=== PATIENT | male | born 1945 | race Caucasian/White ===

== ENCOUNTER 2024-01-05 18:43 | Inpatient (IN) ==
--- NOTE | 2024-01-05 19:13 | Emergency Department Note ---
Impression & Plan Anemia ADMIT ED Provider Note HPI: History obtained from patient. The patient is a 78-year-old gentleman with history of coronary artery disease, on aspirin and Plavix, presents the emergency department stating that he received a call from his PCP today telling him his hemoglobin was low and his creatinine was elevated and he needed to go to the ER. Patient states otherwise he has been in his normal state of health, he states at times he does feel that his stool has been darker than usual. Patient denies any nausea or vomiting, denies any abdominal pain. On arrival here to the ED the patient is hemodynamically stable. He otherwise appears to be in no acute distress. ROS: - Per HPI Differential Diagnosis: Hemorrhoids, colonic AVM, colonic tumor/colon cancer, peptic ulcer disease/upper GI bleed, prerenal azotemia, amongst other potential pathologies. *Outpatient medications and allergy history reviewed. PE: General: Alert HEENT: Normocephalic, trachea midline Eyes: Extraocular eye movement is intact, no scleral erythema Pulmonary: Clear to auscultation bilaterally, no wheezing Cardio: Regular rate and rhythm GI: Abdomen is soft to palpation, rectal examination shows evidence of external hemorrhoids without active bleeding, occult stool testing is positive : No suprapubic tenderness MSK: No evidence of trauma or malformation of the extremities, no edema Skin: No evidence of rash Neuro: Alert, no focal deficits Psychiatric: Cooperative INDEPENDENT INTERPRETATIONS: cardiac monitor: (As interpreted by myself): - An order was placed for continuous cardiac monitoring - Patient was noted to be in sinus rhythm with a rate of 90 Interventions provided in ED: -IV fluid bolus Medical Decision Making: IV was established and lab work obtained, patient was placed on court recording monitor. Lab work shows no leukocytosis, hemoglobin is 8.5 (noted to be 8.4 on outpatient lab work yesterday). Platelet count is within normal limits, CMP shows BUN of 49 and creatinine elevated at 3.63, this appears to be new in comparison to creatinine of 1.7 from April 2023. Lipase is also noted to be slightly elevated at 212, patient denies any abdominal pain. Urinalysis shows 1+ blood without any obvious infection. Patient does have an occult positive stool test. Given his newly found anemia in addition to acute kidney injury in comparison to lab work from April, I do feel he should be admitted to the hospital for GI consultation and further workup. [facility] hospitalist service was consulted for admission, case was discussed with Dr. Stern, and the patient was placed for admission in stable condition. Patient was in agreement to this plan. Consultants/Discussions held with other healthcare providers: -Hospitalist, Dr. Stern Disposition discussion held by myself with: -Patient Diagnosis: 1. Anemia, acute, nonspecific 2. Occult positive stool test, acute 3. Acute kidney injury 4. Elevated BUN Disposition: Admission Satnam Mojica DO Emergency Medicine Past Med/Surg History Problem List (Updated 01/05/24 @ 20:33 by Satnam Mojica DO) Anemia (Acute) Social History Smoking Status: Never smoker Preferred Language: Nepali Feels Safe at Home: Yes Allergies Allergies Allergy/AdvReac Type Severity Reaction Status Date / Time No Known Allergies Allergy Verified 01/05/24 20:29 Home Meds Home Medications Medication Instructions Recorded Confirmed Saccharomyces boulardii 250 mg 250 mg PO BID 01/05/24 01/05/24 capsule (Florastor) acetaminophen 500 mg tablet 500 mg PO DIRECTED PRN 01/05/24 01/05/24 (Tylenol Extra Strength) ARTHRITIC PAIN aspirin 325 mg tablet,delayed 325 mg PO DAILY 01/05/24 01/05/24 release carvedilol 12.5 mg tablet 12.5 mg PO BID 01/05/24 01/05/24 clopidogrel 75 mg tablet 75 mg PO QAM 01/05/24 01/05/24 cyanocobalamin (vitamin B-12) 1,000 mcg PO DAILY 01/05/24 01/05/24 1,000 mcg tablet (Vitamin B-12) glucosamine 750 [id number] 1 tab PO BID 01/05/24 01/05/24 no1 644 mg-C 30 mg-yadira 1 mg tablet (Osteo Bi-Flex Triple Strength) losartan 50 mg tablet 50 mg PO DAILY 01/05/24 01/05/24 naproxen sodium 220 mg tablet 220 mg PO Q8H PRN ARTHRITIC PAIN 01/05/24 01/05/24 (Aleve) omega-3 fatty acids 1,000 mg 1,000 mg PO DAILY 01/05/24 01/05/24 capsule rosuvastatin 40 mg tablet 40 mg PO DAILY 01/05/24 01/05/24 Results & Data (ED) Vital Signs Vital Signs - 24 hr 01/05/24 18:59 01/05/24 19:12 01/05/24 19:24 Temperature 36.8 C Temperature Source Temporal Artery Scan Pulse Rate 82 89 Respiratory Rate 18 Respiratory Effort / Characteristics Non-Labored Spontaneous Respiratory Depth Normal Respiratory Pattern Regular Blood Pressure 122/60 Blood Pressure Mean 80 Pulse Oximetry 100 100 Oxygen Delivery Method Room Air Sepsis Recent Fever Within 48 Hours No Sepsis New/Unexplained Change in Mental Status N/A Sepsis Action Taken by Nursing No Action Required Laboratory Data 01/05/24 19:18 01/05/24 19:18 Lab Results 01/05/24 01/05/24 Range/Units 19:18 19:30 WBC 8.54 (4.8-10.8) K/ul RBC 2.81 L (4.70-6.10) M/uL Hgb 8.5 L (14.0-18.0) g/dl Hct 25.3 L (42.0-52.0) % MCV 90.0 (80.0-100.0) fL MCH 30.2 (25.0-34.0) pg MCHC 33.6 (32.0-36.0) g/dL RDW Std Deviation 45.2 (36.4-46.3) fL RDW Coeff of Emmett 13.6 (11.5-14.5) % Plt Count 354 (130-400) K/uL MPV 9.3 L (9.4-12.4) fL Immature Gran % (Auto) 0.7 % Neut % (Auto) 75.2 % Lymph % (Auto) 14.8 % [place] % (Auto) 6.7 % Eos % (Auto) 1.9 % Baso % (Auto) 0.7 % Neut # (Auto) 6.43 (1.40-6.50) K/uL Lymph # (Auto) 1.26 (1.20-3.40) K/uL [place] # (Auto) 0.57 (0.11-0.59) K/uL Eos # (Auto) 0.16 (0.00-0.50) K/uL Baso # (Auto) 0.06 (0.00-0.20) K/uL Immature Gran # (Auto) 0.06 (0.01-0.20) K/uL PT 10.8 (9.0-12.0) Seconds INR 1.0 (0.9-1.1) Sodium 136 (136-145) mmol/L Potassium 3.6 (3.5-5.1) mmol/L Chloride 104 (98-107) mmol/L Carbon Dioxide 22 (21-32) mmol/L Anion Gap 10 (3-11) BUN 49 H (6-23) mg/dl Creatinine 3.63 H (0.6-1.4) mg/dl Est Cr Clr Drug Dosing 16.2 ml/min Est GFR ( Amer) 17.8 ml/min Est GFR (Non-Af Amer) 15.3 ml/min BUN/Creatinine Ratio 13.5 (10-20) Glucose 146 H (70-99(Fasting)) mg/dl Calcium 10.6 H (8.6-10.3) mg/dl Total Bilirubin 0.3 (0.2-1.0) mg/dl AST 14 (13-39) U/L ALT 9 (7-52) U/L Alkaline Phosphatase 54 (34-104) U/L Total Protein 7.7 (6.0-8.3) gm/dl Albumin 4.6 (3.4-5.0) gm/dl Globulin 3.1 (2.5-4.0) gm/dl Albumin/Globulin Ratio 1.5 (0.9-2) Lipase 212 H (11-82) U/L Urine Color Yellow Urine Appearance Clear (Clear) Urine pH 5.5 (4.5-7.5) Ur Specific [place] 1.005 (1.000-1.030) Urine Protein Trace H (Negative) Urine Glucose (UA) Negative (Negative) Urine Ketones Negative (Negative) Urine Blood 1+ H (Negative) Urine Nitrite Negative (Negative) Urine Bilirubin Negative (Negative) Urine Urobilinogen Negative (Negative) Ur Leukocyte Esterase Negative (Negative) Urine WBC (Auto) 0-5 (0-5) /hpf Urine RBC (Auto) 0-2 (0-2) /hpf U Hyaline Cast (Auto) 3-5 H (0-2) /lpf U Epithel Cells (Auto) 0-2 (0-2) /hpf Urine Bacteria (Auto) None Seen (None Seen) Urine Yeast Present A (None Prsent) Administered Medications Discontinued Medications Sodium Chloride (Nss) 500 mls @ 999 mls/hr IV .Q31M STA Stop: 01/05/24 19:42 Last Infusion: 01/05/24 20:35 Dose: Infused Documented By: Admin: 01/05/24 19:31 Dose: 999 mls/hr Documented By: JEFFERSON Discharge Plan Visit Data Chief Complaint: Referred by Doctor Stated Complaint: ABN TEST, HEMOGLOBIN ED Provider: Satnam Mojica Discharge Problem: Anemia Forms Stand Alone Forms: [facility] [employer] Prescriptions Prescriptions: No Action losartan 50 mg tablet 50 mg PO DAILY carvedilol 12.5 mg tablet 12.5 mg PO BID Rx Instructions: TAKE WITH FOOD omega-3 fatty acids 1,000 mg Capsule 1,000 mg PO DAILY cyanocobalamin (vitamin B-12) [Vitamin B-12] 1,000 mcg Tablet 1,000 mcg PO DAILY clopidogrel 75 mg tablet 75 mg PO QAM acetaminophen [Tylenol Extra Strength] 500 mg Tablet 500 mg PO DIRECTED PRN (Reason: ARTHRITIC PAIN) aspirin 325 mg Tablet,Delayed Release (Dr/Ec) 325 mg PO DAILY naproxen sodium [Aleve] 220 mg Tablet 220 mg PO Q8H PRN (Reason: ARTHRITIC PAIN) rosuvastatin 40 mg tablet 40 mg PO DAILY Saccharomyces boulardii [Florastor] 250 mg Capsule 250 mg PO BID Osteo Bi-Flex Triple Strength 750 mg-644 mg- 30 mg-1 mg Tablet 1 tab PO BID Referrals Referrals: Zachary Chambers MD [Outside Practitioners] - Discharge Problem: Anemia Qualifiers: Anemia type: unspecified type Qualified Code(s): D64.9 - Anemia, unspecified
[2024-01-05] MEDS: SODIUM CHLORIDE 0.9% 500 ML IV STA (19:31)
[2024-01-05 19:55] LABS: Appearance Urine Clear (Clear); Bacteria Urine Automated None Seen (None Seen); Bilirubin Urine Negative (Negative); Blood Urine 1+ (Negative); Color Urine Yellow; Epithelial Cell Urine Auto 0-2 /hpf (0-2); Glucose Urine UA Negative (Negative); Ketones Urine Negative (Negative); Leukocyte Esterase Urine Negative (Negative); Nitrite Urine Negative (Negative); Protein Urine Trace (Negative); RBC Urine Automated 0-2 /hpf (0-2); Specific Gravity Urine 1.005 (1.000-1.030); Urobilinogen Urine Negative (Negative); WBC Urine Automated 0-5 /hpf (0-5); pH Urine 5.5 (4.5-7.5)
[2024-01-05 19:56] LABS: Basophils # (auto) 0.06 K/uL (0.00-0.20); Basophils % (auto) 0.7 %; Eosinophils # (auto) 0.16 K/uL (0.00-0.50); Eosinophils % (auto) 1.9 %; Hematocrit (blood only) 25.3 % (42.0-52.0); Hemoglobin 8.5 g/dl (14.0-18.0); Immature Granulocytes # (auto) 0.06 K/uL (0.01-0.20); Immature Granulocytes % (auto) 0.7 %; Lymphocytes # (auto) 1.26 K/uL (1.20-3.40); Lymphocytes % (auto) 14.8 %; Mean Corpuscular Hemoglobin 30.2 pg (25.0-34.0); Mean Corpuscular Hgb Conc 33.6 g/dL (32.0-36.0); Mean Platelet Volume 9.3 fL (9.4-12.4); Monocytes # (auto) 0.57 K/uL (0.11-0.59); Monocytes % (auto) 6.7 %; Neutrophils # (auto) 6.43 K/uL (1.40-6.50); Neutrophils % (auto) 75.2 %; Platelet Count 354 K/uL (130-400); RDW Coefficient of Variation 13.6 % (11.5-14.5); RDW Standard Deviation 45.2 fL (36.4-46.3); Red Blood Count 2.81 M/uL (4.70-6.10); White Blood Count 8.54 K/ul (4.8-10.8)
[2024-01-05 20:04] LABS: Albumin Globulin Ratio 1.5 (0.9-2); Albumin Level 4.6 gm/dl (3.4-5.0); BUN Creatinine Ratio 13.5 (10-20); Bilirubin,Total 0.3 mg/dl (0.2-1.0); Calcium 10.6 mg/dl (8.6-10.3); Creatinine Clr Calc Pharmacy 16.2 ml/min; Est GFR (African American) 17.8 ml/min; Est GFR (Non-African American) 15.3 ml/min; Globulin 3.1 gm/dl (2.5-4.0); Potassium 3.6 mmol/L (3.5-5.1); Total Protein 7.7 gm/dl (6.0-8.3)
[2024-01-05 20:20] LABS: Prothrombin Time 10.8 Seconds (9.0-12.0)
[2024-01-05 21:39] LABS: Phosphorus 3.4 mg/dl (2.5-4.9)
--- NOTE | 2024-01-05 22:07 | History & Physical Report ---
Date of Service January 05, 2024 Assessment & Plan (1) Anemia: Plan: ? Secondary to transient UGIB from 2 weeks ago FOBT done at the ER was positive. ARF on CRI chronic diastolic heart failure (EF 58%, TTE 2022), patient euvolemic to dry hx PVD status post surgery hypertension, stable hyperlipidemia, on statin Rx DM2 diet-controlled, well-controlled as of recent outpatient hemoglobin A1c of 5.6 few days ago past tobacco abuse Admit to medical telemetry IV PPI Hold antiplatelet Rx for now Anemia workup, transfuse PRBC if hemoglobin less than 8 and or from symptomatic anemia GI consult re: GI bleed N.p.o. after midnight in anticipation of endoscopy Monitor creatinine response to IVF, renal ultrasound without improvement; hold ARB until creatinine back to baseline ISS BG goal 1 10-1 40 DVT prophylaxis. SCDs Re: GI bleed Full code Text document was generated using [employer] voice recognition software. It may contain grammatical or spelling errors. Kindly contact undersigned for clarification of any documentation item in question. History of Present Illness Chief Complaint: Abnormal blood work Primary Care Provider: Kelvin Joseph MD History obtained from patient and records. Medical history significant for chronic diastolic heart failure (EF 58%, TTE 2022), PVD status post surgery, hypertension, hyperlipidemia, DM2 diet- controlled, CRI (baseline creatinine 1.5), urolithiasis, past tobacco abuse. Patient saw PCP yesterday on follow-up visit. 20 pound weight loss in 2 months as per patient. Possible depression from 's demise years ago as per patient but denies suicidality. Transient dark stool passage 2 weeks ago without abdominal pain. Denies hematuria or flank pain. Patient denies headache, chest pain, SOB. No inordinate OTC NSAID intake. Abnormal outpatient blood work drawn from 2 days ago resulted yesterday. Hemoglobin 8.4, creatinine 3.7. Patient directed to ER for evaluation. 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 Allergies Allergy/AdvReac Type Severity Reaction Status Date / Time No Known Allergies Allergy Verified 01/05/24 20:29 Home Medications Medication Instructions Recorded Confirmed Type Saccharomyces boulardii 250 mg 250 mg PO BID 01/05/24 01/05/24 History capsule (Florastor) acetaminophen 500 mg tablet 500 mg PO DIRECTED PRN 01/05/24 01/05/24 History (Tylenol Extra Strength) ARTHRITIC PAIN aspirin 325 mg tablet,delayed 325 mg PO DAILY 01/05/24 01/05/24 History release carvedilol 12.5 mg tablet 12.5 mg PO BID 01/05/24 01/05/24 History clopidogrel 75 mg tablet 75 mg PO QAM 01/05/24 01/05/24 History cyanocobalamin (vitamin B-12) 1,000 mcg PO DAILY 01/05/24 01/05/24 History 1,000 mcg tablet (Vitamin B-12) glucosamine 750 [id number]-[id number] 1 tab PO BID 01/05/24 01/05/24 History no1 644 mg-C 30 mg-yadira 1 mg tablet (Osteo Bi-Flex Triple Strength) losartan 50 mg tablet 50 mg PO DAILY 01/05/24 01/05/24 History naproxen sodium 220 mg tablet 220 mg PO Q8H PRN ARTHRITIC PAIN 01/05/24 01/05/24 History (Aleve) omega-3 fatty acids 1,000 mg 1,000 mg PO DAILY 01/05/24 01/05/24 History capsule rosuvastatin 40 mg tablet 40 mg PO DAILY 01/05/24 01/05/24 History Past Med/Surg History Problem List (Updated 01/05/24 @ 20:33 by Satnam Mojica DO) Anemia (Acute) Social History Smoking Status: Never smoker Preferred Language: Japanese Feels Safe at Home: Yes Review of Systems Review of Systems: As per HPI, all other systems reviewed and negative Physical Exam Physical Exam: GENERAL: Comfortable, pleasant, no respiratory distress SKIN: Pallor, warm HEENT: Alopecia, pale palpebral conjunctivae, no ptosis, dry buccal mucosa NECK : Supple, no tenderness CHEST : CTA, no tenderness HEART : RRR, no obvious murmurs ABDOMEN: Some distention, nontender EXTREMITIES : No LE swelling/tenderness, no other conspicuous deformities noted NEUROLOGIC : Coherent, no facial asymmetry, no other gross focality Results & Data Results & Data Vital Signs (Past 12 Hours) Vital Signs Temp Pulse Pulse Resp BP BP Pulse Ox 01/05/24 21:00 90 18 137/56 L 99 07/24/24 19:24 89 01/05/24 19:12 100 01/05/24 18:59 36.8 C 82 18 122/60 100 O2 Del Method 01/05/24 21:00 Room Air 01/05/24 19:24 01/05/24 19:12 01/05/24 18:59 Room Air Laboratory Results Laboratory Results WBC 8.54 K/ul (4.8-10.8) 01/05/24 19:18 RBC 2.81 M/uL (4.70-6.10) L 01/05/24 19:18 Hgb 8.5 g/dl (14.0-18.0) L 01/05/24 19:18 Hct 25.3 % (42.0-52.0) L 01/05/24 19:18 MCV 90.0 fL (80.0-100.0) 01/05/24 19:18 MCH 30.2 pg (25.0-34.0) 01/05/24 19:18 MCHC 33.6 g/dL (32.0-36.0) 01/05/24 19:18 RDW Std Deviation 45.2 fL (36.4-46.3) 01/05/24 19:18 RDW Coeff of Emmett 13.6 % (11.5-14.5) 01/05/24 19:18 Plt Count 354 K/uL (130-400) 01/05/24 19:18 MPV 9.3 fL (9.4-12.4) L 01/05/24 19:18 Immature Gran % (Auto) 0.7 % 01/05/24 19:18 Neut % (Auto) 75.2 % 01/05/24 19:18 Lymph % (Auto) 14.8 % 01/05/24 19:18 [place] % (Auto) 6.7 % 01/05/24 19:18 Eos % (Auto) 1.9 % 01/05/24 19:18 Baso % (Auto) 0.7 % 01/05/24 19:18 Neut # (Auto) 6.43 K/uL (1.40-6.50) 01/05/24 19:18 Lymph # (Auto) 1.26 K/uL (1.20-3.40) 01/05/24 19:18 [place] # (Auto) 0.57 K/uL (0.11-0.59) 01/05/24 19:18 Eos # (Auto) 0.16 K/uL (0.00-0.50) 01/05/24 19:18 Baso # (Auto) 0.06 K/uL (0.00-0.20) 01/05/24 19:18 Immature Gran # (Auto) 0.06 K/uL (0.01-0.20) 01/05/24 19:18 PT 10.8 Seconds (9.0-12.0) 01/05/24 19:18 INR 1.0 (0.9-1.1) 01/05/24 19:18 Sodium 136 mmol/L (136-145) 01/05/24 19:18 Potassium 3.6 mmol/L (3.5-5.1) 01/05/24 19:18 Chloride 104 mmol/L (98-107) 01/05/24 19:18 Carbon Dioxide 22 mmol/L (21-32) 01/05/24 19:18 Anion Gap 10 (3-11) 01/05/24 19:18 BUN 49 mg/dl (6-23) H 01/05/24 19:18 Creatinine 3.63 mg/dl (0.6-1.4) H 01/05/24 19:18 Est Cr Clr Drug Dosing 16.2 ml/min 01/05/24 19:18 Est GFR ( Amer) 17.8 ml/min 01/05/24 19:18 Est GFR (Non-Af Amer) 15.3 ml/min 01/05/24 19:18 BUN/Creatinine Ratio 13.5 (10-20) 01/05/24 19:18 Glucose 146 mg/dl (70-99(Fasting)) H 01/05/24 19:18 Calcium 10.6 mg/dl (8.6-10.3) H 01/05/24 19:18 Phosphorus 3.4 mg/dl (2.5-4.9) 01/05/24 19:18 Magnesium 2.0 mg/dl (1.7-2.4) 01/05/24 19:18 Total Bilirubin 0.3 mg/dl (0.2-1.0) 01/05/24 19:18 AST 14 U/L (13-39) 01/05/24 19:18 ALT 9 U/L (7-52) 01/05/24 19:18 Alkaline Phosphatase 54 U/L (34-104) 01/05/24 19:18 Total Protein 7.7 gm/dl (6.0-8.3) 01/05/24 19:18 Albumin 4.6 gm/dl (3.4-5.0) 01/05/24 19:18 Globulin 3.1 gm/dl (2.5-4.0) 01/05/24 19:18 Albumin/Globulin Ratio 1.5 (0.9-2) 01/05/24 19:18 Lipase 212 U/L (11-82) H 01/05/24 19:18 Urine Color Yellow 01/05/24 19:30 Urine Appearance Clear (Clear) 01/05/24 19:30 Urine pH 5.5 (4.5-7.5) 01/05/24 19:30 Ur Specific [place] 1.005 (1.000-1.030) 01/05/24 19:30 Urine Protein Trace (Negative) H 01/05/24 19:30 Urine Glucose (UA) Negative (Negative) 01/05/24 19:30 Urine Ketones Negative (Negative) 01/05/24 19:30 Urine Blood 1+ (Negative) H 01/05/24 19:30 Urine Nitrite Negative (Negative) 01/05/24 19:30 Urine Bilirubin Negative (Negative) 01/05/24 19:30 Urine Urobilinogen Negative (Negative) 01/05/24 19:30 Ur Leukocyte Esterase Negative (Negative) 01/05/24 19:30 Urine WBC (Auto) 0-5 /hpf (0-5) 01/05/24 19:30 Urine RBC (Auto) 0-2 /hpf (0-2) 01/05/24 19:30 U Hyaline Cast (Auto) 3-5 /lpf (0-2) H 01/05/24 19:30 U Epithel Cells (Auto) 0-2 /hpf (0-2) 01/05/24 19:30 Urine Bacteria (Auto) None Seen (None Seen) 01/05/24 19:30 Urine Yeast Present (None Prsent) A 07/24/24 19:30 Blood Type O Positive 01/05/24 19:42 Antibody Screen NEGATIVE 01/05/24 19:42 Diagnostic Findings Chest x-ray as per my interpretation, atelectasis, elevated right hemidiaphragm (1) Anemia Anemia type: unspecified type Qualified Code(s): D64.9 - Anemia, unspecified
[2024-01-05] MEDS ORDERED: ACETAMINOPHEN 325 MG TAB PO PRN (22:11)
[2024-01-05] MEDS ORDERED: PROMETHAZINE HCL 6.25 MG in SODIUM CHLORIDE 0.9% 50 ML IV PRN (22:13)
[2024-01-05] MEDS: SODIUM CHLORIDE 0.9% 1,000 ML IV STA (22:24)
[2024-01-05] MEDS: PANTOprazole 80 MG in DEXTROSE 5% 100 ML IV STA (22:24)
[2024-01-05 23:08] LABS: Hematocrit (blood only) 20.2 % (42.0-52.0); Reticulocyte % 1.56 % (0.50-2.00); Reticulocytes # 0.04 10^6/uL (0.020-0.100)
[2024-01-05] MEDS ORDERED: SODIUM CHLORIDE 0.9% 250 ML IV PRN (23:13)
[2024-01-05 23:22] LABS: BUN Creatinine Ratio 12.9 (10-20); Calcium 9.5 mg/dl (8.6-10.3); Creatinine Clr Calc Pharmacy 16.1 ml/min; Est GFR (African American) 17.6 ml/min; Est GFR (Non-African American) 15.2 ml/min; Potassium 3.9 mmol/L (3.5-5.1)
[2024-01-05] MEDS ORDERED: DEXTROSE 50% 50 ML SYRINGE IV PRN (23:34)
[2024-01-05] MEDS ORDERED: CARBOHYDRATES FOR HYPOGLYCEMIA PO PRN (23:34)
[2024-01-05] MEDS ORDERED: GLUCOSE 40% GEL 15 GM TUBE PO PRN (23:34)
[2024-01-05] MEDS ORDERED: GLUCAGON FOR INJ 1 MG VIAL SQ PRN (23:34)
[2024-01-05] MEDS ORDERED: GLUCOSE 10 TAB/TUBE PO PRN (23:34)
[2024-01-05 23:45] LABS: Ferritin 34.9 ng/ml (8-388); Transferrin 232 mg/dl (200-360)
[2024-01-05 23:46] LABS: Folate (Folic Acid),Ser orPlas 9.63 ng/ml (>5.38)
[2024-01-06] MEDS: carvediloL 12.5 MG TAB PO SCH (00:43)
[2024-01-06] MEDS: INSULIN ASPART PER UNIT CHARGE SC SCH (00:45)
[2024-01-06 01:22] LABS: Creatine Kinase 207 U/L (30-223); Iron 72 mcg/dl (35-175)
[2024-01-06] MEDS: SODIUM CHLORIDE 0.9% 1,000 ML IV ONE (03:50)
--- NOTE | 2024-01-06 05:02 | Ultrasound Report ---
Exam(s): US RENAL EXAM: US Retroperitoneal Limited, Renal CLINICAL HISTORY: Reason for exam: renal failure. TECHNIQUE: Real-time limited ultrasound of the retroperitoneum with image documentation. COMPARISON: No relevant prior studies available. FINDINGS: Right kidney: Right kidney measures 11.5 cm in length. No stones. No hydronephrosis. Left kidney: Left kidney measures 11 cm in length. No stones. No hydronephrosis. Bladder: Bilateral ureteric jets are seen. Free fluid: Trace perihepatic fluid is seen. Other findings: Moderate prostatomegaly. IMPRESSION: 1. No hydronephrosis or nephrolithiasis 2. Moderate prostatomegaly Electronically signed by: Arjun Cosme MD 01/06/24 05:01 AM
[2024-01-06 06:03] LABS: Basophils # (auto) 0.04 K/uL (0.00-0.20); Basophils % (auto) 0.5 %; Eosinophils # (auto) 0.16 K/uL (0.00-0.50); Eosinophils % (auto) 2.1 %; Hematocrit (blood only) 24.5 % (42.0-52.0); Hemoglobin 8.3 g/dl (14.0-18.0); Immature Granulocytes # (auto) 0.05 K/uL (0.01-0.20); Immature Granulocytes % (auto) 0.6 %; Lymphocytes # (auto) 1.05 K/uL (1.20-3.40); Lymphocytes % (auto) 13.6 %; Mean Corpuscular Hemoglobin 29.4 pg (25.0-34.0); Mean Corpuscular Hgb Conc 33.9 g/dL (32.0-36.0); Mean Corpuscular Volume 86.9 fL (80.0-100.0); Mean Platelet Volume 9.1 fL (9.4-12.4); Monocytes # (auto) 0.59 K/uL (0.11-0.59); Monocytes % (auto) 7.7 %; Neutrophils # (auto) 5.82 K/uL (1.40-6.50); Neutrophils % (auto) 75.5 %; Platelet Count 257 K/uL (130-400); RDW Coefficient of Variation 13.8 % (11.5-14.5); RDW Standard Deviation 43.3 fL (36.4-46.3); Red Blood Count 2.82 M/uL (4.70-6.10); White Blood Count 7.71 K/ul (4.8-10.8)
[2024-01-06 06:16] LABS: BUN Creatinine Ratio 12.7 (10-20); Creatinine Clr Calc Pharmacy 16.3 ml/min; Est GFR (African American) 17.9 ml/min; Est GFR (Non-African American) 15.4 ml/min; Potassium 3.7 mmol/L (3.5-5.1)
--- OUTSIDE RECORDS SUMMARY | 2024-01-06 07:22 | External Medical Summary | Summary of Care ---
Author Name Unknown Organization [facility] Address [address] [facility] [place] [address] Phone [phone] Care Team Providers Care Intensive Care Specialist Name Role Phone Unavailable Primary Care Provider Unavailabl e Reason for Visit * Reason Comments Outpatient Testing Encounter Details Date Type Department Care Team (Late st Contact Info) Description 12/21/2023 10:20 AM EDT Laboratory Laboratory [address] [place] [phone] [place], Lab [address] [place] [address] Type 2 diabetes mellitus with hemoglobin A1c goal of less than 7.0% ([facility]); Encounter for long-term (current) use of medications Allergies No known active allergiesdocumented as of this encounter (statuses as of 12/21/2023) Medications Medication Sig Dispensed Refills Start Date End Date Status OSTEO BI-FLEX ADV TRIPLE ST PO TABS Take by mouth 1 Tablet 2 times a day . Active OMEGA-3 FATTY ACIDS 1200 MG PO CAPS Fish oil Active Saccharomyces boulardii (PROBIOTIC) 250 MG CAPS Take by mouth 2 times a day . 01/31/2019 Active Clopidogrel Bisulfate 75 MG Oral Tablet (pLAVix) Take 1 Tablet by mouth in the morning. 06/02/2021 Active Vitamin B-12 1000 MCG Oral TabletIndications:Enc ounter for long-term (current) use of medications Take by mouth 1 Tablet in the morning. 100 Tablet 1 11/07/2021 Active Aspirin Buf(BmNaki-TsFbzr-PsP ) 325 MG Oral Tablet Take by mouth 1 Tablet daily . 02/24/2022 Active metFORMIN HCl 1000 MG Oral Tablet (Glucophage)Indicatio ns:Type 2 diabetes mellitus with hemoglobin A1c goal of less than 7.0% (HCC),Abnormal glucose,Hyperglycemia TAKE 1 TABLET BY MOUTH TWICE DAILY WITH MORNING AND EVENING MEALS 180 Tablet 1 08/02/2023 Active Losartan Potassium 50 MG Oral Tablet (Cozaar)Indications:E ssential hypertension with goal blood pressure less than 140/90,Cardiac disease TAKE 1 TABLET BY MOUTH DAILY 90 Tablet 1 08/23/2023 Active Tamsulosin HCl 0.4 MG Oral Capsule (Flomax) Take 1 Capsule by mouth in the morning. 90 Capsule 1 10/22/2023 Active Carvedilol 12.5 MG Oral Tablet (Coreg)Indications:At herosclerosis of [place] coronary artery of [place] heart without angina pectoris,Essential hypertension with goal blood pressure less than 140/90,Cardiac disease TAKE 1 TABLET BY MOUTH TWICE DAILY WITH FOOD 180 Tablet 3 12/13/2023 Active Rosuvastatin Calcium 40 MG Oral Tablet (Crestor)Indications: Dyslipidemia, goal LDL below 70 TAKE 1 TABLET BY MOUTH IN THE MORNING 90 Tablet 3 12/13/2023 Active documented as of this encounter (statuses as of 12/21/2023) Active Problems Problem Noted Date Diagnosed Date Chronic kidney disease, stage 3a 05/24/2023 Overview: Per CKD protocol Prediabetes 07/25/2018 Overview: Per Prediabetes protocol #1 Primary hypertension 12/09/2015 Seborrheic keratosis 11/05/2011 DYSLIPIDEMIA, GOAL LDL BELOW 100 05/23/2009 Overview: Per Lipid Taxonomy. Osteoarthrosis Atherosclerosis of [place] co ronary artery of [place] heart without angina pectoris STAGE 1 DIASTOLIC DYSFUNCTION BMI 29.0-29.9,adult documented as of this encounter (statuses as of 12/21/2023) Resolved Problems Problem Noted Date Diagnosed Date Resolved Date Encounter for surveillance of abnormal nevi 05/04/2016 12/23/2017 Overview: dysplastic nevus (L lower flank) AK (actinic keratosis) 02/28/201407/06 Hyperglycemia 05/09/2012 12/29/2018 Overview: glucose 180 Conjunctivitis 01/09/2010 11/14/2012 Benign neoplasm of colon 07/14/200701/2018 Mixed dyslipidemia 9 Overview: Per Lipid Taxonomy. History of colon polyps 05/14 HTN, goal below 140/90 12/16 documented as of this encounter (statuses as of 12/21/2023) Immunizations Name Administration Dates Next Due COVID-19 mRNA, LNP-s, No Pre serve, 2-Dose Series (Ule) 03/25/2021,08/20/2020,07/30/2020 COVID-19, LNP-s, No Preserve , Sae-sucrose, Ages 12+ (Pfizer) 09/23/2021 COVID-19, MRNA-LNP, 23-24, P F, 30 MCG/0.3 mL, 12 YRS AND ABOVE, IM ([employer]) 03/18/2023 Covid-19, Mrna, Lnp-s, Pf, B ivalent, 30 Mcg, IM, 12 yrs and above (Ule) 04/14/2022 Pneumococcal Conjugate Vacc, 13 Valent (Prevnar) 11/19/2014 Pneumococcal Polysaccharide PPV23 (Pneumovax) 05/19/2013,01/12/2008 Seasonal Influenza, PF, 6 M & above, IM , (FluLaval or Fluzone) 04/20/2018,03/26/2017 Seasonal Influenza, Quadriva lent Hd (Fluzone Hd) 02/19/2023,02/24/2022,03/21/2021 Seasonal Influenza, Quadriva lent, No Preserve, IM 03/07/2020,03/19/2016,04/09/2015 Seasonal Influenza, Split, I IV3, With Preserve, Inj 02/28/2014,03/23/2013,04/05/2012,04/21,04/01/2010,02/25/2009,03/19/2008 Seasonal Influenza, Trivalen t, Adjuvanted, 65+ yrs 04/18/2019 TD - Tetanus/Diptheria (ADULT) 06/15/2003 TDAP (age 10 and older)(Boostrix) 10/04/2015 TDAP, Age 7 and older, IM (Adacel) 11/05/2011 Varicella Zoster Vaccine (Adult) 12/14/2011 Zoster Vaccine Recombinant (Shingrix) 07/11/2020 ,03/07/2020 documented as of this encounter Social History Tobacco Use Types Packs/Day Years Used Date Smoking Tobacco: Former Cigarettes 3 30 0 06/14/1967 - 06/14/1997 Smokeless Tobacco: Current Snuff Comments:smoked 3 packs per day x 30 Alcohol Use Standard Drinks/Week Comments Yes 0 (1 standard drink = 0.6 oz pur e alcohol) a couple gin and tonics a week PHQ-2 Answer Date Recorded PHQ Adult Total Score 1 07/18/2020 Hunger Vital Sign Answer Date Recorded Worried About Running Out of Food in the Last Ye ar Never true 12/29/2018 Ran Out of Food in the Last Year Never true 12/29/2018 Utilities Answer Date Recorded Do you have trouble paying y our heating, water, or electric bill? (Adult - for ages 18 years and over) Not on file 11/30/2023 Is your family able to pay t he heat, water, or electric bill? (Household - for ages 0-17 years) Not on file 11/30/2023 Does your family have access to good internet? (Household - for ages 0-17 years) Not on file 11/30/2023 Social Connections Answer Date Recorded How often do you feel lonely or isolated from those around you? (Adult - for ages 18 years and over) Not on file 11/30/2023 Sex and Gender Information Value Date Recorded Sex Assigned at Not on file Gender Identity Not on file Sexual Orientation Straight 07/18/2020 11 :10 AM EST Job Start Date Occupation Industry Not on file Not on file Not on file documented as of this encounter Plan of Treatment Upcoming Encounters Date Type Department Care Team (Late st Contact Info) Description 01/04/2024 11:00 AM EDT Office Visit Family Medicine [address] [place] [phone] Kelvin Joseph MD [address] [place] [address] [place] [address] 05/03/2024 2:00 PM EST Office Visit Cardiology, [facility] [address] [place] [address] Wen Woodson PA-C [address] [place] [phone] 09/11/2024 11:00 AM EDT Office Visit Dermatology [address] [place] [address] Kylah Basurto PA-C [address] [place] [address] [place] [phone] Pending Results Name Type Priority Associated Diagnoses Date /Time HEMOGLOBIN A1C Lab Routine Type 2 diabetes mellitus with hemoglobin A1c goal of less than 7.0% (HCC) Encounter for long-term (current) use of medications 12/21/2023 10:00 AM EDT ALBUMIN / CREATININE RATIO, URINE Lab Routine Type 2 diabetes mellitus with hemoglobin A1c goal of less than 7.0% (HCC) Encounter for long-term (current) use of medications 12/21/2023 10:00 AM EDT LIPID PANEL WITH DIRECT LDL IF TG IS HIGH Lab Routine Type 2 diabetes mellitus with hemoglobin A1c goal of less than 7.0% (HCC) Encounter for long-term (current) use of medications 12/21/2023 10:00 AM EDT Scheduled Procedures Name Priority Associated Diagnoses Date/Ti me COLONOSCOPY FLEXIBLE PROXIMAL DIAGNOSTIC Recall History of colon polyps Health Maintenance Due Date Last Done Comments CKD PHOS USE SMARTSET 85519 1963 Depression Screening 07/18/2021 07/18/2020 CKD HGB USE SMARTSET 19599 06/02/202206/02, 06/02/2021, 11/22/2020, Additional history exists B-12 01/20/2023 01/20/2022, 02/0 06/2021, 07/11/2020, Additional history exists COVID-19 Vaccine ( season) 2023 03/18/2023, 04/14/2022, 09/23/2021, Additional history exists Albumin/Creatinine Ratio 07/24/2023 023, 07/15/2021, 07/11/2020, Additional history exists HbA1c 07/24/2023 07/24/2022, 08/0 02/2022, 07/15/2021, Additional history exists Colonoscopy 11/01/2023 10/31/2021, 10/31/2021 GFR 12/03/2023 06/03/2023, 04/14, 07/24/2022, Additional history exists Influenza Vaccine (FLU shot) (#1) 2024 02/19/2023, 02/24/2022, 03/21/2021, Additional history exists DTaP,Tdap,and Td Vaccines (3 - Td or Tdap) 10/03/2025 10/04/2015, 11/05/2011, 06/15/2003 Pneumococcal Vaccine: 65+ Years Completed 11/19/2014, 05/19/2013, 01/12/2008 Zoster Vaccines Completed 07/11/2020, 02/13, 12/14/2011 Cologuard Discontinued 08/13/2021, 07/16, 08/06/2021, Additional history exists RETIRED - COLONOSCOPY-EVERY 2 YRS AGES 18-100 Discontinued 10/31/2021, 10/31/2021 HPV (Gardasil) Vaccine Aged Out No lo nger eligible based on patient's age to complete this topic Hepatitis B Vaccine Aged Out No longe r eligible based on patient's age to complete this topic MENINGOCOCCAL (MENACTRA/MENVEO) Aged Out No longer eligible based on patient's age to complete this topic documented as of this encounter Medical Devices Not on filedocumented as of this encounter Visit Diagnoses Diagnosis Type 2 diabetes mellitus with hemoglobin A1c goal of less than 7.0% (HCC) Encounter for long-term (current) use of medications Encounter for long-term (current) use of other medications documented in this encounter
--- OUTSIDE RECORDS SUMMARY | 2024-01-06 07:22 | External Medical Summary | Summary of Care ---
Author Name Unknown Organization [facility] Address [address] [facility] [place] [address] Phone [phone] Care Team Providers Care [employer] Fighter Name Role Phone Kelvin Joseph MD Primary Care Provide r Reason for Visit * Reason Comments Outpatient Testing Encounter Details Date Type Department Care Team (Late st Contact Info) Description 01/04/2024 11:40 AM EDT Laboratory Laboratory [address] [place] [phone] [place] [address] Arrived Allergies No known active allergiesdocumented as of this encounter (statuses as of 01/04/2024) Medications Medication Sig Dispensed Refills Start Date [...] morning. 100 Tablet 1 11/07/2021 Active Aspirin Buf(NrNqsr-LtRnmx-BtC ) 325 MG Oral Tablet Take by mouth 1 Tablet daily . 02/24/2022 Active Losartan Potassium 50 MG Oral Tablet (Cozaar)Indications:E ssential hypertension with goal blood pressure less than 140/90,Cardiac disease TAKE 1 TABLET BY MOUTH DAILY 90 Tablet 1 08/23/2023 Active Tamsulosin HCl 0.4 MG Oral Capsule (Flomax) Take 1 Capsule by mouth in the morning. 90 Capsule 1 10/22/2023 Active Carvedilol 12.5 MG Oral Tablet (Coreg)Indications:At herosclerosis of [place] coronary artery of [place] heart without angina pectoris,Essential hypertension with goal blood pressure less than 140/90,Cardiac disease TAKE 1 TABLET BY MOUTH TWICE DAILY WITH FOOD 180 Tablet 3 12/13/2023 Active Rosuvastatin Calcium 40 MG Oral Tablet (Crestor)Indications: Dyslipidemia, goal LDL below 70 TAKE 1 TABLET BY MOUTH IN THE MORNING 90 Tablet 3 12/13/2023 Active documented as of this encounter (statuses as of 01/04/2024) Active Problems Problem Noted Date Diagnosed Date BPH without obstruction/lower urinary tract symp toms 01/04/2024 Chronic kidney disease, stage 3a 05/24/2023 Overview: Per CKD protocol Primary hypertension 12/09/2015 Seborrheic keratosis 11/05/2011 DYSLIPIDEMIA, GOAL LDL BELOW 100 05/23/2009 Overview: Per Lipid Taxonomy. Osteoarthrosis Atherosclerosis of [place] co ronary artery of [place] heart without angina pectoris STAGE 1 DIASTOLIC DYSFUNCTION BMI 29.0-29.9,adult documented as of this encounter (statuses as of 01/04/2024) Resolved Problems Problem Noted Date Diagnosed Date Resolved Date Prediabetes 07/25/2018 01/04/2024 Overview: Per Prediabetes protocol #1 Encounter for surveillance of abnormal nevi 05/04/2016 12/23/2017 Overview: dysplastic nevus (L lower flank) AK (actinic keratosis) 02/28/201407/06 Hyperglycemia 05/09/2012 12/29/2018 Overview: glucose 180 Conjunctivitis 01/09/2010 11/14/2012 Benign neoplasm of colon 07/14/200701/2018 Mixed dyslipidemia 9 Overview: Per Lipid Taxonomy. History of colon polyps 05/14 HTN, goal below 140/90 12/16 documented as of this encounter (statuses as of 01/04/2024) Immunizations Name Administration Dates Next Due COVID-19 mRNA, LNP-s, No Pre serve, 2-Dose Series ([employer]) 03/25/2021,08/20/2020,07/30/2020 COVID-19, LNP-s, No Preserve , Sae-sucrose, Ages 12+ (Pfizer) 09/23/2021 COVID-19, MRNA-LNP, 23-24, P F, 30 MCG/0.3 mL, 12 YRS AND ABOVE, IM ([facility]) 03/18/2023 Covid-19, Mrna, Lnp-s, Pf, B ivalent, 30 Mcg, IM, 12 yrs and above ([employer]Registry) 04/14/2022 Pneumococcal Conjugate Vacc, 13 Valent (Prevnar) [...] Care Team (Late st Contact Info) Description 05/03/2024 2:00 PM EST Office Visit Cardiology, [facility] [address] [facility] [place] [address] Wen Woodson PA-C [address] [place] [address] [place] [phone] 09/11/2024 11:00 AM EDT Office Visit Dermatology [address] [place] [address] Kylah Basurto PA-C [address] [place] [address] [place] [phone] Scheduled Procedures Name Priority Associated Diagnoses Date/Ti me COLONOSCOPY FLEXIBLE PROXIMAL DIAGNOSTIC Recall History of colon polyps Health Maintenance Due Date Last Done Comments CKD PHOS USE SMARTSET 43130 1963 Depression Screening 07/18/2021 07/18/2020 CKD HGB USE SMARTSET 35085 06/02/202206/02, 06/02/2021, 11/22/2020, Additional history exists COVID-19 Vaccine (2022-24 season) 2023 03/18/2023, 04/14/2022, 09/23/2021, Additional history exists Colonoscopy 11/01/2023 10/31/2021, 10/31/2021 GFR 12/03/2023 06/03/2023, 04/14, 07/24/2022, Additional history exists Influenza Vaccine (FLU shot) (#1) 2024 02/19/2023, 02/24/2022, 03/21/2021, Additional history exists Albumin/Creatinine Ratio 12/20/2024 024, 07/24/2022, 07/15/2021, Additional history exists HbA1c 12/20/2024 12/21/2023, 07/15, 01/20/2022, Additional history exists DTaP,Tdap,and Td Vaccines (3 [...] Not on filedocumented as of this encounter Care Teams [employer] Fighter Relationship Specialty Start Date End Date Kelvin Joseph MD [address] [place] [address] [place] [phone] PCP - General Family Medicine 12/22/23 documented as of this encounter
--- OUTSIDE RECORDS SUMMARY | 2024-01-06 07:22 | External Medical Summary ---
Author Name Unknown Address Unknown Organization [id number]:[facility] [place] [facility] [place] [address] [place] [address] Laboratory Report Ordering Provider Test Date Status PAMELLA REYCharlie 01/04/2024 11:33:00 Елена l Observation Date Value Abnormality Reference (Units ) Status TSH 01/04/2024 11:33:00 0.77 0.27-4.20 (uIU/mL) Final Performing Location [facility] [place] [facility] [place] [address] [place] [address]
--- OUTSIDE RECORDS SUMMARY | 2024-01-06 07:22 | External Medical Summary ---
Author Name Unknown Address Unknown Organization [id number]:[facility] [place] [facility] [address] [facility] [place] [address] Laboratory Report Ordering Provider Test Date Status TRUDY MORENO 12/21/2023 10:00:37 Final Observation Date Value Abnormality Reference (Units ) Status Triglyceride 12/21/2023 10:00:37 149 <=174 ( mg/dL) Final Triglyceride Reference Range s (mg/dL):
<150 Acceptable
150-174 Borderline high
175-499 High
>=500 Very high Cholesterol 12/21/2023 10:00:37 60 <200 (mg /dL) Final Total Cholesterol Reference Ranges (mg/dL):
<200 Desirable
200-239 Borderline high
>=240 High HDL 12/21/2023 10:00:37 25 Below low normal >39 (mg/dL) Final HDL Cholesterol Reference Ra nges (mg/dL):
>=60 High (Desirable)
<50 Low (Undesirable) For Females
<40 Low (Undesirable) For Males NON-HDL CHOLESTEROL 12/21/2023 10:00:37 35 <=159 (mg/dL) Final Non-HDL Cholesterol Referenc e Range (mg/dL):
<100 Target level for high risk ASCVD patient
<130 Optimal for general population
130-159 Near optimal for general population
160-189 Borderline High
190-219 High
>=220 Very High LDL, (calculated) 12/21/2023 10:00:37 5 <= 129 (mg/dL) Final LDL Cholesterol Reference Ra nges (mg/dL):
<70 Target level for high risk ASCVD patient
<100 Optimal for general population
100-129 Near optimal for general population
130-159 Borderline high
160-189 High
>=190 Very high Performing Location LAB[facility]ATORY [facility] [place] - [address] [facility] [address]
--- OUTSIDE RECORDS SUMMARY | 2024-01-06 07:22 | External Medical Summary ---
Author Name Unknown Address Unknown Organization [id number]:[facility] [place] [facility] [address] [facility] [address] [place] [address] Laboratory Report Ordering Provider Test Date Status PRANAV REY 01/04/2024 11:33:00 Елена l Observation Date Value Abnormality Reference (Units ) Status BUN 01/04/2024 11:33:00 54 Above high normal 6-20 (mg/dL) Final Creatinine 01/04/2024 11:33:00 3.7 Above high normal 0.6-1.2 (mg/dL) Final Glomerular filtration rate/1.73 sq M.predicted [Volume Rate/Area] in Serum, Plasma or Blood by Creatinine-based formula (CKD-EPI) 01/04/2024 11:33:00 16 Below low normal >=60 (mL/min) Final eGFR is calculated based on the CKD-EPI 2020 equation. Sodium 01/04/2024 11:33:00 139 135-146 (m mol/L) Final Potassium 01/04/2024 11:33:00 4.1 3.5-5.1 (m mol/L) Final Cl 01/04/2024 11:33:00 104 98-107 (mm ol/L) Final CO2 01/04/2024 11:33:00 19 Below low normal 22- 32 (mmol/L) Final Anion gap 01/04/2024 11:33:00 16 Above high normal 7- 15 (mmol/L) Final Glucose 01/04/2024 11:33:00 117 70-120 (mg /dL) Final Calcium 01/04/2024 11:33:00 10.7 Above high normal 8. 4-10.2 (mg/dL) Final Performing Location [facility] [place] [facility] [address] [place] [address]
--- OUTSIDE RECORDS SUMMARY | 2024-01-06 07:22 | External Medical Summary ---
Author Name Unknown Address Unknown Organization [id number]:[place] [facility] [place] [facility] [address] [facility] [address] [place] [address] Laboratory Report Ordering Provider Test Date Status PRANAV REY 01/04/2024 11:33:00 Елена l Observation Date Value Abnormality Reference (Units ) Status WBC, Total 01/04/2024 11:33:00 8.78 4.00-10.80 (K/uL) Final RBC 01/04/2024 11:33:00 2.73 4.50-5.25 (M/uL) Final Hemoglobin 01/04/2024 11:33:00 8.4 Below low normal 14.0-16.8 (g/dL) Final HCT 01/04/2024 11:33:00 25.7 Below low normal 40.0-48.4 (%) Final MCV 01/04/2024 11:33:00 94.1 82.0-99.5 (fL) Final MCH 01/04/2024 11:33:00 30.8 27.0-34.0 (pg) Final MCHC 01/04/2024 11:33:00 32.7 32.0-36.0 (g/dL) Final RDW 01/04/2024 11:33:00 13.6 11.5-15.5 (%) Final Platelets 01/04/2024 11:33:00 322 140-400 (K/uL) Final MPV 01/04/2024 11:33:00 9.4 6.6-11.1 (fL) Final Nucleated erythrocytes/100 leukocytes [Ratio] in Blood by Automated count 01/04/2024 11:33:00 0 <=0 (/100 WBCs) Final Performing Location [facility] [place] - [address] [place] [address]
--- OUTSIDE RECORDS SUMMARY | 2024-01-06 07:22 | External Medical Summary | Summary of Care ---
Author Name Unknown Organization [facility] Address [address] [facility] [place] [address] Phone [phone] Care Team Providers Care Die Tripper Name Role Phone Unavailable Primary Care Provider Unavailabl e Reason for Visit * Reason Comments eRx-Medication Refill Encounter Details Date Type Department Care Team (Late st Contact Info) Description 12/10/2023 Refill Cardiology [address] [place] [phone] Xavi Rangel MD [address] [place] [address] Dyslipidemia, goal LDL below 70* Allergies No known active allergiesdocumented as of this encounter (statuses as of 12/13/2023) Medications Medication Sig Dispensed Refills Start Date [...] 06/02/2021 Active Vitamin B-12 1000 MCG Oral TabletIndications: Encounter for long-term (current) use of medications Take by mouth 1 Tablet in the morning. 100 Tablet 1 11/07/2021 Active Aspirin Buf(CaCarb-MgCarb- MgO) 325 MG Oral Tablet Take by mouth 1 Tablet daily . 02/24/2022 Active metFORMIN HCl 1000 MG Oral Tablet (Glucophage)Indica tions:Type 2 diabetes mellitus with hemoglobin A1c goal of less than 7.0% (HCC),Abnormal glucose,Hyperglyce endy TAKE 1 TABLET BY MOUTH TWICE DAILY WITH MORNING AND EVENING MEALS 180 Tablet 1 08/02/2023 Active Losartan Potassium 50 MG Oral Tablet (Cozaar)Indication s:Essential hypertension with goal blood pressure less than 140/90,Cardiac disease TAKE 1 TABLET BY MOUTH DAILY 90 Tablet 1 08/23/2023 Active Tamsulosin HCl 0.4 MG Oral Capsule (Flomax) Take 1 Capsule by mouth in the morning. 90 Capsule 1 10/22/2023 Active Carvedilol 12.5 MG Oral Tablet (Coreg)Indications :Atherosclerosis of [place] coronary artery of [place] heart without angina pectoris,Essential hypertension with goal blood pressure less than 140/90,Cardiac disease TAKE 1 TABLET BY MOUTH TWICE DAILY WITH FOOD 180 Tablet 3 12/13/2023 Active Rosuvastatin Calcium 40 MG Oral Tablet (Crestor)Indicatio ns:Dyslipidemia, goal LDL below 70 TAKE 1 TABLET BY MOUTH IN THE MORNING 90 Tablet 3 12/13/2023 Active Rosuvastatin Calcium 40 MG Oral Tablet (Crestor) TAKE 1 TABLET BY MOUTH IN THE MORNING 90 Tablet 3 01/11/2023 4 Discontinued documented as of this encounter (statuses as of 12/13/2023) Active Problems Problem Noted Date Diagnosed Date Chronic kidney disease, stage 3a 05/24/2023 Overview: Per CKD protocol Prediabetes 07/25/2018 Overview: Per Prediabetes protocol #1 Primary hypertension 12/09/2015 Seborrheic keratosis 11/05/2011 DYSLIPIDEMIA, GOAL LDL BELOW 100 05/23/2009 Overview: Per Lipid Taxonomy. Osteoarthrosis Atherosclerosis of [place] co ronary artery of [place] heart without angina pectoris STAGE 1 DIASTOLIC DYSFUNCTION BMI 29.0-29.9,adult documented as of this encounter (statuses as of 12/13/2023) Resolved Problems Problem Noted Date Diagnosed Date [...] as of this encounter (statuses as of 12/13/2023) Immunizations Name Administration Dates Next Due COVID-19 mRNA, LNP-s, No Pre serve, 2-Dose Series ([facility]) 03/25/2021,08/20/2020,07/30/2020 COVID-19, LNP-s, No Preserve , Sae-sucrose, Ages 12+ ([facility]) 09/23/2021 COVID-19, MRNA-LNP, 23-24, P F, 30 MCG/0.3 mL, 12 YRS AND ABOVE, IM ([facility] 03/18/2023 Covid-19, Mrna, Lnp-s, Pf, B ivalent, 30 Mcg, IM, 12 yrs and above ([facility]) 04/14/2022 Pneumococcal Conjugate Vacc, 13 Valent (Prevnar) [...] on file documented as of this encounter Miscellaneous Notes * Telephone Encounter - Claire Zuluaga LPN - 12/13/2023 11:38 AM EDT Pt informed via voicemail message of need to have labs. * Telephone Encounter - Stefanie Bray CRNP - 12/13/2023 11:34 AM EDTSigned Prescriptions: Disp Refills Rosuvastatin Calcium 40 MG Oral Tablet (Cr*90 Tab*3 Sig: TAKE 1 TABLET BY MOUTH IN THE MORNING Authorizing Provider: STEFANIE BRAY * Telephone Encounter - Stefanie Bray CRNP - 12/13/2023 11:34 AM EDT Needs lipid panel and LFTs. * Telephone Encounter - Callie Soler CMA - 12/13/2023 10:00 AM EDTPending Prescriptions: Disp Refills Rosuvastatin Calcium 40 MG Oral Tablet (Cr*90 Tab*3 Sig: TAKE 1 TABLET BY MOUTH IN THE MORNING * Telephone Encounter - Callie Soler CMA - 12/13/2023 10:00 AM EDT Did you pend patient's preferred pharmacy and medication before forwarding?yes Pharmacy: [facility] Pending Prescriptions: Disp Refills Rosuvastatin Calcium 40 MG Oral Tablet (C*90 Tab*3 Sig: TAKE 1 TABLET BY MOUTH IN THE MORNING Last Visit: 02/24/2022 (in office), Visit date not found (telemedicine) Next Visit: Visit date not found If no future appointments scheduled, and last appointment is greater than a year ago, please schedule patient for a follow-up appointment Last date the medication was ordered: 01-11-2023 Is this request for a controlled substance?No Urine Drug Screen:No results found for this or any previous visit. Patient Phone Numbers Labs: Lab Results Component Value Date/Time CREAT 1.5 (H) 06/03/2023 11:12 AM CREAT 1.17 09/06/2020 12:00 AM CREAT 0.9 07/11/2020 11:06 AM POTASSIUM 3.8 06/03/2023 11:12 AM POTASSIUM 4.0 09/06/2020 12:00 AM POTASSIUM 4.5 07/11/2020 11:06 AM LDLCALC 47 07/06/2019 10:43 AM LDLDIRECT 30 07/24/2022 12:06 PM LDLDIRECT 58 07/11/2020 11:06 AM LDLDIRECT 81 02/25/2009 10:46 AM ALT 16 07/24/2022 12:06 PM ALT 21 12/07/2017 04:15 PM HGBA1C 6.6 (H) 07/24/2022 12:06 PM HGBA1C 6.1 (H) 07/11/2020 11:06 AM documented in this encounter Plan of Treatment Upcoming Encounters Date Type Department Care Team (Late st Contact Info) Description 01/04/2024 11:00 AM EDT Office Visit Family Medicine [address] [place] [phone] Kelvin Joseph MD [address] [place] [address] [place] [phone] 05/03/2024 2:00 PM EST Office Visit Cardiology, [facility] [address] [facility] [place] [address] Wen Woodson PA-C [address] [place] [address] [place] [address] 09/11/2024 11:00 AM EDT Office Visit Dermatology [address] [place] [address] Kylah Basurto PA-C [address] [place] [address] [place] [address] Scheduled Procedures Name Priority Associated Diagnoses Date/Ti me COLONOSCOPY FLEXIBLE PROXIMAL DIAGNOSTIC Recall History of colon polyps Health Maintenance Due Date Last Done Comments CKD PHOS USE SMARTSET 88742 1965 Depression Screening 07/18/2021 07/18/2020 CKD HGB USE SMARTSET 37679 06/02/202206/02, 06/02/2021, 11/22/2020, Additional history exists B-12 01/20/2023 01/20/2022, 06/2021, 07/11/2020, Additional history exists COVID-19 Vaccine (2022- season) 2023 03/18/2023, 04/14/2022, 09/23/2021, Additional history exists Albumin/Creatinine Ratio 07/24/2023 023, 07/15/2021, 07/11/2020, Additional history exists HbA1c 07/24/2023 07/24/2022, 02/2022, 07/15/2021, Additional history exists Colonoscopy 11/01/2023 [...] 2 YRS AGES 18-100 Discontinued 10/31/2021, 10/31/2021 GARDASIL-HPV IMMUNIZATION SERIES Aged Out No longer eligible based on patient's age to complete this topic Hepatitis B Aged Out No longer eligi ble based on patient's age to complete this topic MENINGOCOCCAL (MENACTRA/MENVEO) Aged Out No longer eligible based on patient's age to complete this topic documented as of this encounter Medical Devices Not on filedocumented as of this encounter Visit Diagnoses Diagnosis Dyslipidemia, goal LDL below 70- Primary Other and unspecified hyperlipidemia documented in this encounter
--- OUTSIDE RECORDS SUMMARY | 2024-01-06 07:22 | External Medical Summary | Summary of Care ---
Author Name Unknown Organization [facility] Address [address] [facility] [place] [address] Phone [phone] Care Team Providers Care Events Traffic Controller Name Role Phone Unavailable Primary Care Provider Unavailabl e Reason for Visit * Reason Comments eRx-Medication Refill Encounter Details Date Type Department Care Team (Late st Contact Info) Description 12/10/2023 Refill Cardiology [address] [place] [address] Xavi Rangel MD [address] [place] [address] Dyslipidemia, goal LDL below 70* Allergies No [...] 12.5 MG Oral Tablet (Coreg)Indications :Atherosclerosis of [place] coronary artery of [place] heart without angina pectoris,Essential hypertension with goal [...] Overview: Per Lipid Taxonomy. Osteoarthrosis Atherosclerosis of [place] co ronary artery of [place] heart without angina pectoris STAGE 1 DIASTOLIC [...] mRNA, LNP-s, No Pre serve, 2-Dose Series ([employer]) 03/25/2021,08/20/2020,07/30/2020 COVID-19, LNP-s, No Preserve , Sae-sucrose, Ages 12+ ([employer]) 09/23/2021 COVID-19, MRNA-LNP, 23-24, P F, 30 MCG/0.3 mL, 12 YRS AND ABOVE, IM [facility] 03/18/2023 Covid-19, Mrna, Lnp-s, Pf, B ivalent, 30 Mcg, IM, 12 yrs and above ([employer]) 04/14/2022 Pneumococcal Conjugate Vacc, 13 Valent (Prevnar) [...] pharmacy and medication before forwarding?yes Pharmacy: [facility] Pending Prescriptions: Disp Refills Rosuvastatin Calcium [...] 11:00 AM EDT Office Visit Family Medicine [address] [place] [address] Kelvin Joseph MD [address] [place] [address] [place] [address] 05/03/2024 2:00 PM EST Office Visit Cardiology, [facility] [address] [facility] [place] [address] Wen Woodson PA-C [address] [place] [address] [place] [address] 09/11/2024 11:00 AM EDT Office Visit Dermatology [address] [place] [address] Kylah Basurto PA-C [address] [place] [address] [place] [address] Scheduled Procedures Name Priority Associated Diagnoses Date/Ti me COLONOSCOPY FLEXIBLE PROXIMAL DIAGNOSTIC Recall History of colon polyps Health Maintenance Due Date Last Done Comments CKD PHOS USE SMARTSET 14051 1963 Depression Screening 07/18/2021 07/18/2020 CKD HGB USE SMARTSET 30190 06/02/202206/02, 06/02/2021, 11/22/2020, Additional history exists B-12 [...]
--- OUTSIDE RECORDS SUMMARY | 2024-01-06 07:22 | External Medical Summary ---
Author Name Unknown Address Unknown Organization K01:[facility] [place] [address] [facility] [address] Laboratory Report Ordering Provider Test Date Status TRUDY MORENO 12/21/2023 10:00:37 Final Observation Date Value Abnormality Reference (Units ) Status HbA1C 12/21/2023 10:00:37 5.6 4.0-5.6 (% ) Final The use of HbA1c to monitor glycemic status is based on normal hemoglobin and HbA composition. This test should not be used in patients with abnormal hemoglobin that affects the half life of the red blood cell or the in vivo glycation rates. Glucose, estimated average 12/21/2023 10:00:37 114 <126 (mg/dL) Final Performing Location [facility] [place] [facility] [address] [facility] [address]
--- OUTSIDE RECORDS SUMMARY | 2024-01-06 07:22 | External Medical Summary | Summary of Care ---
Author Name Unknown Organization [facility] Address [address] [facility] [place] [address] Phone [phone] Care Team Providers Care Inside Sales Advisor Name Role Phone Unavailable Primary Care Provider Unavailabl e Reason for Visit * Reason Onset Date Comments Advice 09/21/2023 Encounter Details Date Type Department Care Team (Late st Contact Info) Description 09/21/2023 Telephone Cardiology, [facility] [address] [place] [phone] Xavi Rangel MD [address] [place] [phone] Advice Allergies No known active allergiesdocumented as of this encounter (statuses as of 09/23/2023) Medications Medication Sig Dispensed Refills Start Date End Date Status OSTEO BI-FLEX ADV TRIPLE ST PO TABS Take by mouth 1 Tablet 2 times a day . 0 Active OMEGA-3 FATTY ACIDS 1200 MG PO CAPS Fish oil 0 Active Saccharomyces boulardii (PROBIOTIC) 250 MG CAPS Take by mouth 2 times a day . 0 01/31/2019 Active Clopidogrel Bisulfate 75 MG Oral Tablet (pLAVix) Take 1 Tablet by mouth in the morning. 0 06/02/2021 Active Vitamin B-12 1000 MCG Oral TabletIndications:Enc ounter for long-term (current) use of medications Take by mouth 1 Tablet in the morning. 100 Tablet 1 11/07/2021 Active Aspirin Buf(NrLbvv-AgDfuf-UlH ) 325 MG Oral Tablet Take by mouth 1 Tablet daily . 0 02/24/2022 Active Carvedilol 12.5 MG Oral Tablet (Coreg)Indications:At herosclerosis of [place] coronary artery of [place] heart without angina pectoris,Essential hypertension with goal blood pressure less than 140/90,Cardiac disease TAKE 1 TABLET BY MOUTH TWICE DAILY WITH FOOD 180 Tablet 3 01/08/2023 Active Rosuvastatin Calcium 40 MG Oral Tablet (Crestor) TAKE 1 TABLET BY MOUTH IN THE MORNING 90 Tablet 3 01/11/2023 Active metFORMIN HCl 1000 MG Oral Tablet [...] mouth in the morning. 90 Capsule 1 08/23/2023 Active documented as of this encounter (statuses as of 09/23/2023) Active Problems Problem Noted Date Diagnosed Date Chronic kidney disease, stage 3a 05/24/2023 Overview: Per CKD protocol Prediabetes 07/25/2018 Overview: Per Prediabetes protocol #1 Primary hypertension 12/09/2015 Seborrheic keratosis 11/05/2011 DYSLIPIDEMIA, GOAL LDL BELOW 100 05/23/2009 Overview: Per Lipid Taxonomy. Osteoarthrosis Atherosclerosis of [place] co ronary artery of [place] heart without angina pectoris STAGE 1 DIASTOLIC DYSFUNCTION BMI 29.0-29.9,adult documented as of this encounter (statuses as of 09/23/2023) Resolved Problems Problem Noted Date Diagnosed Date [...] as of this encounter (statuses as of 09/23/2023) Immunizations Name Administration Dates Next Due COVID-19 mRNA, LNP-s, No Pre serve, 2-Dose Series ([facility]) 03/25/2021,08/20/2020,07/30/2020 COVID-19, LNP-s, No Preserve , Sae-sucrose, Ages 12+ ([facility]) 09/23/2021 COVID-19, MRNA-LNP, 23-24, P F, 30 MCG/0.3 mL, 12 YRS AND ABOVE, IM ([facility]) 03/18/2023 Covid-19, Mrna, Lnp-s, Pf, B ivalent, 30 Mcg, IM, 12 yrs and above ([facility]) 04/14/2022 Pneumococcal Conjugate Vacc, 13 Valent (Prevnar) [...] 06/15/2003 TDAP (age 10 and older)(Boostrix) 10/04/2015 TDAP (age 11 and older)(Adacel) 11/05/2011 Varicella Zoster Vaccine (Adult) 12/14/2011 Zoster [...] in the Last Year Never true 12/29/2018 Sex and Gender Information Value Date Recorded Sex Assigned at Not on file Gender Identity Not on file Sexual Orientation Straight 07/18/2020 11 :10 AM EST Job Start Date Occupation Industry Not on file Not on file Not on file documented as of this encounter Miscellaneous Notes * Telephone Encounter - Tyler Heart RN - 09/23/2023 2:10 PM EDT Called and spoke tot he patient and and reviewed the message wit him from Dr. Rangel. He state he has an appointment with a new PCP in December 2023. * Telephone Encounter - Xavi Rangel MD - 09/23/2023 9:37 AM EDT Renal function has changed since last prescribed. Would not routinely prescribed without close clinical follow-up. Patient needs to establish with primary care physician * Telephone Encounter - Whit Aguilar CMA - 09/22/2023 10:[address] Rangel has not prescribed Meloxicam since 2018. Patient has no PCP listed. Please advise if Meloxicam therapy is appropriate and if you are willing to prescribe. * Telephone Encounter - Madonna Murdock OSA - 09/21/2023 11:20 AM EDT Person calling: Pt Number to return call: [phone] Reason for call: Pt calling in. He was previously prescribed Meloxicam by Dr. Rangel for his arthritis pain. Pt is asking if Dr. Rangel would be willing to re prescribe him the medication again for his pain. Pharmacy: [facility] - mail order pharmacy Provider Name: Dr. Rangel Please advise. Thank you. documented in this encounter Plan of Treatment Upcoming Encounters Date Type Department Care Team (Late st Contact Info) Description 01/04/2024 11:00 AM EDT Office Visit Family Medicine [address] [place] [phone] Kelvin Joseph MD [address] [place] [address] [place] [address] 05/03/2024 2:00 PM EST Office Visit Cardiology, [facility] [address] [facility] [place] [address] Wen Woodson PA-C [address] [place] [address] [place] [phone] 09/11/2024 11:00 AM EDT Office Visit Dermatology [address] [place] [address] Kylah Basurto PA-C [address] [place] [address] [place] [address] Scheduled Procedures Name Priority Associated Diagnoses Date/Ti me COLONOSCOPY FLEXIBLE PROXIMAL DIAGNOSTIC Recall History of colon polyps Health Maintenance Due Date Last Done Comments CKD PHOS USE SMARTSET 93851 1963 Depression Screening 07/18/2021 07/18/2020 CKD HGB USE SMARTSET 69857 06/02/202206/02, 06/02/2021, 11/22/2020, Additional history exists B-12 01/20/2023 01/20/2022, 0206/2021, 07/11/2020, Additional history exists Albumin/Creatinine Ratio 07/24/2023 023, 07/15/2021, 07/11/2020, Additional history exists HbA1c 07/24/2023 07/24/2022, 08/0 02/2022, 07/15/2021, Additional history exists COLONOSCOPY-EVERY 2 YRS AGES 18-100 11/01/2023 10/31/2021, 10/31/2021 GFR 12/03/2023 06/03/2023, 04/14, 07/24/2022, Additional history exists DTaP,Tdap,and Td Vaccines (3 - Td or Tdap) 10/03/2025 10/04/2015, 11/05/2011, 06/15/2003 Pneumococcal Vaccine: 65+ Years Completed 11/19/2014, 05/19/2013, 01/12/2008 Zoster Vaccines Completed 07/11/2020, 02/13, 12/14/2011 Cologuard Discontinued 08/13/2021, 07/16, 08/06/2021, Additional history exists Colonoscopy Discontinued 10/31/2021, 10/31/2021 Colorectal Cancer Screening Discontinued Influenza Vaccine (FLU shot) Completed 02/19/2023, 02/24/2022, 03/21/2021, Additional history exists COVID-19 Vaccine Completed 03/18/2023, 06/2021, 09/23/2021, Additional history exists Fecal Occult Blood Test Discontinued GARDASIL-HPV IMMUNIZATION SERIES Aged Out No longer eligible based on patient's age to complete this topic Hepatitis B Aged Out No longer eligi ble based on patient's age to complete this topic MENINGOCOCCAL (MENACTRA/MENVEO) Aged Out No longer eligible based on patient's age to complete this topic Sigmoidoscopy Discontinued documented as of this encounter Medical Devices Not on filedocumented as of this encounter
--- OUTSIDE RECORDS SUMMARY | 2024-01-06 07:22 | External Medical Summary ---
Author Name Unknown Address Unknown Organization K01:[facility] [place] [address] [facility] [address] Laboratory Report Ordering Provider Test Date Status PRANAV REY 01/04/2024 11:33:00 Леена l Observation Date Value Abnormality Reference (Units ) Status SYNC LEUKOCYTES IN BLOOD BY AUTOMATED COUNT 01/04/2024 11:33:00 8.78 4.00-10.80 (K/uL) Final Segs 01/04/2024 11:33:00 76.8 Above high normal 40.0-75.0 (%) Final Lymphs % 01/04/2024 11:33:00 13.0 Below low normal 18.0-42.0 (%) Final Monos 01/04/2024 11:33:00 6.7 1.0-11.0 (%) Final Eosinophils 01/04/2024 11:33:00 2.1 0.0-6.0 (%) Final Basos 01/04/2024 11:33:00 0.6 0.0-2.0 (%) Final Immature Granulocyte, Percent 01/04/2024 11:33:00 0.8 0.0-2.0 (%) Final Absolute Segs 01/04/2024 11:33:00 6.75 1.80-7.70 (K/uL) Final Lymphs, absolute 01/04/2024 11:33:00 1.14 1.00-4.80 (K/ul) Final Monos, Abs 01/04/2024 11:33:00 0.59 0.00-1.10 (K/uL) Final Eos, Abs 01/04/2024 11:33:00 0.18 0.00-0.70 (K/uL) Final Basos, Abs 01/04/2024 11:33:00 0.05 0.00-0.20 (K/uL) Final Immature Granulocytes, Number 01/04/2024 11:33:00 0.07 0.00-0.20 (K/uL) Final Performing Location [facility] [place] - [facility] [place] [address] [facility] [address]
--- OUTSIDE RECORDS SUMMARY | 2024-01-06 07:22 | External Medical Summary | Summary of Care ---
Author Name Unknown Organization [facility] Address [address] [facility] [place] [address] Phone [phone] Care Team Providers Care Gas Plant Repairer Name Role Phone Unavailable Primary Care Provider Unavailabl e Reason for Visit * Reason Comments eRx-Medication Refill Encounter Details Date Type Department Care Team (Late st Contact Info) Description 12/10/2023 Refill Family Medicine [address] [place] [phone] Zachary Chambers MD [address] [place] [address] [place] [address] Atherosclerosis of nondalton coronary artery of nondalton heart without angina pectoris; Essential hypertension with goal blood pressure less than 140/90; STAGE 1 DIASTOLIC DYSFUNCTION Allergies No known active allergiesdocumented as of [...] mouth 1 Tablet daily . 02/24/2022 Active Rosuvastatin Calcium 40 MG Oral Tablet [...] 12.5 MG Oral Tablet (Coreg)Indications :Atherosclerosis of nondalton coronary artery of nondalton heart without angina pectoris,Essential hypertension with goal blood pressure less than 140/90,Cardiac disease TAKE 1 TABLET BY MOUTH TWICE DAILY WITH FOOD 180 Tablet 3 12/13/2023 Active Carvedilol 12.5 MG Oral Tablet (Coreg)Indications :Atherosclerosis of nondalton coronary artery of nondalton heart without angina pectoris,Essential hypertension with goal blood pressure less than 140/90,Cardiac disease TAKE 1 TABLET BY MOUTH TWICE DAILY WITH FOOD 180 Tablet 3 01/08/2023 4 Discontinued documented as of this encounter (statuses as of 12/13/2023) Active Problems Problem Noted Date Diagnosed Date Chronic kidney disease, stage 3a 05/24/2023 Overview: Per CKD protocol Prediabetes 07/25/2018 Overview: Per Prediabetes protocol #1 Primary hypertension 12/09/2015 Seborrheic keratosis 11/05/2011 DYSLIPIDEMIA, GOAL LDL BELOW 100 05/23/2009 Overview: Per Lipid Taxonomy. Osteoarthrosis Atherosclerosis of nondalton co ronary artery of nondalton heart without angina pectoris STAGE 1 DIASTOLIC [...] mRNA, LNP-s, No Pre serve, 2-Dose Series ([employer]) 03/25/2021,08/20/2020,07/30/2020 COVID-19, LNP-s, No Preserve , Sae-sucrose, Ages 12+ ([employer]) 09/23/2021 COVID-19, MRNA-LNP, 23-24, P F, 30 MCG/0.3 mL, 12 YRS AND ABOVE, IM ([facility]) 03/18/2023 Covid-19, Mrna, Lnp-s, Pf, B ivalent, 30 Mcg, IM, 12 yrs and above ([employer]) 04/14/2022 Pneumococcal Conjugate Vacc, 13 Valent (Prevnar) [...] encounter Miscellaneous Notes * Telephone Encounter - Cecilia Brooke PA-C - 12/13/2023 8:07 AM EDTSigned Prescriptions: Disp Refills Carvedilol 12.5 MG Oral Tablet (Coreg) 180 Ta*3 Sig: TAKE 1 TABLET BY MOUTH TWICE DAILY WITH FOOD Authorizing Provider: CECILIA BROOKE * Telephone Encounter - Lars Moran [facility] [place] [facility] - 12/12/2023 7:40 AM EDT Pending Prescriptions: Disp Refills Carvedilol 12.5 MG Oral Tablet 180 Ta*3 Sig: TAKE 1 TABLET BY MOUTH TWICE DAILY WITH FOOD * Telephone Encounter - Lars Moran [facility] - 12/12/2023 7:28 AM EDT Patient has no PCP under whom to authorize refills. Please approve if appropriate. Thanks, Lars Moran, PharmD Clinical Pharmacist [facility] [phone] 12/12/2023, 7:28 AM documented in this encounter Plan of Treatment Upcoming Encounters Date Type Department Care Team (Late st Contact Info) Description 01/04/2024 11:00 AM EDT Office Visit Family Medicine [address] [place] [phone] Kelvin Joseph MD [address] [place] [address] [place] [address] 05/03/2024 2:00 PM EST Office Visit Cardiology, [facility] [address] [place] [address] Wen Woodson PA-C [address] [place] [address] 09/11/2024 11:00 AM EDT Office Visit Dermatology [address] [place] [address] Kylah Basurto PA-C [address] [place] [place] [address] [place] [phone] Scheduled Procedures Name Priority Associated Diagnoses Date/Ti me COLONOSCOPY FLEXIBLE PROXIMAL DIAGNOSTIC Recall History of colon polyps Health Maintenance Due Date Last Done Comments CKD PHOS USE SMARTSET 02447 1963 Depression Screening 07/18/2021 07/18/2020 CKD HGB USE SMARTSET 33633 06/02/202206/02, 06/02/2021, 11/22/2020, Additional history exists B-12 01/20/2023 01/20/2022, 0206/2021, 07/11/2020, Additional history exists COVID-19 Vaccine (2022- season) 2023 03/18/2023, 04/14/2022, 09/23/2021, Additional history exists Albumin/Creatinine Ratio 07/24/20232 023, 07/15/2021, 07/11/2020, Additional history exists HbA1c [...] 2 YRS AGES 18-100 Discontinued 10/31/2021, 10/31/2021 Influenza Vaccine (FLU shot) Completed 02/19/2023, 02/24/2022, 03/21/2021, Additional history exists GARDASIL-HPV IMMUNIZATION SERIES Aged Out No longer [...] as of this encounter Visit Diagnoses Diagnosis Atherosclerosis of nondalton coronary artery of nondalton heart without angina pectoris Essential hypertension with goal blood pressure less than 140/90 STAGE 1 DIASTOLIC DYSFUNCTION Heart disease, unspecified documented in this encounter
--- OUTSIDE RECORDS SUMMARY | 2024-01-06 07:22 | External Medical Summary | Summary of Care ---
Author Name Unknown Organization [facility] Address [address] [facility] [place] [address] Phone [phone] Care Team Providers Care Merchant Tailor Name Role Phone Kelvin Joseph MD Primary Care Provide r Reason for Visit * Reason Comments NEW PATIENT Encounter Details Date Type Department Care Team (Late st Contact Info) Description 01/04/2024 11:00 AM EDT Office Visit Family Medicine [address] [phone] Kelvin Joseph MD [address] [place] [address] [place] [address] Type 2 diabetes mellitus with hemoglobin A1c goal of less than 7.0% ([facility])*; Chronic kidney disease, stage 3a ([facility]); Loss of weight; HTN, goal below 140/90; BPH without obstruction/lower urinary tract symptoms Allergies No known active allergiesdocumented as of [...] 12.5 MG Oral Tablet (Coreg)Indications :Atherosclerosis of cahu[place] coronary artery of [place]ahu[place] heart without angina pectoris,Essential hypertension with goal blood pressure less than 140/90,Cardiac disease TAKE 1 TABLET BY MOUTH TWICE DAILY WITH FOOD 180 Tablet 3 12/13/2023 Active Rosuvastatin Calcium 40 MG Oral Tablet (Crestor)Indicatio ns:Dyslipidemia, goal LDL below 70 TAKE 1 TABLET BY MOUTH IN THE MORNING 90 Tablet 3 12/13/2023 Active metFORMIN HCl 1000 MG Oral Tablet (Glucophage)Indica tions:Type 2 diabetes mellitus with hemoglobin A1c goal of less than 7.0% (HCC),Abnormal glucose,Hyperglyce endy TAKE 1 TABLET BY MOUTH TWICE DAILY WITH MORNING AND EVENING MEALS 180 Tablet 1 12/22/2023 01/04/2024 Discontinued (Medication List Clean Up) documented as of this encounter (statuses as of 01/04/2024) Active Problems Problem Noted Date Diagnosed Date BPH without obstruction/lower urinary tract symp toms 01/04/2024 Chronic kidney disease, stage 3a 05/24/2023 Overview: Per CKD protocol Primary hypertension 12/09/2015 Seborrheic keratosis 11/05/2011 DYSLIPIDEMIA, GOAL LDL BELOW 100 05/23/2009 Overview: Per Lipid Taxonomy. Osteoarthrosis Atherosclerosis of cahu[place] co ronary artery of cahu[place] heart without angina pectoris STAGE 1 DIASTOLIC [...] mRNA, LNP-s, No Pre serve, 2-Dose Series ([employer]) 03/25/2021,08/20/2020,07/30/2020 COVID-19, LNP-s, No Preserve , Sae-sucrose, Ages 12+ ([employer]) 09/23/2021 COVID-19, MRNA-LNP, 23-24, P F, 30 MCG/0.3 mL, 12 YRS AND ABOVE, IM ([facility]) 03/18/2023 Covid-19, Mrna, Lnp-s, Pf, B ivalent, 30 Mcg, IM, 12 yrs and above ([employer]) 04/14/2022 Pneumococcal Conjugate Vacc, 13 Valent (Prevnar) [...] 06/14/1967 - 06/14/1997 Smokeless Tobacco: Current Snuff Tobacco Cessation:Ready to Q uit: Not Asked; Counseling Given: Not Answered Comments:smoked 3 packs per day x 30 [...] on file documented as of this encounter Last Filed Vital Signs Vital Sign Reading Time Taken Comments Blood Pressure 110/58 01/04/2024 10:50 AM EDT Pulse 87 01/04/2024 10:50 AM EDT Temperature 36.4 C (97.6 F) 01/04/2024 10:50 AM E DT Respiratory Rate 16 01/04/2024 10:50 AM EDT Oxygen Saturation 98% 01/04/2024 10:50 AM EDT Inhaled Oxygen Concentration - - Weight 68 kg (150 lb) 01/04/2024 10:50 AM EDT Height 170.2 cm (5' 7") 01/04/2024 10:50 AM EDT Body Mass Index 23.49 01/04/2024 10:50 AM EDT documented in this encounter Progress Notes * Kelvin Joseph MD - 01/04/2024 11:07 AM EDT Subjective: HPI: Meghan Todd is a 78 year old male with hx of DMII, CAD, Carotid stenosis s/p R endarterectomy and stent, HTN, HLD, CKD III seen for DMII: - on Metformin 1000mg BID - recent A1C was 5.6 - pt has been eating less red meat and carbs - pt is losing weight with it - A1C prior to that was 6.6 - denied any night sweats and bloody or black stool HTN: -on coreg 12.5mg BID, Losartan 50mg daily HLD: - on crestor 40mg daily CAD: - on plavix, crestor and aspirin 325mg -- per pt vascular doctor is okay with DAPT - denied any SE BPH: - on flomax Patient Active Problem List Diagnosis Osteoarthrosis Atherosclerosis of cahuilla coronary artery of cahuilla heart without angina pectoris DYSLIPIDEMIA, GOAL LDL BELOW 100 STAGE 1 DIASTOLIC DYSFUNCTION BMI 29.0-29.9,adult Seborrheic keratosis Primary hypertension Chronic kidney disease, stage 3a (HCC) BPH without obstruction/lower urinary tract symptoms Current Outpatient Medications Medication Sig Dispense Refill OSTEO BI-FLEX ADV TRIPLE ST PO TABS Take by mouth 1 Tablet 2 times a day . OMEGA-3 FATTY ACIDS 1200 MG PO CAPS Fish oil Saccharomyces boulardii (PROBIOTIC) 250 MG CAPS Take by mouth 2 times a day . Clopidogrel Bisulfate 75 MG Oral Tablet (pLAVix) Take 1 Tablet by mouth in the morning. Vitamin B-12 1000 MCG Oral Tablet Take by mouth 1 Tablet in the morning. 100 Tablet 1 Aspirin Buf(HwTdey-RoMrak-OzQ) 325 MG Oral Tablet Take by mouth 1 Tablet daily . Losartan Potassium 50 MG Oral Tablet (Cozaar) TAKE 1 TABLET BY MOUTH DAILY 90 Tablet 1 Tamsulosin HCl 0.4 MG Oral Capsule (Flomax) Take 1 Capsule by mouth in the morning. 90 Capsule 1 Carvedilol 12.5 MG Oral Tablet (Coreg) TAKE 1 TABLET BY MOUTH TWICE DAILY WITH FOOD 180 Tablet 3 Rosuvastatin Calcium 40 MG Oral Tablet (Crestor) TAKE 1 TABLET BY MOUTH IN THE MORNING 90 Tablet 3 No current facility-administered medications for this visit. 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 Coronary atherosclerosis of cahuilla coronary artery Encounter for surveillance of abnormal nevi 04/19/2017 HTN, goal below 140/90 Mixed dyslipidemia Need for hepatitis C screening test 11/13/13 Hepatitis C negative Osteoarthrosis Other abnormal glucose 05/09/12 glucose 180 Other seborrheic keratosis 11/05/11 back on lower left Personal history of colonic polyps 2006 S/P angioplasty with stent Right Carotid 1999 S/P carotid endarterectomy Right side only 1998 STAGE 1 DIASTOLIC DYSFUNCTION Past Surgical History: Procedure Laterality Date COLOGUARD 01/18/2018 negative COLOGUARD 08/06/2021 positive COLONOSCOPY 2006 [place] COLONOSCOPY, DIAGNOSTIC (RECTUM) 10/31/2021 8 mm polyp cecum, 4 mm descending, 6 mm sigmoid, performed by Rufina Fernandes MD at ENDOSCOPY [facility] COLONOSCOPY, SURGICAL 11/01/2007 normal [place], Dr Cancino CT ABD/PELVIS W IV CONTRAST - WO ORAL CONTRAST 07/31/2014 normal except short segment dissection left common iliac, degenerative changes spine CT ABD/PELVIS WO IV CONTRAST - W ORAL CONTRAST 04/11/2014 tiny right ureteral calculus with mild right hydronephrosis, mod coronary artery calcification, enlarged proatate, diverticulosis, chronic 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 minor degenerative changes cartilage US ABDOMEN COMPLETE 12/24/2017 normal US RENAL 04/19/2015 normal VASC ANKLE BRACHIAL INDEX 03/20/2009 normal VASC ANKLE BRACHIAL INDEX VASC DUPLEX CAROTID BILAT 03/20/2009 elevated velocities at origin of right carotid stent, progressed since last visit, left stable 50-69% stenosis VASC DUPLEX CAROTID BILAT 09/18/2009 50-69% LICA right carotid stent without stenosis VASC DUPLEX CAROTID BILAT 03/30/2012 50-69% LICA stenosis, right carotid stent patent Review of patient's allergies indicates: No Known Allergies Family History Problem Relation Name Age of Onset Diabetes Mother Heart Disorder Mother Heart Disorder Father Social History Tobacco Use Smoking status: Former Current packs/day: 0.00 Average packs/day: 3.0 packs/day for 30.0 years (90.0 ttl pk-yrs) Types: Cigarettes Start date: 06/14/1967 Quit date: 06/14/1997 Years since quittin.5 Smokeless tobacco: Current Types: Snuff Tobacco comments: smoked 3 packs per day x 30 Substance Use Topics Alcohol use: Yes Comment: a couple gin and tonics a week Vaping/E-Cigarette Use Vaping/E-Cigarette Use Never User Vaping/E-Cigarette Substances Vaping/E-Cigarette Devices ROS: -Per HPI OBJECTIVE: BP 110/58 | Pulse 87 | Temp 36.4 C (97.6 F) (Tympanic) | Resp 16 | Ht 1.702 m (5' 7") | Wt 68 kg (150 lb) | SpO2 98% | BMI 23.49 kg/m | BSA 1.79 m PHYSICAL EXAM: Vitals are reviewed General:. NAD, well developed HEENT:. Normal Conjunctiva, EOMI Cardiac:.systolic murmur, Normal S1, S2 Lungs:. CTA, no wheezing or crackles MSK:. Normal gait Psych:. AAOx3, normal affect ASSESSMENT/PLAN: VSS and Normal PE I suspect pt's weight loss is 2/2 change in diet - no red flag on hx or exam - labs today Stopped the metformin due to significant improvement of A1C - repeat A1C in 3 months Advised the pt to increase his water intake Continue flomax Type 2 diabetes mellitus with hemoglobin A1c goal of less than 7.0% ([facility]) (Primary) - HEMOGLOBIN A1C; Future; Expected date: 04/05/2024 Chronic kidney disease, stage 3a (HCC) - BASIC METABOLIC PANEL Loss of weight - TSH WITH FREE T4 IF INDICATED - CBC WITH WBC DIFFERENTIAL HTN, goal below 140/90 BPH without obstruction/lower urinary tract symptoms Follow Up: Return in about 6 months (around 07/06/2024). Kelvin Joseph MD Family medicine, [address] [address] documented in this encounter Nursing Notes * Maria Elena Owen LPN - 01/04/2024 10:[address] Chambers Had Meloxicam in past. Would like to restart for arthritis. Currently takes OTC aleve and tylenol. Weight loss Lower leg cramps. Lightheadedness Depression symptoms Overall weakness Discuss lipids. documented in this encounter Plan of Treatment Upcoming Encounters Date Type Department Care Team (Late st Contact Info) Description 05/03/2024 2:00 PM EST Office Visit Cardiology, [facility] [address] [facility] [place] [phone] Wen Woodson PA-C [address] [place] [phone] 09/11/2024 11:00 AM EDT Office Visit Dermatology [address] [place] [address] Kylah Basurto PA-C [address] [place] [address] [place] [phone] Pending Results Name Type Priority Associated Diagnoses Date /Time BASIC METABOLIC PANEL Lab Routine Chronic kidney disease, stage 3a (HCC) 01/04/2024 11:33 AM EDT TSH WITH FREE T4 IF INDICATED Lab Routine Loss of weight 01/04/2024 11:33 AM EDT CBC WITH WBC DIFFERENTIAL Lab Routine Loss of weight 01/04/2024 11:33 AM EDT CBC Lab Routine Loss of weight 01/04/2024 11:33 AM EDT DIFFERENTIAL, AUTOMATED Lab Routine Loss of weight 01/04/2024 11:33 AM EDT Scheduled Orders Name Type Priority Associated Diagnoses Orde r Schedule HEMOGLOBIN A1C Lab Routine Type 2 diabetes mellitus with hemoglobin A1c goal of less than 7.0% (HCC) Expected: 04/05/2024, Expires: 01/03/2025 Scheduled Procedures Name Priority Associated Diagnoses Date/Ti me COLONOSCOPY FLEXIBLE PROXIMAL DIAGNOSTIC Recall History of colon polyps Health Maintenance Due Date Last Done Comments CKD PHOS USE SMARTSET 65693 1965 Depression Screening 07/18/2021 07/18/2020 CKD HGB USE SMARTSET 82390 06/02/202206/02, 06/02/2021, 11/22/2020, Additional history exists COVID-19 Vaccine (2022- season) [...] hemoglobin A1c goal of less than 7.0% (HCC)- Primary Chronic kidney disease, stage 3a (HCC) Loss of weight HTN, goal below 140/90 Unspecified essential hypertension BPH without obstruction/lower urinary tract symptoms Hypertrophy of prostate without urinary obstruction and other lower urinary tract symptoms (LUTS) documented in this encounter Care Teams Merchant Tailor Relationship Specialty Start Date End Date Kelvin Joseph MD [address] [place] [address] [place] [address] PCP - General Family Medicine 12/22/23 documented as of this encounter
--- OUTSIDE RECORDS SUMMARY | 2024-01-06 07:22 | External Medical Summary | Summary of Care ---
Author Name Unknown Organization [facility] Address [address] [facility] [place] [address] Phone [phone] Care Team Providers Care Migratory Game Bird Biologist Name Role Phone Unavailable Primary Care Provider Unavailabl e Reason for Visit * Reason Onset Date Comments Medication Refill 10/22/2023 Encounter Details Date Type Department Care Team (Late st Contact Info) Description 10/22/2023 Refill Family Medicine [address] [place] [phone] Kelvin Joseph MD [address] [place] [address] [place] [address] Allergies No known active allergiesdocumented as of this encounter (statuses as of 10/22/2023) Medications Medication Sig Dispensed Refills Start Date [...] 02/24/2022 Active Carvedilol 12.5 MG Oral Tablet (Coreg)Indications :Atherosclerosis of unga coronary artery of unga heart without angina pectoris,Essential hypertension with goal [...] the morning. 90 Capsule 1 10/22/2023 Active Tamsulosin HCl 0.4 MG Oral Capsule (Flomax) Take 1 Capsule by mouth in the morning. 90 Capsule 1 08/23/2023 10/22/2023 Discontinued (Refill) documented as of this encounter (statuses as of 10/22/2023) Active Problems Problem Noted Date Diagnosed Date Chronic kidney disease, stage 3a 05/24/2023 Overview: Per CKD protocol Prediabetes 07/25/2018 Overview: Per Prediabetes protocol #1 Primary hypertension 12/09/2015 Seborrheic keratosis 11/05/2011 DYSLIPIDEMIA, GOAL LDL BELOW 100 05/23/2009 Overview: Per Lipid Taxonomy. Osteoarthrosis Atherosclerosis of unga co ronary artery of unga heart without angina pectoris STAGE 1 DIASTOLIC DYSFUNCTION BMI 29.0-29.9,adult documented as of this encounter (statuses as of 10/22/2023) Resolved Problems Problem Noted Date Diagnosed Date [...] as of this encounter (statuses as of 10/22/2023) Immunizations Name Administration Dates Next Due COVID-19 mRNA, LNP-s, No Pre serve, 2-Dose Series ([employer]) 03/25/2021,08/20/2020,07/30/2020 COVID-19, LNP-s, No Preserve , Sae-sucrose, Ages 12+ ([employer]) 09/23/2021 COVID-19, MRNA-LNP, 23-24, P F, 30 MCG/0.3 mL, 12 YRS AND ABOVE, IM ([email or web address]) 03/18/2023 Covid-19, Mrna, Lnp-s, Pf, B ivalent, 30 Mcg, IM, 12 yrs and above ([employer]) 04/14/2022 Pneumococcal Conjugate Vacc, 13 Valent (Prevnar) [...] encounter Miscellaneous Notes * Telephone Encounter - Bogdan Blair, BRET - 10/22/2023 9:48 AM EDT Pending Prescriptions: Disp Refills Tamsulosin HCl 0.4 MG Oral Capsule (Floma*90 Cap*1 Sig: Take 1 Capsule by mouth in the morning. Last Visit: 07/24/2022 (in office), Visit date not found (telemedicine) Next Visit: 01/04/2024 Last date the medication was ordered: [id number] Patient Active Problem List Diagnosis Code Osteoarthrosis M19.90 Atherosclerosis of unga coronary artery of unga heart without angina pectoris I25.10 DYSLIPIDEMIA, GOAL LDL BELOW 100 E78.5 STAGE 1 DIASTOLIC DYSFUNCTION I51.9 BMI 29.0-29.9,adult Z68.29 Seborrheic keratosis L82.1 Primary hypertension I10 Prediabetes R73.03 Chronic kidney disease, stage 3a (HCC) N18.31 Labs: Lab Results Component Value Date/Time CREATININE - [facility] 1.5 (H) 06/03/2023 11:12 AM CREATININE - [facility] 0.9 07/11/2020 11:06 AM CREATININE, RANDOM URINE - [facility] 131 07/24/2022 12:06 PM CREATININE, RANDOM URINE - [facility] 89 07/11/2020 11:05 AM CREATININE-OUTSIDE LAB 1.17 09/06/2020 12:00 AM Lab Results Component Value Date/Time POTASSIUM - [facility] 3.8 06/03/2023 11:12 AM POTASSIUM - [facility] 4.5 07/11/2020 11:06 AM POTASSIUM-OUTSIDE LAB 4.0 09/06/2020 12:00 AM No results found for: "TSH" Lab Results Component Value Date/Time LDL CHOLESTEROL (CALCULATED) - [facility] 47 07/06/2019 10:43 AM LDL CHOLESTEROL (CALCULATED) - [facility] UNINTERPRETABLE RESULT 06/30/2018 10:39 AM LDL CHOLESTEROL (DIRECT MEASURE) - [facility] 30 07/24/2022 12:06 PM LDL CHOLESTEROL (DIRECT MEASURE) - [facility] 58 07/15/2021 12:15 PM LDL CHOLESTEROL (DIRECT MEASURE) - [facility] 58 07/11/2020 11:06 AM LDL CHOLESTEROL (DIRECT MEASURE) - [facility] NOT APPLICABLE 07/06/2019 10:43 AM LDL CHOLESTEROL (DIRECT MEASURE) - [facility] 81 02/25/2009 10:46 AM Lab Results Component Value Date/Time ALT - [facility] 16 07/24/2022 12:06 PM ALT - [facility] 21 12/07/2017 04:15 PM Hemoglobin AIC Results: Lab Results Component Value Date/Time HEMOGLOBIN A1C - [facility] 6.6 (H) 07/24/2022 12:06 PM HEMOGLOBIN A1C - [facility] 6.1 (H) 01/20/2022 10:06 AM HEMOGLOBIN A1C - [facility] 6.4 (H) 07/15/2021 12:15 PM HEMOGLOBIN A1C - [facility] 6.1 (H) 07/11/2020 11:06 AM HEMOGLOBIN A1C - [facility] 6.0 (H) 07/06/2019 10:43 AM HEMOGLOBIN A1C - [facility] 5.8 (H) 06/30/2018 10:39 AM please refill this med documented in this encounter Plan of Treatment Upcoming Encounters Date Type Department Care Team (Late st Contact Info) Description 01/04/2024 11:00 AM EDT Office Visit Family Medicine [address] [place] [phone] Kelvin Joseph MD [address] [place] [address] [place] [phone] 05/03/2024 2:00 PM EST Office Visit Cardiology, [facility] [address] [facility] [place] [phone] Wen Woodson PA-C [address] [place] [address] 09/11/2024 11:00 AM EDT Office Visit Dermatology [address] [place] [address] Kylah Basurto PA-C [address] [place] [address] [place] [phone] Scheduled Procedures Name Priority Associated Diagnoses Date/Ti me COLONOSCOPY FLEXIBLE PROXIMAL DIAGNOSTIC Recall History of colon polyps Health Maintenance Due Date Last Done Comments CKD PHOS USE SMARTSET 99225 1965 Depression Screening 07/18/2021 07/18/2020 CKD HGB USE SMARTSET 18794 06/02/202206/02, 06/02/2021, 11/22/2020, Additional history exists B-12 01/20/2023 01/20/2022, 06/2021, 07/11/2020, Additional history exists Albumin/Creatinine Ratio 07/24/2023 [...] Completed 03/18/2023, 06/2021, 09/23/2021, Additional history exists GARDASIL-HPV IMMUNIZATION SERIES Aged [...]
--- OUTSIDE RECORDS SUMMARY | 2024-01-06 07:22 | External Medical Summary | Summary of Care ---
Author Name Unknown Organization [facility] Address [address] [facility] [place] [address] Phone [phone] Care Team Providers Care Roll Machine Operator Name Role Phone Kelvin Joseph MD Primary Care Provide r Reason for Visit * Reason Comments eRx-Medication Refill Encounter Details Date Type Department Care Team (Late st Contact Info) Description 12/20/2023 Refill Family Medicine [address] [phone] Kelvin Joseph MD [address] [place] [address] [place] [address] Type 2 diabetes mellitus with hemoglobin A1c goal of less than 7.0% ([facility]); Abnormal glucose; Hyperglycemia Allergies No known active allergiesdocumented as of this encounter (statuses as of 12/22/2023) Medications Medication Sig Dispensed Refills Start Date [...] 12.5 MG Oral Tablet (Coreg)Indications :Atherosclerosis of [place] coronary artery of [place] heart without angina pectoris,Essential hypertension with goal [...] AND EVENING MEALS 180 Tablet 1 12/22/2023 Active metFORMIN HCl 1000 MG Oral Tablet (Glucophage)Indica tions:Type 2 diabetes mellitus with hemoglobin A1c goal of less than 7.0% (HCC),Abnormal glucose,Hyperglyce endy TAKE 1 TABLET BY MOUTH TWICE DAILY WITH MORNING AND EVENING MEALS 180 Tablet 1 08/02/2023 4 Discontinued documented as of this encounter (statuses as of 12/22/2023) Active Problems Problem Noted Date Diagnosed Date Chronic kidney disease, stage 3a 05/24/2023 Overview: Per CKD protocol Prediabetes 07/25/2018 Overview: Per Prediabetes protocol #1 Primary hypertension 12/09/2015 Seborrheic keratosis 11/05/2011 DYSLIPIDEMIA, GOAL LDL BELOW 100 05/23/2009 Overview: Per Lipid Taxonomy. Osteoarthrosis Atherosclerosis of [place] co ronary artery of [place] heart without angina pectoris STAGE 1 DIASTOLIC DYSFUNCTION BMI 29.0-29.9,adult documented as of this encounter (statuses as of 12/22/2023) Resolved Problems Problem Noted Date Diagnosed Date Resolved Date Encounter for surveillance of abnormal nevi 05/04/2016 12/23/2017 Overview: dysplastic nevus (L lower flank) AK (actinic keratosis) 02/28/201407/06 Hyperglycemia 05/09/2012 12/29/2018 Overview: glucose 180 Conjunctivitis 01/09/2010 11/14/2012 Benign neoplasm of colon 07/14/200701/2018 Mixed dyslipidemia Overview: Per Lipid Taxonomy. History of colon polyps 05/14 HTN, goal below 140/90 12/16 documented as of this encounter (statuses as of 12/22/2023) Immunizations Name Administration Dates Next Due COVID-19 mRNA, LNP-s, No Pre serve, 2-Dose Series ([employer]) 03/25/2021,08/20/2020,07/30/2020 COVID-19, LNP-s, No Preserve , Sae-sucrose, Ages 12+ ([employer]) 09/23/2021 COVID-19, MRNA-LNP, 23-24, P F, 30 MCG/0.3 mL, 12 YRS AND ABOVE, IM ([facility] [facility]) 03/18/2023 Covid-19, Mrna, Lnp-s, Pf, B ivalent, 30 Mcg, IM, 12 yrs and above ([employer]) 04/14/2022 Pneumococcal Conjugate Vacc, 13 Valent (Prevnar) [...] encounter Miscellaneous Notes * Telephone Encounter - Kelvin Joseph MD - 12/22/2023 1:05 PM EDT Signed Prescriptions: Disp Refills metFORMIN HCl 1000 MG Oral Tablet (Glucoph*180 Ta*1 Sig: TAKE 1 TABLET BY MOUTH TWICE DAILY WITH MORNING AND EVENING MEALS Authorizing Provider: KELVIN JOSEPH * Telephone Encounter - Yana Turcios RN - 12/22/2023 12:12 PM EDTPending Prescriptions: Disp Refills metFORMIN HCl 1000 MG Oral Tablet (Glucoph*180 Ta*1 Sig: TAKE 1 TABLET BY MOUTH TWICE DAILY WITH MORNING AND EVENING MEALS * Telephone Encounter - Yana Turcios RN - 12/22/2023 12:12 PM EDT Pt has an appt next week * Telephone Encounter - Aleida Box [facility] - 12/22/2023 12:01 PM EDT Pending Prescriptions: Disp Refills metFORMIN HCl 1000 MG Oral Tablet (Glucoph*180 Ta*0 Sig: TAKE 1 TABLET BY MOUTH TWICE DAILY WITH MORNING AND EVENING MEALS * Telephone Encounter - Aleida Box RPh - 12/22/2023 12:01 PM EDT Pending Prescriptions: Disp Refills metFORMIN HCl 1000 MG Oral Tablet (Glucop*180 Ta*0 Sig: TAKE 1 TABLET BY MOUTH TWICE DAILY WITH MORNING AND EVENING MEALS Last Visit: 07/24/2022 (in office), Visit date not found (telemedicine) Next Visit: 01/04/2024 If no future appointments scheduled, and last appointment is greater than a year ago, please schedule patient for a follow-up appointment Last date the medication was ordered: 08/02/23 Pharmacy: [facility] Is this request for a controlled substance? No Urine Drug Screen:No results found for this or any previous visit. Patient Phone Numbers Labs: Lab Results Component Value Date/Time CREAT 1.5 (H) 06/03/2023 11:12 AM CREAT 1.17 09/06/2020 12:00 AM CREAT 0.9 07/11/2020 11:06 AM POTASSIUM 3.8 06/03/2023 11:12 AM POTASSIUM 4.0 09/06/2020 12:00 AM POTASSIUM 4.5 07/11/2020 11:06 AM LDLCALC 5 12/21/2023 10:00 AM LDLCALC 47 07/06/2019 10:43 AM LDLDIRECT 30 07/24/2022 12:06 PM LDLDIRECT 58 07/11/2020 11:06 AM LDLDIRECT 81 02/25/2009 10:46 AM ALT 16 07/24/2022 12:06 PM ALT 21 12/07/2017 04:15 PM HGBA1C 5.6 12/21/2023 10:00 AM HGBA1C 6.1 (H) 07/11/2020 11:06 AM documented in this encounter Plan of Treatment Upcoming Encounters Date Type Department Care Team (Late st Contact Info) Description 01/04/2024 11:00 AM EDT Office Visit Family Medicine [address] [place] [phone] Kelvin Joseph MD [address] [place] [address] [place] [address] 05/03/2024 2:00 PM EST Office Visit Card[facility], [facility] [address] [facility] [place] [address] Wen Woodson [facility]C [facility] [address] 09/11/2024 11:00 AM EDT Office Visit Dermatology [address] [place] [address] Kylah Basurto PA-C [address] [place] [address] [place] [address] Scheduled Procedures Name Priority Associated Diagnoses Date/Ti me COLONOSCOPY FLEXIBLE PROXIMAL DIAGNOSTIC Recall History of colon polyps Health Maintenance Due Date Last Done Comments CKD PHOS USE SMARTSET 17610 1963 Depression Screening 07/18/2021 07/18/2020 CKD HGB USE SMARTSET 14720 06/02/202206/02, 06/02/2021, 11/22/2020, Additional history exists B-12 01/20/2023 01/20/2022, 06/2021, 07/11/2020, Additional history exists COVID-19 Vaccine (2022-24 season) [...] A1c goal of less than 7.0% (HCC) Abnormal glucose Other abnormal glucose Hyperglycemia Other abnormal glucose documented in this encounter Care Teams Roll Machine Operator Relationship Specialty Start Date End Date Kelvin Joseph MD [address] [place] [address] [place] [address] PCP - General Family Medicine 12/22/23 documented as of this encounter
--- OUTSIDE RECORDS SUMMARY | 2024-01-06 07:22 | External Medical Summary | Summary of Care ---
Author Name Unknown Organization [facility] Address [address] [facility] [place] [address] Phone [phone] Care Team Providers Care Sales Promotion Representative Name Role Phone Unavailable Primary Care Provider Unavailabl e Reason for Visit * Reason Onset Date Comments Advice 09/21/2023 Encounter Details Date Type Department Care Team (Late st Contact Info) Description 09/21/2023 Telephone Cardiology, [facility] [address] [place] [address] Xavi Rangel MD [address] [place] [address] Advice Allergies No known active allergiesdocumented as [...] morning. 100 Tablet 1 11/07/2021 Active Aspirin Buf(VqUlgi-UwZhkk-OfY ) 325 MG Oral Tablet Take by mouth 1 Tablet daily . 0 02/24/2022 Active Carvedilol 12.5 MG Oral Tablet (Coreg)Indications:At herosclerosis of [place] coronary artery of [place] heart without angina pectoris,Essential hypertension with goal [...] Overview: Per Lipid Taxonomy. Osteoarthrosis Atherosclerosis of [place] co ronary artery of [place] heart without angina pectoris STAGE 1 DIASTOLIC [...] mRNA, LNP-s, No Pre serve, 2-Dose Series ([employer]) 03/25/2021,08/20/2020,07/30/2020 COVID-19, LNP-s, No Preserve , Sae-sucrose, Ages 12+ ([employer]) 09/23/2021 COVID-19, MRNA-LNP, 23-24, P F, 30 MCG/0.3 mL, 12 YRS AND ABOVE, IM ([facility]) 03/18/2023 Covid-19, Mrna, Lnp-s, Pf, B ivalent, 30 Mcg, IM, 12 yrs and above ([employer]) 04/14/2022 Pneumococcal Conjugate Vacc, 13 Valent (Prevnar) [...] encounter Miscellaneous Notes * Telephone Encounter - Xavi Rangel MD [...] Person calling: Pt Number to return call: [phone] Reason for call: Pt calling in. He was previously prescribed Meloxicam by Dr. Rangel for his arthritis pain. Pt is asking if Dr. Rangel would be willing to re prescribe him the medication again for his pain. Pharmacy: [facility] - mail order pharmacy Provider Name: Dr. Rangel Please advise. Thank you. documented in this encounter Plan of Treatment Upcoming Encounters Date Type Department Care Team (Late st Contact Info) Description 01/04/2024 11:00 AM EDT Office Visit Family Medicine [address] [place] [phone] Kelvin Joseph MD [address] [place] [address] [place] [address] 05/03/2024 2:00 PM EST Office Visit Cardiology, [facility] [address] [facility] [place] [address] Wen Woodson PA-C [address] [place] [address] 09/11/2024 11:00 AM EDT Office Visit Dermatology [address] [place] [address] Kylah Basurto PA-C [address] [place] [address] [place] [address] Scheduled Procedures Name Priority Associated Diagnoses Date/Ti me COLONOSCOPY FLEXIBLE PROXIMAL DIAGNOSTIC Recall History of colon polyps Health Maintenance Due Date Last Done Comments CKD PHOS USE SMARTSET 69710 1963 Depression Screening 07/18/2021 07/18/2020 CKD HGB USE SMARTSET 70433 06/02/202206/02, 06/02/2021, 11/22/2020, Additional history exists B-12 01/20/2023 01/20/2022, 02/0 06/2021, 07/11/2020, Additional history exists Albumin/Creatinine Ratio [...]
--- OUTSIDE RECORDS SUMMARY | 2024-01-06 07:23 | External Medical Summary | Summary of Care ---
Author Name Unknown Organization [facility] Address [address] [facility] [place] [address] Phone [phone] Care Team Providers Care Collar Worker Name Role Phone Unavailable Primary Care Provider Unavailabl e Reason for Visit * Reason Onset Date Comments Med Request 07/30/2023 Encounter Details Date Type Department Care Team (Late st Contact Info) Description 07/30/2023 Telephone Family Medicine [address] [phone] Rajwinder K[address] [place] [phone] Med Request Allergies No known active allergiesdocumented as of this encounter (statuses as of 07/30/2023) Medications Medication Sig Dispensed Refills Start Date [...] morning. 100 Tablet 1 11/07/2021 Active Aspirin Buf(PcCndy-VlSynm-QbR ) 325 MG Oral Tablet Take by mouth 1 Tablet daily . 0 02/24/2022 Active Losartan Potassium 50 MG Oral Tablet (Cozaar)Indications:E ssential hypertension with goal blood pressure less than 140/90,Cardiac disease TAKE 1 TABLET BY MOUTH DAILY 90 Tablet 2 12/14/2022 Active Carvedilol 12.5 MG Oral Tablet (Coreg)Indications:At herosclerosis of [place] coronary artery of [place] heart without angina pectoris,Essential hypertension with goal [...] WITH MORNING AND EVENING MEALS 180 Tablet 0 06/04/2023 Active Tamsulosin HCl 0.4 MG Oral Capsule (Flomax) Take 1 Capsule by mouth in the morning. 30 Capsule 0 07/30/2023 Active documented as of this encounter (statuses as of 07/30/2023) Active Problems Problem Noted Date Diagnosed Date Chronic kidney disease, stage 3a 05/24/2023 Overview: Per CKD protocol Prediabetes 07/25/2018 Overview: Per Prediabetes protocol #1 Primary hypertension 12/09/2015 Seborrheic keratosis 11/05/2011 DYSLIPIDEMIA, GOAL LDL BELOW 100 05/23/2009 Overview: Per Lipid Taxonomy. Osteoarthrosis Atherosclerosis of [place] co ronary artery of [place] heart without angina pectoris STAGE 1 DIASTOLIC DYSFUNCTION BMI 29.0-29.9,adult documented as of this encounter (statuses as of 07/30/2023) Resolved Problems Problem Noted Date Diagnosed Date [...] as of this encounter (statuses as of 07/30/2023) Immunizations Name Administration Dates Next Due COVID-19 mRNA, LNP-s, No Pre serve, 2-Dose Series ([employer]) 03/25/2021,08/20/2020,07/30/2020 COVID-19, LNP-s, No Preserve , Sae-sucrose, Ages 12+ ([employer]) 09/23/2021 COVID-19, MRNA-LNP, 23-24, P F, 30 MCG/0.3 mL, 12 YRS AND ABOVE, IM ([facility] 03/18/2023 Covid-19, Mrna, Lnp-s, Pf, B ivalent, 30 Mcg, IM, 12 yrs and above ([employer]) 04/14/2022 Pneumococcal Conjugate Vacc, 13 Valent (Prevnar) [...] encounter Miscellaneous Notes * Telephone Encounter - Micaela Covington LPN - 07/30/2023 4:36 PM EST He is aware of Note below He has apt to get est with Dr. Joseph in December * Telephone Encounter - Rajwinder Kessler DO - 07/30/2023 1:31 PM EST Script sent. If no improvement by next week, needs to be seen in office. Needs scheduled for routine follow up regardless - very overdue. Notify pt. * Telephone Encounter - Stacey Guerrero OSA - 07/30/2023 1:20 PM EST Patient stopped in today- thinks he has a kidney stone, requesting Tamsulosin. Has been having pain for 3 weeks, took a remaining pill from the last time he had a kidney stone- last spring. [facility] documented in this encounter Plan of Treatment Upcoming Encounters Date Type Department Care Team (Late st Contact Info) Description 01/04/2024 11:00 AM EDT Office Visit Family Medicine [address] [place] [phone] Kelvin Joseph MD [address] [place] [address] [place] [address] 05/03/2024 2:00 PM EST Office Visit Cardiology, [facility] 132 [facility] [place] [address] Wen Woodson PA-C [address] [place] [phone] 09/11/2024 11:00 AM EDT Office Visit Dermatology [address] [place] [address] Kylah Basurto PA-C [address] [place] [address] [place] [address] Scheduled Procedures Name Priority Associated Diagnoses Date/Ti me COLONOSCOPY FLEXIBLE PROXIMAL DIAGNOSTIC Recall History of colon polyps Health Maintenance Due Date Last Done Comments CKD PHOS USE SMARTSET 37167 1965 Depression Screening 07/18/2021 07/18/2020 CKD HGB USE SMARTSET 26447 06/02/202206/02, 06/02/2021, 11/22/2020, Additional history exists B-12 01/20/2023 01/20/2022, 06/2021, 07/11/2020, Additional history exists Albumin/Creatinine Ratio 07/24/2023 023, 07/15/2021, 07/11/2020, Additional history exists HbA1c 07/24/2023 07/24/2022, 080 02/2022, 07/15/2021, Additional history exists COLONOSCOPY-EVERY 2 [...]
--- OUTSIDE RECORDS SUMMARY | 2024-01-06 07:23 | External Medical Summary | Summary of Care ---
Author Name Unknown Organization [facility] Address [address] [facility] [place] [address] Phone [phone] Care Team Providers Care Marketing Assistant Name Role Phone Unavailable Primary Care Provider Unavailabl e Encounter Details Date Type Department Care Team (Late st Contact Info) Description 08/02/2023 Orders Only PATIENT PORTAL DO NOT DELETE THIS DEPT USED BY [place] [id number] Allergies No known active allergiesdocumented as of this encounter (statuses as of 08/02/2023) Medications Medication Sig Dispensed Refills Start Date [...] 12/14/2022 Active Carvedilol 12.5 MG Oral Tablet (Coreg)Indications :Atherosclerosis of [place] coronary artery of [place] heart without angina pectoris,Essential hypertension with goal blood pressure less than 140/90,Cardiac disease TAKE 1 TABLET BY MOUTH TWICE DAILY WITH FOOD 180 Tablet 3 01/08/2023 Active Rosuvastatin Calcium 40 MG Oral Tablet (Crestor) TAKE 1 TABLET BY MOUTH IN THE MORNING 90 Tablet 3 01/11/2023 Active Tamsulosin HCl 0.4 MG Oral Capsule (Flomax) Take 1 Capsule by mouth in the morning. 30 Capsule 0 07/30/2023 Active metFORMIN HCl 1000 MG Oral Tablet (Glucophage)Indica tions:Type 2 diabetes mellitus with hemoglobin A1c goal of less than 7.0% (HCC),Abnormal glucose,Hyperglyce endy TAKE 1 TABLET BY MOUTH TWICE DAILY WITH MORNING AND EVENING MEALS 180 Tablet 0 06/04/2023 4 Discontinued documented as of this encounter (statuses as of 08/02/2023) Active Problems Problem Noted Date Diagnosed Date Chronic kidney disease, stage 3a 05/24/2023 Overview: Per CKD protocol Prediabetes 07/25/2018 Overview: Per Prediabetes protocol #1 Primary hypertension 12/09/2015 Seborrheic keratosis 11/05/2011 DYSLIPIDEMIA, GOAL LDL BELOW 100 05/23/2009 Overview: Per Lipid Taxonomy. Osteoarthrosis Atherosclerosis of [place] co ronary artery of [place] heart without angina pectoris STAGE 1 DIASTOLIC DYSFUNCTION BMI 29.0-29.9,adult documented as of this encounter (statuses as of 08/02/2023) Resolved Problems Problem Noted Date Diagnosed Date [...] as of this encounter (statuses as of 08/02/2023) Immunizations Name Administration Dates Next Due COVID-19 mRNA, LNP-s, No Pre serve, 2-Dose Series ([employer]) 03/25/2021,08/20/2020,07/30/2020 COVID-19, LNP-s, No Preserve , Sae-sucrose, Ages 12+ ([employer]) 09/23/2021 COVID-19, MRNA-LNP, 23-24, P F, 30 MCG/0.3 mL, 12 YRS AND ABOVE, IM ([employer]) 03/18/2023 Covid-19, Mrna, Lnp-s, Pf, B ivalent, 30 Mcg, IM, 12 yrs and above ([employer]) 04/14/2022 Pneumococcal Conjugate Vacc, 13 Valent (Prevnar) [...] 11:00 AM EDT Office Visit Family Medicine [address] [place] [phone] Kelvin Joseph MD [address] [place] [address] [place] [address] 05/03/2024 2:00 PM EST Office Visit Cardiology, [facility] 132 [facility] [place] [address] Wen Woodson PA-C [address] [place] [address] [place] [address] 09/11/2024 11:00 AM EDT Office Visit Dermatology [address] [place] [address] Kylah Basurto PA-C [address] [place] [address] [place] [address] Scheduled Procedures Name Priority Associated Diagnoses Date/Ti me COLONOSCOPY FLEXIBLE PROXIMAL DIAGNOSTIC Recall History of colon polyps Health Maintenance Due Date Last Done Comments CKD PHOS USE SMARTSET 94202 1963 Depression Screening 07/18/2021 07/18/2020 CKD HGB USE SMARTSET 18501 06/02/202206/02, 06/02/2021, 11/22/2020, Additional history exists B-12 01/20/2023 01/20/2022, 06/2021, 07/11/2020, Additional history exists Albumin/Creatinine Ratio 07/24/2023 023, 07/15/2021, 07/11/2020, Additional history exists HbA1c 07/24/2023 07/24/2022, 0802/2022, 07/15/2021, Additional history exists COLONOSCOPY-EVERY 2 YRS [...]
--- OUTSIDE RECORDS SUMMARY | 2024-01-06 07:23 | External Medical Summary | Summary of Care ---
Author Name Unknown Organization [facility] Address [address] [facility] [place] [address] Phone [phone] Care Team Providers Care Seconds Inspector Name Role Phone Unavailable Primary Care Provider Unavailabl e Reason for Visit * Reason Comments eRx-Medication Refill Encounter Details Date Type Department Care Team (Late st Contact Info) Description 07/30/2023 Refill Family Medicine [address] [place] [address] Omar Melissa MD [address] [place] [address] [place] [address] Encounter for long-term (current) use of medications*; Type 2 diabetes mellitus with hemoglobin A1c goal of less than 7.0% (HCC); Abnormal glucose; Hyperglycemia Allergies No known active [...] 12.5 MG Oral Tablet (Coreg)Indications :Atherosclerosis of [place] coronary artery of [place] heart without angina pectoris,Essential hypertension with goal [...] EVENING MEALS 180 Tablet 1 08/02/2023 Active metFORMIN HCl 1000 MG Oral Tablet [...] Overview: Per Lipid Taxonomy. Osteoarthrosis Atherosclerosis of [place] co ronary artery of [place] heart without angina pectoris STAGE 1 DIASTOLIC [...] mRNA, LNP-s, No Pre serve, 2-Dose Series ([employer]) 03/25/2021,08/20/2020,07/30/2020 COVID-19, LNP-s, No Preserve , Sae-sucrose, Ages 12+ ([employer]) 09/23/2021 COVID-19, MRNA-LNP, 23-24, P F, 30 MCG/0.3 mL, 12 YRS AND ABOVE, IM ([facility]) 03/18/2023 Covid-19, Mrna, Lnp-s, Pf, B ivalent, 30 Mcg, IM, 12 yrs and above ([employer]) 04/14/2022 Pneumococcal Conjugate Vacc, 13 Valent (Prevnar) [...] encounter Miscellaneous Notes * Telephone Encounter - Omar Melissa MD - 08/02/2023 8:35 AM ESTSigned Prescriptions: Disp Refills metFORMIN HCl 1000 MG Oral Tablet (Glucoph*180 Ta*1 Sig: TAKE 1 TABLET BY MOUTH TWICE DAILY WITH MORNING AND EVENING MEALS Authorizing Provider: OMAR MELISSA * Telephone Encounter - Ritika Sibley CMA - 08/02/2023 8:31 AM ESTPending Prescriptions: Disp Refills metFORMIN HCl 1000 MG Oral Tablet (Glucoph*180 Ta*1 Sig: TAKE 1 TABLET BY MOUTH TWICE DAILY WITH MORNING AND EVENING MEALS * Telephone Encounter - Yamilka Paulino [facility] - 07/31/2023 11:03 AM EST Pending Prescriptions: Disp Refills metFORMIN HCl 1000 MG Oral Tablet (Glucoph*180 Ta*1 Sig: TAKE 1 TABLET BY MOUTH TWICE DAILY WITH MORNING AND EVENING MEALS * Telephone Encounter - Yamilka Paulino [facility] - 07/31/2023 10:59 AM EST Patient has no PCP under whom to authorize refills. Patient has lab orders pending, with office visit scheduled for 01/04/2024. Please approve if appropriate. Thank you, Yamilka Paulino [facility] Clinical Pharmacist [facility] ([facility]) (formerly Telepharmacy) 07/31/23 11:01 AM [phone] * Telephone Encounter - Yamilka Paulino RP - 07/31/2023 10:58 AM EST Did you pend patient's preferred pharmacy and medication before forwarding?yes Pharmacy: [facility] Pending Prescriptions: Disp Refills metFORMIN HCl 1000 [...] appointment Last date the medication was ordered: 06/04/2023 Is this request for a controlled substance?No [...] 11:00 AM EDT Office Visit Family Medicine [address] [place] [phone] Kelvin Joseph MD [address] [place] [address] [place] [address] 05/03/2024 2:00 PM EST Office Visit Cardiology, [facility] [address] [place] [address] Wen Woodson PA-C [address] [place] [address] 09/11/2024 11:00 AM EDT Office Visit Dermatology [address] [place] [address] Kylah Basurto PA-C [address] [place] [address] [place] [address] Scheduled Orders Name Type Priority Associated Diagnoses Orde r Schedule HEMOGLOBIN A1C Lab Routine Type 2 diabetes mellitus with hemoglobin A1c goal of less than 7.0% (HCC) Encounter for long-term (current) use of medications Expected: 08/14/2023 (Approximate), Expires: 07/31/2024 ALBUMIN / CREATININE RATIO, URINE Lab Routine Type 2 diabetes mellitus with hemoglobin A1c goal of less than 7.0% (HCC) Encounter for long-term (current) use of medications Expected: 08/14/2023 (Approximate), Expires: 07/31/2024 LIPID PANEL WITH DIRECT LDL IF TG IS HIGH Lab Routine Type 2 diabetes mellitus with hemoglobin A1c goal of less than 7.0% (HCC) Encounter for long-term (current) use of medications Expected: 08/14/2023 (Approximate), Expires: 07/31/2024 Scheduled Procedures Name Priority Associated Diagnoses Date/Ti me COLONOSCOPY FLEXIBLE PROXIMAL DIAGNOSTIC Recall History of colon polyps Health Maintenance Due Date Last Done Comments CKD PHOS USE SMARTSET 59501 1963 Depression Screening 07/18/2021 07/18/2020 CKD HGB USE SMARTSET 97200 06/02/202206/02, 06/02/2021, 11/22/2020, Additional history exists B-12 [...] as of this encounter Visit Diagnoses Diagnosis Encounter for long-term (current) use of medications- Primary Encounter for long-term (current) use of other medications Type 2 diabetes mellitus with hemoglobin A1c goal of less than 7.0% (HCC) Abnormal glucose Other abnormal glucose Hyperglycemia Other abnormal glucose documented in this encounter
--- OUTSIDE RECORDS SUMMARY | 2024-01-06 07:23 | External Medical Summary | Summary of Care ---
Author Name Unknown Organization [facility] Address [address] [facility] [place] [address] Phone [phone] Care Team Providers Care Sterilizer Operator Name Role Phone Unavailable Primary Care Provider Unavailabl e Reason for Visit * Reason Onset Date Comments Medication Refill 08/23/2023 Encounter Details Date Type Department Care Team (Late st Contact Info) Description 08/23/2023 Refill Family Medicine [address] [place] [address] Rajwinder K[address]ler[address] [place] [address] Allergies No known active allergiesdocumented as of this encounter (statuses as of 08/23/2023) Medications Medication Sig Dispensed Refills Start Date [...] the morning. 90 Capsule 1 08/23/2023 Active Tamsulosin HCl 0.4 MG Oral Capsule (Flomax) Take 1 Capsule by mouth in the morning. 30 Capsule 0 07/30/2023 08/23/2023 Discontinued (Refill) documented as of this encounter (statuses as of 08/23/2023) Active Problems Problem Noted Date Diagnosed Date [...] as of this encounter (statuses as of 08/23/2023) Resolved Problems Problem Noted Date Diagnosed Date [...] as of this encounter (statuses as of 08/23/2023) Immunizations Name Administration Dates Next Due COVID-19 mRNA, LNP-s, No Pre serve, 2-Dose Series ([employer]) 03/25/2021,08/20/2020,07/30/2020 COVID-19, LNP-s, No Preserve , Sae-sucrose, Ages 12+ ([employer]) 09/23/2021 COVID-19, MRNA-LNP, 23-24, P F, 30 MCG/0.3 mL, 12 YRS AND ABOVE, IM ([employer]) 03/18/2023 Covid-19, Mrna, Lnp-s, Pf, B ivalent, 30 Mcg, IM, 12 yrs and above ([employer]) 04/14/2022 Pneumococcal Conjugate Vacc, 13 Valent (Prevnar) [...] encounter Miscellaneous Notes * Telephone Encounter - Candido Joseph MD - 08/23/2023 1:18 PM EDT Signed Prescriptions: Disp Refills Tamsulosin HCl 0.4 MG Oral Capsule (Flomax)90 Cap*1 Sig: Take 1 Capsule by mouth in the morning. Authorizing Provider: CANDIDO JOSEPH * Telephone Encounter - Yana Turcios RN - 08/23/2023 1:11 PM EDTPending Prescriptions: Disp Refills Tamsulosin HCl 0.4 MG Oral Capsule (Flomax)90 Cap*1 Sig: Take 1 Capsule by mouth in the morning. * Telephone Encounter - Quin Monte OSA - 08/23/2023 12:56 PM EDT Did you pend patient's preferred pharmacy and medication before forwarding?yes Pharmacy: [id number] [facility] Pending Prescriptions: Disp Refills Tamsulosin HCl 0.4 MG Oral Capsule (Floma*30 Cap*0 Sig: Take 1 Capsule by mouth in the morning. Last Visit: 07/24/2022 (in office), Visit date not found (telemedicine) Next Visit: 01/04/2024 If no future appointments scheduled, and last appointment is greater than a year ago, please schedule patient for a follow-up appointment Last date the medication was ordered: 07.30.23 Is this request for a controlled substance?No [...] 11:00 AM EDT Office Visit Family Medicine [address] [place] [phone] Candido Joseph MD [address] [place] [address] [place] [address] 05/03/2024 2:00 PM EST Office Visit Cardiology, [facility] [address] [facility] [place] [address] Wen Woodson PA-C [address] [place] [id number] 09/11/2024 11:00 AM EDT Office Visit Dermatology [address] [place] [address] Kylah Basurto PA-C [address] [place] [address] [place] [phone] Scheduled Procedures Name Priority Associated Diagnoses Date/Ti me COLONOSCOPY FLEXIBLE PROXIMAL DIAGNOSTIC Recall History of colon polyps Health Maintenance Due Date Last Done Comments CKD PHOS USE SMARTSET 31545 1965 Depression Screening 07/18/2021 07/18/2020 CKD HGB USE SMARTSET 75241 06/02/202206/02, 06/02/2021, 11/22/2020, Additional history exists B-12 01/20/2023 01/20/2022, 06/2021, 07/11/2020, Additional history exists Albumin/Creatinine Ratio 07/24/2023 023, 07/15/2021, 07/11/2020, Additional history exists HbA1c 07/24/2023 07/24/2022, 02/2022, 07/15/2021, Additional history exists COLONOSCOPY-EVERY 2 [...]
--- OUTSIDE RECORDS SUMMARY | 2024-01-06 07:23 | External Medical Summary | Summary of Care ---
Author Name Unknown Organization [facility] Address [address] [facility] [place] [address] Phone [phone] Care Team Providers Care Engineering Job Titles Name Role Phone Unavailable Primary Care Provider Unavailabl e Reason for Visit * Reason Comments eRx-Medication Refill Encounter Details Date Type Department Care Team (Late st Contact Info) Description 08/21/2023 Refill Family Medicine [address] [place] [address] Omar Melissa MD [address] [place] [address] [place] [phone] Essential hypertension with goal blood pressure less [...] 12.5 MG Oral Tablet (Coreg)Indications :Atherosclerosis of [place] coronary artery of [place] heart without angina pectoris,Essential hypertension with goal [...] MOUTH DAILY 90 Tablet 1 08/23/2023 Active Losartan Potassium 50 MG Oral Tablet (Cozaar)Indication s:Essential hypertension with goal blood pressure less than 140/90,Cardiac disease TAKE 1 TABLET BY MOUTH DAILY 90 Tablet 2 12/14/2022 Discontinued documented as of this encounter (statuses as of 08/23/2023) Active Problems Problem Noted Date Diagnosed Date Chronic kidney disease, stage 3a 05/24/2023 Overview: Per CKD protocol Prediabetes 07/25/2018 Overview: Per Prediabetes protocol #1 Primary hypertension 12/09/2015 Seborrheic keratosis 11/05/2011 DYSLIPIDEMIA, GOAL LDL BELOW 100 05/23/2009 Overview: Per Lipid Taxonomy. Osteoarthrosis Atherosclerosis of [place] co ronary artery of [place] heart without angina pectoris STAGE 1 DIASTOLIC [...] mRNA, LNP-s, No Pre serve, 2-Dose Series ([employer]) 03/25/2021,08/20/2020,07/30/2020 COVID-19, LNP-s, No Preserve , Sae-sucrose, Ages 12+ ([employer]) 09/23/2021 COVID-19, MRNA-LNP, 23-24, P F, 30 MCG/0.3 mL, 12 YRS AND ABOVE, IM ([employer]irnat) 03/18/2023 Covid-19, Mrna, Lnp-s, Pf, B ivalent, 30 Mcg, IM, 12 yrs and above ([employer]) 04/14/2022 Pneumococcal Conjugate Vacc, 13 Valent (Prevnar) [...] encounter Miscellaneous Notes * Telephone Encounter - Abhijeet Nuñez RPh - 08/23/2023 12:45 PM EDT Signed Prescriptions: Disp Refills Losartan Potassium 50 MG Oral Tablet (Coza*90 Tab*1 Sig: TAKE 1 TABLET BY MOUTH DAILYAuthorizing Provider: OMAR MELISSA User: ABHIJEET NUÑEZ---- documented in this encounter Plan of Treatment Upcoming Encounters Date Type Department Care Team (Late st Contact Info) Description 01/04/2024 11:00 AM EDT Office Visit Family Medicine [address] [place] [phone] Kelvin Joseph MD [address] [place] [address] [place] [address] 05/03/2024 2:00 PM EST Office Visit Cardiology, [facility] [address] [place] [address] Wen Woodson PA-C [address] [place] [address] [place] [phone] 09/11/2024 11:00 AM EDT Office Visit Dermatology [address] [place] [address] Kylah Basurto PA-C [address] [place] [address] [place] [address] Scheduled Procedures Name Priority Associated Diagnoses Date/Ti me COLONOSCOPY FLEXIBLE PROXIMAL DIAGNOSTIC Recall History of colon polyps Health Maintenance Due Date Last Done Comments CKD PHOS USE SMARTSET 06123 1965 Depression Screening 07/18/2021 07/18/2020 CKD HGB USE SMARTSET 52480 06/02/202206/02, 06/02/2021, 11/22/2020, Additional history exists B-12 [...] as of this encounter Visit Diagnoses Diagnosis Essential hypertension with goal blood pressure less than 140/90 STAGE 1 DIASTOLIC DYSFUNCTION Heart disease, unspecified documented in this encounter
[2024-01-06] MEDS: SACCHAROMYCES BOULARDII 250 MG CAP PO SCH (07:37)
[2024-01-06] MEDS: PANTOprazole 40 MG in SYRINGE 0 ML IV SCH (07:37)
[2024-01-06] MEDS: CYANOCOBALAMIN (B-12) 500 MCG TABLET PO SCH (07:37)
[2024-01-06] MEDS: ROSUVASTATIN CALCIUM 20 MG TAB PO SCH (07:37)
--- NOTE | 2024-01-06 07:49 | XRay Report ---
XR chest 1V portable HISTORY: renal failure COMPARISON: None. FINDINGS: The lungs are clear. Cardiac silhouette is normal in size. No pleural effusions. No pneumot horax. IMPRESSION: No acute process. ACT 112: Negative or not required by law. Electronically signed by: Alex Tran M.D. 01/06/2024 7:47 AM
[2024-01-06] MEDS ORDERED: PANTOprazole 80 MG in DEXTROSE 5% 100 ML IV ONE (09:22)
[2024-01-06] MEDS ORDERED: PANTOPRAZOLE BOLUS/DRIP IV STA (09:22)
[2024-01-06] MEDS: SODIUM CHLORIDE 0.9% 1,000 ML IV SCH (09:28)
--- NOTE | 2024-01-06 10:37 | Nephrology Consultation ---
Date of Consultation January 06, 2024 Assessment & Plan (1) ISMAEL (acute kidney injury): baseline creat 1.5 and currently creat about 3.6--3.7 for last 3 days now. Making urine so non oliguric. associated with Anemia but normal PLT. Obstruction already ruled out--Renal US done. urine Does not seem very active but some blood and protein noted. continue IV fluid at least one more day. But we do need a workup for GN also--do c3, c4, JANI, ANCA, bence espino, Immunofixation, urine eosinophils. There is a possibility that he had Acute GI bleed and possibly had low BP that time which then caused ATN and we are seeing the tail end of the ATN. I did tell him that if we dont have an explanation and ISMAEL does not resolve we may have to do renal Biopsy also. (2) Anemia: Could be related with ISMAEL. Check iron and folate and b12 reti count. FOBT is negative. Consider CT abdomen and pelvis given 20 lbs wt loss Plan Plan discussed with primary team. time spent 55 mins History of Present Illness Attending Physician: Chris Murphy MD History of Present Illness 78/M with baseline creat of 1.5 . Feeling weak and eating less and wt loss for the last few weeks. He saw PCP yesterday on follow-up visit. 20 pound weight loss in 2 months as per patient. Also has Possible depression from 's demise few years ago. Transient very dark stool passage 2 weeks ago without abdominal pain but then resolved on own. Denies any urinary issues, hematuria or flank pain. Patient denies headache, chest pain, SOB. No NSAID or any exotic Supplements intake. Abnormal outpatient blood showing Hemoglobin 8.4, creatinine 3.7. Patient directed to ER for evaluation. Currently he feels " down", eating less and not much appetite. However otherwise no Symptoms noted. 12 Systems reviewed and negative. Currently getting IVF. Renal US done and normal. Creat about same so far at 3.6. hgb did drop as low as 7. BP is somewhat low and no Active GI bleed currently. Physical Exam Physical Exam: GENERAL: Comfortable, pleasant, no respiratory distress SKIN: Pallor, warm HEENT: MM moist. Neck supple. NO JVD CHEST : CTA, no tenderness HEART : RRR, no murmurs ABDOMEN: Some distention, nontender EXTREMITIES : No LE swelling/tenderness NEUROLOGIC : Coherent, no facial asymmetry, no other gross focality SKIN--No rashes noted Allergies Allergy/AdvReac Type Severity Reaction Status Date / Time No Known Allergies Allergy Verified 01/05/24 20:29 Home Medications Medication Instructions Recorded Confirmed Type Saccharomyces boulardii 250 mg 250 mg PO BID 01/05/24 01/05/24 History capsule (Florastor) acetaminophen 500 mg tablet 500 mg PO DIRECTED PRN 01/05/24 01/05/24 History (Tylenol Extra Strength) ARTHRITIC PAIN aspirin 325 mg tablet,delayed 325 mg PO DAILY 01/05/24 01/05/24 History release carvedilol 12.5 mg tablet 12.5 mg PO BID 01/05/24 01/05/24 History clopidogrel 75 mg tablet 75 mg PO QAM 01/05/24 01/05/24 History cyanocobalamin (vitamin B-12) 1,000 mcg PO DAILY 01/05/24 01/05/24 History 1,000 mcg tablet (Vitamin B-12) glucosamine 750 [id number] 1 tab PO BID 01/05/24 01/05/24 History no1 644 mg-C 30 mg-yadira 1 mg tablet (Osteo Bi-Flex Triple Strength) losartan 50 mg tablet 50 mg PO DAILY 01/05/24 01/05/24 History naproxen sodium 220 mg tablet 220 mg PO Q8H PRN ARTHRITIC PAIN 01/05/24 01/05/24 History (Aleve) omega-3 fatty acids 1,000 mg 1,000 mg PO DAILY 01/05/24 01/05/24 History capsule rosuvastatin 40 mg tablet 40 mg PO DAILY 01/05/24 01/05/24 History Patient History Social History Smoking Status: Former smoker Tobacco Type: Smokeless Tobacco (Dip or Chew) Second Hand Exposure: No; Do You Dip or Chew Tobacco: Yes; Tobacco Cessation Education Requested by Patient: No Hx Alcohol Use: Yes Alcohol type: beer Hx Substance Use: No Preferred Language: Swedish Communication Ability: Effective Automobile Seat Cover Installer Required: No Beliefs That Will Affect Care: None Current Living Situation: Alone Other Information That Helps Us Care for You: No Feels Safe at Home: Yes Safety Concerns: Feels Safe At This Time Assistive Devices: Glasses Results & Data Vital Signs (Past 12 Hours) Vital Signs Temp Pulse Pulse Pulse Resp BP BP 01/06/24 08:01 82 01/06/24 07:41 36.8 C 80 18 100/62 01/06/24 07:18 01/06/24 03:49 36.6 C 84 18 129/67 01/06/24 03:30 36.6 C 83 18 119/66 01/06/24 03:03 36.6 C 84 18 106/62 01/06/24 02:41 95 H 01/06/24 02:29 36.6 C 85 18 97/57 L 01/06/24 02:00 36.6 C 86 16 101/54 L 01/06/24 01:30 36.8 C 86 18 103/51 L 01/06/24 01:00 36.7 C 93 H 18 133/69 01/06/24 00:45 36.7 C 90 18 135/69 01/06/24 00:30 36.6 C 94 H 18 145/71 H 01/06/24 00:01 36.5 C 96 H 18 137/59 L 01/05/24 23:13 01/05/24 22:45 126/64 01/05/24 22:42 84 15 Pulse Ox O2 Del Method 01/06/24 08:01 01/06/24 07:41 96 Room Air 01/06/24 07:18 Room Air 01/06/24 03:49 98 01/06/24 03:30 97 01/06/24 03:03 97 01/06/24 02:41 01/06/24 02:29 97 01/06/24 02:00 97 01/06/24 01:30 98 01/06/24 01:00 99 01/06/24 00:45 98 01/06/24 00:30 99 01/06/24 00:01 100 Room Air 01/05/24 23:13 Room Air 01/05/24 22:45 99 Room Air 01/05/24 22:42 Laboratory Results reviewed CBC, URine, renal US, CXR, renal panel (2) Anemia Anemia type: unspecified type Qualified Code(s): D64.9 - Anemia, unspecified
[2024-01-06] MEDS: PANTOprazole 40 MG in DEXTROSE 5% MINI-B 100 ML IV SCH (10:44)
[2024-01-06 11:45] LABS: Appearance Urine Clear (Clear); Bacteria Urine Automated None Seen (None Seen); Bilirubin Urine Negative (Negative); Blood Urine 1+ (Negative); Color Urine Yellow; Epithelial Cell Urine Auto 0-2 /hpf (0-2); Glucose Urine UA Negative (Negative); Ketones Urine Negative (Negative); Leukocyte Esterase Urine Negative (Negative); Nitrite Urine Negative (Negative); Protein Urine 1+ (Negative); RBC Urine Automated 0-2 /hpf (0-2); Specific Gravity Urine 1.008 (1.000-1.030); Urobilinogen Urine Negative (Negative); WBC Urine Automated 0-5 /hpf (0-5); pH Urine 5.5 (4.5-7.5)
[2024-01-06 12:03] LABS: Protein Creatinine Ratio Urine 1.2 (0-0.2); Total Protein Urine Random 38.3 mg/dl (0-11.9)
--- NOTE | 2024-01-06 12:15 | Gastrointestinal Consultation ---
Date of Consultation January 06, 2024 Assessment & Plan (1) Anemia: -If nephrology and primary team are comfortable with kidney function, can move forward with bowel prep tonight for EGD/colon tomorrow, however if kidney function is a concern, this can be deferred to the outpatient setting. Either way, would continue Protonix 40 mg BID and continue to monitor H/H. Supervising Physician Co-Signing Physician Notes I personally saw and examined the patient. I have reviewed the chart and agree with the documentation provided by the [facility] ATTEND[facility] including discussion about the assessment, treatment and plan. Briefly, 78 yo male hospitalized due to abnormal outpatient labs and moderate fatigue. Due to findings of anemia, he was referred to [facility]. H/H att present is 8.3/24.5. He notes dark stools on several occasions weeks ago. He has a distant history of heartburn and reflux but notes that this went away when he retired. Takes plavix and last dose yesterday and asa full dose 325 mg. Colonoscopy was done 2 years ago and 2 polyp removed per pt. Difficult to do a colonoscopy on plavix as will not remove polyps. Suggest EGD in am as long cr improves and okay with renal. we will follow. DDX: pud, du, gastritis, duodenitis, ppi bid. History of Present Illness Reason for Consultation: Anemia Attending Physician: Chris Murphy MD History of Present Illness Patient is a 78 yo male hospitalized due to abnormal outpatient labs. He notes he was feeling fatigued and went to his PCP for annual labs. He notes he had cholesterol labs and basic blood count/metabolic panel. Due to findings of anemia, he was referred to [facility]. H/H att present is 8.3/24.5. He notes dark stools on several occasions weeks ago. He has a distant history of heartburn and reflux but notes that this went away when he retired. He has a BUN of 46/Creatinine of 3.61. He takes NSAIDs. He takes 325 mg Aspirin & Plavix daily. He has ISMAEL at present. This appears to be new. He has a pending nephrology consult. Allergies Allergy/AdvReac Type Severity Reaction Status Date / Time No Known Allergies Allergy Verified 01/05/24 20:29 Home Medications Medication Instructions Recorded Confirmed Type Saccharomyces boulardii 250 mg 250 mg PO BID 01/05/24 01/05/24 History capsule (Florastor) acetaminophen 500 mg tablet 500 mg PO DIRECTED PRN 01/05/24 01/05/24 History (Tylenol Extra Strength) ARTHRITIC PAIN aspirin 325 mg tablet,delayed 325 mg PO DAILY 01/05/24 01/05/24 History release carvedilol 12.5 mg tablet 12.5 mg PO BID 01/05/24 01/05/24 History clopidogrel 75 mg tablet 75 mg PO QAM 01/05/24 01/05/24 History cyanocobalamin (vitamin B-12) 1,000 mcg PO DAILY 01/05/24 01/05/24 History 1,000 mcg tablet (Vitamin B-12) glucosamine 750 [id number] 1 tab PO BID 01/05/24 01/05/24 History no1 644 mg-C 30 mg-yadira 1 mg tablet (Osteo Bi-Flex Triple Strength) losartan 50 mg tablet 50 mg PO DAILY 01/05/24 01/05/24 History naproxen sodium 220 mg tablet 220 mg PO Q8H PRN ARTHRITIC PAIN 01/05/24 01/05/24 History (Aleve) omega-3 fatty acids 1,000 mg 1,000 mg PO DAILY 01/05/24 01/05/24 History capsule rosuvastatin 40 mg tablet 40 mg PO DAILY 01/05/24 01/05/24 History Patient History Social History Smoking Status: Former smoker Tobacco Type: Smokeless Tobacco (Dip or Chew) Second Hand Exposure: No; Do You Dip or Chew Tobacco: Yes; Tobacco Cessation Education Requested by Patient: No Hx Alcohol Use: Yes Alcohol type: beer Hx Substance Use: No Preferred Language: Korean Communication Ability: Effective Internal Controls Manager Required: No Beliefs That Will Affect Care: None Current Living Situation: Alone Other Information That Helps Us Care for You: No Feels Safe at Home: Yes Safety Concerns: Feels Safe At This Time Assistive Devices: None Review of Systems Constitutional: + weakness; no fever and no chills Respiratory: no cough and no dyspnea Cardiovascular: no chest pain Psychiatric: no problem reported Physical Exam Constitutional: well developed Respiratory: normal respiratory effort Gastrointestinal (Abdomen): normal bowel sounds, soft, nontender, no hepatosplenomegaly Results & Data Vital Signs (Past 12 Hours) Vital Signs Temp Pulse Pulse Resp BP BP Pulse Ox 01/06/24 11:50 36.9 C 84 126/68 97 01/06/24 08:01 82 01/06/24 07:41 36.8 C 80 18 100/62 96 01/06/24 07:18 01/06/24 03:49 36.6 C 84 18 129/67 98 01/06/24 03:30 36.6 C 83 18 119/66 97 01/06/24 03:03 36.6 C 84 18 106/62 97 01/06/24 02:41 95 H 01/06/24 02:29 36.6 C 85 18 97/57 L 97 01/06/24 02:00 36.6 C 86 16 101/54 L 97 01/06/24 01:30 36.8 C 86 18 103/51 L 98 01/06/24 01:00 36.7 C 93 H 18 133/69 99 01/06/24 00:45 36.7 C 90 18 135/69 98 01/06/24 00:30 36.6 C 94 H 18 145/71 H 99 O2 Del Method 01/06/24 11:50 Room Air 01/06/24 08:01 01/06/24 07:41 Room Air 01/06/24 07:18 Room Air 01/06/24 03:49 01/06/24 03:30 01/06/24 03:03 01/06/24 02:41 01/06/24 02:29 01/06/24 02:00 01/06/24 01:30 01/06/24 01:00 01/06/24 00:45 01/06/24 00:30 PG Care Time/CCT Total # of Minutes Spent Total Time Spent with Patient: Total time spent is greater than 50% in coordination of care (as documented) at patient's floor/unit and/or counseling patient: Coding Level of Care Code 25615 INT INP/OBS CARE 3/75MIN Diagnoses Anemia D64.9 Anemia type: unspecified type (1) Anemia Anemia type: unspecified type Qualified Code(s): D64.9 - Anemia, unspecified
--- NOTE | 2024-01-06 15:51 | Hospitalist Progress Note ---
Date of Service January 06, 2024 Assessment & Plan (1) Anemia: Plan: ? Secondary to transient UGIB from 2 weeks ago Acute blood loss anemia FOBT done at the ER was positive. Hemoglobin remains at 8.3 Protonix drip started GI consulted For EGD colonoscopy tomorrow Anemia panel ordered for tomorrow as well Acute kidney failure with acute tubular necrosis Chronic kidney disease Creatinine 3.6 Renal ultrasound: Moderate prostatomegaly Urinalysis showing hyaline casts, RBCs, protein Glomerulonephritis workup ordered Continue IV fluid chronic diastolic heart failure (EF 58%, TTE 2022), patient euvolemic to dry hx PVD status post surgery hypertension, stable hyperlipidemia, on statin Rx DM2 diet-controlled, well-controlled as of recent outpatient hemoglobin A1c of 5.6 few days ago past tobacco abuse DVT prophylaxis: SCDs Disposition: Anticipate return to home when medically stable Admission and Anticipated Discharge Date Admission Date: January 05, 2024 Subjective Follow-up for anemia, acute renal failure, etc. Seen resting in bed, comfortable, not in distress States he feels weak but otherwise feels okay Denies abdominal pain, nausea vomiting, melena hematochezia No shortness of breath, chest pain, palpitation, dizziness No problems with voiding No other new symptoms Review of Systems Review of Systems: all noted and negative except for above Physical Exam Physical Exam: General- oriented x 3, not in distress, speaks in sentences with no effort or accessory muscle use Eyes- anicteric Neck- no JVD Lungs- clear breath sounds bilaterally, no rales/wheezes Heart- normal rate, regular rhythm; no murmurs Abdomen- normal bowel sounds, nondistended, soft, nontender Extremities- no pretibial edema, no calf tenderness Neuro- alert, oriented x 3; no gross focal neurologic deficits Skin- warm & dry Results & Data Results & Data Vital Signs (Past 12 Hours) Vital Signs Temp Pulse Pulse Resp BP Pulse Ox O2 Del Method 01/06/24 14:10 90 01/06/24 11:50 36.9 C 84 126/68 97 Room Air 01/06/24 08:01 82 01/06/24 07:41 36.8 C 80 18 100/62 96 Room Air 01/06/24 07:18 Room Air all noted and reviewed including below (1) Anemia Anemia type: unspecified type Qualified Code(s): D64.9 - Anemia, unspecified
[2024-01-06] MEDS: LAVAGE SOLUTION 4000ML PO SCH (17:59)
--- NOTE | 2024-01-07 01:17 | Communication Note ---
Date of Service: January 07, 2024 Zach prep held after review of GI attending note. EGD only today, no colonoscopy.
[2024-01-07 07:17] LABS: Reticulocyte % 1.42 % (0.50-2.00); Reticulocytes # 0.04 10^6/uL (0.020-0.100)
[2024-01-07 07:39] LABS: Iron 104 mcg/dl (35-175); Total Iron Binding Cap Calc 267 mcg/dl (250-450); Transferrin (FE) Percent Satur 39 % (20-50); Unsaturated Iron Binding Cap 163 mcg/dl (155-355)
--- NOTE | 2024-01-07 08:55 | History & Physical Bridge Note ---
Date of Service January 07, 2024 History & Physical Bridge Note I have reviewed the History & Physical and in the interval since the performance of the History & Physical I have noted the following changes of clinical significance: colonoscopy cancelled due to Plavix use. Keep NPO & proceed with EGD today.
--- NOTE | 2024-01-07 09:03 | Anesthesiology Consultation ---
Date of Service January 07, 2024 Assessment & Plan Chart Review Chart Review: Acceptable Risk for Surgery and Patient NOT seen in Pre Admission Testing Consults Requested none History Surgery Operation Date: 01/07/24 17:10 Proposed Procedures p Colonoscopy EGD Cholo Emmanuel MD Height/Weight Height: 5 ft 7 in Weight: 71.9 kg Allergies Allergy/AdvReac Type Severity Reaction Status Date / Time No Known Allergies Allergy Verified 01/05/24 20:29 Medications Home Medications Medication Instructions Recorded Confirmed Last Taken Saccharomyces boulardii 250 mg 250 mg PO BID 01/05/24 01/05/24 01/05/24 08:00 capsule (Florastor) acetaminophen 500 mg tablet 500 mg PO DIRECTED PRN 01/05/24 01/05/24 Unknown (Tylenol Extra Strength) ARTHRITIC PAIN aspirin 325 mg tablet,delayed 325 mg PO DAILY 01/05/24 01/05/24 01/05/24 release carvedilol 12.5 mg tablet 12.5 mg PO BID 01/05/24 01/05/24 01/05/24 08:00 clopidogrel 75 mg tablet 75 mg PO QAM 01/05/24 01/05/24 01/05/24 cyanocobalamin (vitamin B-12) 1,000 mcg PO DAILY 01/05/24 01/05/24 01/05/24 1,000 mcg tablet (Vitamin B-12) glucosamine 750 [id number] 1 tab PO BID 01/05/24 01/05/24 01/05/24 08:00 no1 644 mg-C 30 mg-yadira 1 mg tablet (Osteo Bi-Flex Triple Strength) losartan 50 mg tablet 50 mg PO DAILY 01/05/24 01/05/24 01/05/24 naproxen sodium 220 mg tablet 220 mg PO Q8H PRN ARTHRITIC PAIN 01/05/24 01/05/24 Unknown (Aleve) omega-3 fatty acids 1,000 mg 1,000 mg PO DAILY 01/05/24 01/05/24 01/05/24 capsule rosuvastatin 40 mg tablet 40 mg PO DAILY 01/05/24 01/05/24 01/05/24 Active Medications Generic Name Dose Route Start Last Admin Trade Name Freq PRN Reason Stop Dose Admin Carvedilol 12.5 mg 01/05/24 23:34 01/07/24 07:29 Carvedilol 12.5 Mg Tab PO 02/04/24 23:33 Not Given BID ANGELES Cyanocobalamin 1,000 mcg 01/06/24 09:00 01/07/24 07:30 Cyanocobalamin (B-12) 500 Mcg Tablet PO 02/05/24 08:59 1,000 mcg DAILY ANGELES Administration Sodium Chloride 1,000 mls @ 100 mls/hr 01/06/24 10:00 01/07/24 05:29 Nss IV 01/07/24 09:59 100 mls/hr .Q10H ANGELES Administration Pantoprazole Sodium 40 mg/ 100 mls @ 20 mls/hr 01/06/24 09:45 01/07/24 07:32 Dextrose IV 02/05/24 09:44 8 mg/hr Q5H ANGELES 20 mls/hr Administration 8 MG/HR Insulin Aspart 0 units 01/05/24 23:45 01/07/24 05:35 Insulin Aspart Per Unit Charge SC 02/04/24 23:44 Not Given Q6 ANGELES Rosuvastatin Calcium 40 mg 01/06/24 09:00 01/07/24 07:30 Rosuvastatin Calcium 20 Mg Tab PO 02/05/24 08:59 40 mg DAILY ANGELES Administration Saccharomyces Boulardii 250 mg 01/06/24 09:00 01/07/24 07:30 Saccharomyces Boulardii 250 Mg Cap PO 02/05/24 08:59 250 mg BID ANGELES Administration Exercise / Class Metabolic Activity II 4-5 Yardwork/Stairs/Walk up hill Past Anesthesia History No Hx of Anesthesia Complications and No Family Hx of Anesthesia Complications History of PONV No Hx of PONV and No Hx of Motion Sickness Social History Smoking Status: Former smoker Do You Dip or Chew Tobacco: Yes Hx Alcohol Use: Yes Alcohol type: beer alcohol intake frequency: holidays/special occasions only Hx Substance Use: No substance use type: does not use Physical Exam Vital Signs Last Vital Signs Temp 37 C 01/07/24 08:08 Pulse 82 01/07/24 08:18 Resp 18 01/07/24 08:08 BP 120/66 01/07/24 08:08 Pulse Ox 97 01/07/24 08:08 O2 Del Method Room Air 01/07/24 08:08 Testing Laboratory Results 01/06/24 05:37 01/06/24 05:37 PT 10.8 Seconds (9.0-12.0) 01/05/24 19:18 INR 1.0 (0.9-1.1) 01/05/24 19:18 Urine Color Yellow 01/06/24 Unknown Urine Appearance Clear (Clear) 01/06/24 Unknown Urine pH 5.5 (4.5-7.5) 01/06/24 Unknown Ur Specific [place] 1.008 (1.000-1.030) 01/06/24 Unknown Urine Protein 1+ (Negative) H 01/06/24 Unknown Urine Glucose (UA) Negative (Negative) 01/06/24 Unknown Urine Ketones Negative (Negative) 01/06/24 Unknown Urine Nitrite Negative (Negative) 01/06/24 Unknown Ur Leukocyte Esterase Negative (Negative) 01/06/24 Unknown Urine WBC (Auto) 0-5 /hpf (0-5) 01/06/24 Unknown Urine RBC (Auto) 0-2 /hpf (0-2) 01/06/24 Unknown U Hyaline Cast (Auto) 3-5 /lpf (0-2) H 01/06/24 Unknown U Epithel Cells (Auto) 0-2 /hpf (0-2) 01/06/24 Unknown Urine Bacteria (Auto) None Seen (None Seen) 01/06/24 Unknown Blood Type O Positive 01/05/24 19:42 Antibody Screen NEGATIVE 01/05/24 19:42 01/05/24 19:30 Urine Culture - Preliminary Urine,Clean Catch No growth - Less than 1,000 colonies/mL, Final report to follow. 01/07/24 01/07/24 01/07/24 07:55 05:28 00:22 POC Glucose 110 H 97 92
[2024-01-07 10:06] LABS: BUN Creatinine Ratio 9.7 (10-20); Calcium 8.2 mg/dl (8.6-10.3); Creatinine Clr Calc Pharmacy 16.7 ml/min; Est GFR (African American) 18.4 ml/min; Est GFR (Non-African American) 15.9 ml/min; Potassium 3.4 mmol/L (3.5-5.1)
[2024-01-07 10:39] LABS: Basophils # (auto) 0.04 K/uL (0.00-0.20); Basophils % (auto) 0.6 %; Eosinophils # (auto) 0.13 K/uL (0.00-0.50); Eosinophils % (auto) 2.1 %; Hematocrit (blood only) 22.4 % (42.0-52.0); Hemoglobin 7.6 g/dl (14.0-18.0); Immature Granulocytes # (auto) 0.02 K/uL (0.01-0.20); Immature Granulocytes % (auto) 0.3 %; Lymphocytes % (auto) 15.9 %; Mean Corpuscular Hemoglobin 29.9 pg (25.0-34.0); Mean Corpuscular Hgb Conc 33.9 g/dL (32.0-36.0); Mean Corpuscular Volume 88.2 fL (80.0-100.0); Mean Platelet Volume 9.5 fL (9.4-12.4); Monocytes # (auto) 0.51 K/uL (0.11-0.59); Monocytes % (auto) 8.1 %; Neutrophils # (auto) 4.58 K/uL (1.40-6.50); Platelet Count 286 K/uL (130-400); RDW Coefficient of Variation 14.8 % (11.5-14.5); Red Blood Count 2.54 M/uL (4.70-6.10); White Blood Count 6.28 K/ul (4.8-10.8)
[2024-01-07 11:15] LABS: RBC Morphology Unremarkable
--- NOTE | 2024-01-07 11:27 | Nephrology Progress Note ---
Date of Service January 07, 2024 Assessment & Plan Admission and Anticipated Discharge Date Admission Date: January 05, 2024 Subjective Assessment & Plan (1) ISMAEL (acute kidney injury): baseline creat 1.5 and currently creat about 3.6--3.7 for last 3 days now. Creat down a bit to 3.5 today. Making urine so non oliguric. associated with Anemia but normal PLT. Obstruction already ruled out--Renal US done. urine Does not seem active with some blood and protein noted. 1.2 gm proteinuria by the ratio continue IV fluid at least one more day as he is NPO today But we do need a workup for GN also--pending c3, c4, JANI, ANCA, bence espino, Immunofixation, urine eosinophils. There is a possibility that he had Acute GI bleed and possibly had low BP that time which then caused ATN and we are seeing the tail end of the ATN but could also be some types of GN I did tell him that if we dont have an explanation and ISMAEL does not resolve we may have to do renal Biopsy also. k is low today so give iv kcl 30 meq today (2) Anemia: Could be related with ISMAEL. reviewed folate, b12, iron panel--all normal. FOBT is negative. Consider CT Chest abdomen and pelvis given 20 lbs wt loss S--feels better than before. BP is not as low. More energy and stregth. making lot of urine. NPO for EGD later today Physical Exam Physical Exam: GENERAL: Comfortable, pleasant, no respiratory distress SKIN: Pallor, warm HEENT: MM moist. Neck supple. NO JVD CHEST : CTA, no tenderness HEART : RRR, no murmurs ABDOMEN: Some distention, nontender EXTREMITIES : No LE swelling/tenderness NEUROLOGIC : Coherent, no facial asymmetry, no other gross focality SKIN--No rashes noted Results & Data Vital Signs (Past 12 Hours) Vital Signs Temp Pulse Pulse Resp BP Pulse Ox O2 Del Method 01/07/24 09:07 36.6 C 77 16 136/64 98 Room Air 01/07/24 08:18 82 01/07/24 08:08 37 C 78 18 120/66 97 Room Air 01/07/24 07:11 Room Air 01/07/24 04:16 37.2 C 85 18 117/63 96 Room Air 01/06/24 23:55 37.3 C 79 16 102/56 L 97 Room Air
[2024-01-07] MEDS: POTASSIUM CHLORIDE / WTR 10 MEQ/100 ML PLCT IV SCH (11:36)
[2024-01-07] MEDS: SODIUM CHLORIDE 0.9% 500 ML IV SCH (14:22)
--- NOTE | 2024-01-07 14:32 | Anesthesiology Progress Note ---
Date of Service January 07, 2024 Anesthesia Post Procedure Vital Signs Vital Signs: Temp Pulse Pulse Resp BP BP Pulse Ox 01/07/24 14:30 77 01/07/24 14:22 76 16 117/58 L 96 01/07/24 13:49 36.6 C 77 16 136/64 98 01/07/24 11:26 37.1 C 76 18 146/72 H 99 01/07/24 09:07 36.6 C 77 16 136/64 98 01/07/24 08:18 82 01/07/24 08:08 37 C 78 18 120/66 97 01/07/24 07:11 01/07/24 04:16 37.2 C 85 18 117/63 96 01/06/24 23:55 37.3 C 79 16 102/56 L 97 01/06/24 22:00 77 01/06/24 21:57 01/06/24 19:39 36.6 C 81 14 115/66 98 01/06/24 15:58 36.6 C 79 109/63 99 O2 Del Method 01/07/24 14:30 01/07/24 14:22 Room Air 01/07/24 13:49 Room Air 01/07/24 11:26 Room Air 01/07/24 09:07 Room Air 01/07/24 08:18 01/07/24 08:08 Room Air 01/07/24 07:11 Room Air 01/07/24 04:16 Room Air 01/06/24 23:55 Room Air 01/06/24 22:00 01/06/24 21:57 Room Air 01/06/24 19:39 Room Air 01/06/24 15:58 Room Air Transfer of Care Handoff Completed per policy Notes Mental Status: alert / awake / arousable Patient Amnestic to Procedure: Yes Nausea / Vomiting: adequately controlled Pain: adequately controlled Airway Patency, RR, SpO2: stable & adequate BP & HR: stable & adequate Hydration State: stable & adequate Anesthetic Complications: no major complications apparent and Pt Satisfied with anesthetic care
--- NOTE | 2024-01-07 14:40 | GI REPORT ---
[facility] Patient: TEENA HAM : 1945 Sex at : Male Age: 78 Years Procedure: Upper GI endoscopy Date: 01/07/2024 Attending Physician: Juancarlos Emmanuel MD Referring MD: Dominic Joseph Md; Chris Murphy Indications: - Iron deficiency anemia due to suspected upper gastrointestinal bleeding Medications: - Monitored Anesthesia Care Complications: - No immediate complications. Estimated Blood Loss: - Estimated blood loss: None. Procedure: - Prior to the procedure, a History and Physical was performed, and patient medications and allergies were reviewed. The patient's tolerance of previous anesthesia was also reviewed. The risks and benefits of the procedure and the sedation options and risks were discussed with the patient. All questions were answered, and informed consent was obtained. Prior Anticoagulants: The patient has taken Plavix (clopidogrel), last dose was 1 day prior to procedure. ASA Grade Assessment: III - A patient with severe systemic disease. After reviewing the risks and benefits, the patient was deemed in satisfactory condition to undergo the procedure. - The egd scope was introduced through the mouth and advanced to the second part of the duodenum. - The upper GI endoscopy was accomplished without difficulty. - The patient tolerated the procedure well. Findings: - A 2 cm hiatal hernia was present. - LA Grade B (one or more mucosal breaks greater than 5 mm, not extending between the tops of two mucosal folds) esophagitis with no bleeding was found at the gastroesophageal junction (on retroflexion). Biopsies not done as recently on plavix. - Diffuse moderate inflammation characterized by erythema and congestion (edema) was found in the gastric body. Biopsies not done as on plavix. - The examined duodenum was normal. - Two non-bleeding superficial gastric ulcers with no stigmata of bleeding were found in the gastric body. The largest lesion was 4 mm in largest dimension. Impression: - 2 cm hiatal hernia. - LA Grade B reflux esophagitis with no bleeding. Rule out Majano's esophagus. - Biopsies not done as recently on plavix. - Acute gastritis, characterized by erythema and congestion (edema). - Biopsies not done as on plavix. - Normal examined duodenum. - Non-bleeding gastric ulcers with no stigmata of bleeding. - No specimens collected. Recommendation: - Discharge patient to home (ambulatory). - Resume previous diet. - Continue present medications. - Await pathology results. - Resume Plavix (clopidogrel) at prior dose tomorrow. - Return to primary care physician as previously scheduled. - Patient has a contact number available for emergencies. The signs and symptoms of potential delayed complications were discussed with the patient. Return to normal activities tomorrow. Written discharge instructions were provided to the patient. - Can we switch him to ASA 81 mg if on plavix as well. - Use Protonix (pantoprazole) 40 mg PO BID for 1 week. - Repeat upper endoscopy in 3 months to check healing. - PPI bid for 2 weeks and then qd. GI will sign off, please have pt follow up with us in 2-3 weeks. Procedure Code(s): - 48804, Esophagogastroduodenoscopy, flexible, transoral; diagnostic, including collection of specimen(s) by brushing or washing, when performed (separate procedure) Diagnosis Code(s): - D50.9, Iron deficiency anemia, unspecified - K44.9, Diaphragmatic hernia without obstruction or gangrene - K21.00, Gastro-esophageal reflux disease with esophagitis, without bleeding - K29.00, Acute gastritis without bleeding - K25.9, Gastric ulcer, unspecified as acute or chronic, without hemorrhage or perforation CPT(R) - 2023 copyright [employer]. All Rights Reserved. The CPT codes, CCI edits and ICD codes generated are intended as suggestions and were generated based on input data. These codes are preliminary and upon hand bobbin cleaner review may be revised to meet current compliance and payer requirements. The provider is responsible for the final determination of appropriate codes, and modifiers. Juancarlos Emmanuel MD This document has been electronically signed. Note Initiated:01/07/2024 Note Completed:01/07/2024 2:39 PM \\[email or web address]\Results\[id number]
[2024-01-07] MEDS: LIDOCAINE 2% 2 ML VIAL/AMP(20MG/ML) INFIL ONE ×2 (14:57)
[2024-01-07] MEDS: PROPOFOL IV EMULSION 10 MG/ML 20 ML VIAL IV ONE (14:57)
[2024-01-07] MEDS: POTASSIUM CHLORIDE CRTAB 20 MEQ TABCR PO STA (15:44)
--- NOTE | 2024-01-07 17:18 | Hospitalist Progress Note ---
Date of Service January 07, 2024 delayed entry date of service noted above Assessment & Plan (1) Anemia: Plan: likely secondary to Upper GI Bleed Acute gastritis, esophagitis, gastric ulcer Acute blood loss anemia FOBT done at the ER was positive. Hemoglobin remains at 8.3 Protonix drip started GI consulted For EGD colonoscopy tomorrow Anemia panel ordered for tomorrow as well s/p EGD: Impression: - 2 cm hiatal hernia. - LA Grade B reflux esophagitis with no bleeding. Rule out Majano's esophagus. - Biopsies not done as recently on plavix. - Acute gastritis, characterized by erythema and congestion (edema). - Biopsies not done as on plavix. - Normal examined duodenum. - Non-bleeding gastric ulcers with no stigmata of bleeding. - No specimens collected. Repeat upper endoscopy in 3 months to check healing. PPI bid for 2 weeks and then qd reduce ASA to 81mg from 325mg daily hold Plavix for now, obtain CBC first on ff up with PCP, if Hg stable, resume Plavix discuss with Vascular Surgery (carotid stenosis) if patient actually needs Plavix in addition to ASA Acute kidney failure with acute tubular necrosis Chronic kidney disease Creatinine 3.6 Renal ultrasound: Moderate prostatomegaly Urinalysis showing hyaline casts, RBCs, protein Glomerulonephritis and Multiple Myeloma workup ordered, pending crea remained stable at 3.6 voiding with no issues chronic diastolic heart failure (EF 58%, TTE 2022), patient euvolemic to dry hx PVD status post surgery hypertension, stable hyperlipidemia, on statin Rx DM2 diet-controlled, well-controlled as of recent outpatient hemoglobin A1c of 5.6 few days ago past tobacco abuse DVT prophylaxis: SCDs Disposition: Anticipate return to home when medically stable Admission and Anticipated Discharge Date Admission Date: January 05, 2024 Subjective ff up for anemia, etc seen resting in bed, comfortable s/p EGD no chest pain, dyspnea, palpitations, dizziness no abdominal pain, nausea/vomiting tolerating clears well no other symptoms Review of Systems Review of Systems: all noted and negative except for above Physical Exam Physical Exam: General- oriented x 3, not in distress, speaks in sentences with no effort or accessory muscle use Eyes- anicteric Neck- no JVD Lungs- clear breath sounds bilaterally, no rales/wheezes Heart- normal rate, regular rhythm; no murmurs Abdomen- normal bowel sounds, nondistended, soft, nontender Extremities- no pretibial edema, no calf tenderness Neuro- alert, oriented x 3; no gross focal neurologic deficits Skin- warm & dry Results & Data Results & Data Vital Signs (Past 12 Hours) Vital Signs Temp Pulse Pulse Resp BP Pulse Ox O2 Del Method 01/07/24 15:52 36.5 C 73 18 148/73 H 100 Room Air 01/07/24 14:52 76 16 150/72 H 97 Room Air 01/07/24 14:37 74 16 120/61 97 Room Air 01/07/24 14:30 77 01/07/24 14:22 76 16 117/58 L 96 Room Air 01/07/24 13:49 36.6 C 77 16 136/64 98 Room Air 01/07/24 11:26 37.1 C 76 18 146/72 H 99 Room Air 01/07/24 09:07 36.6 C 77 16 136/64 98 Room Air 01/07/24 08:18 82 01/07/24 08:08 37 C 78 18 120/66 97 Room Air 01/07/24 07:11 Room Air all noted and reviewed including below (1) Anemia Anemia type: unspecified type Qualified Code(s): D64.9 - Anemia, unspecified
[2024-01-07] MEDS ORDERED: Nursing to Pharmacy Communication SCH (21:00)
[2024-01-07] MEDS ORDERED: INSULIN ASPART PER UNIT CHARGE SC SCH (21:00)
[2024-01-07] MEDS: INSULIN ASPART PER UNIT CHARGE SC SCH (21:01)
[2024-01-08 07:23] LABS: Basophils # (auto) 0.03 K/uL (0.00-0.20); Basophils % (auto) 0.5 %; Eosinophils # (auto) 0.15 K/uL (0.00-0.50); Eosinophils % (auto) 2.4 %; Hematocrit (blood only) 23.1 % (42.0-52.0); Hemoglobin 7.8 g/dl (14.0-18.0); Immature Granulocytes # (auto) 0.03 K/uL (0.01-0.20); Immature Granulocytes % (auto) 0.5 %; Lymphocytes # (auto) 0.97 K/uL (1.20-3.40); Lymphocytes % (auto) 15.4 %; Mean Corpuscular Hemoglobin 30.2 pg (25.0-34.0); Mean Corpuscular Hgb Conc 33.8 g/dL (32.0-36.0); Mean Corpuscular Volume 89.5 fL (80.0-100.0); Mean Platelet Volume 8.9 fL (9.4-12.4); Monocytes # (auto) 0.48 K/uL (0.11-0.59); Monocytes % (auto) 7.6 %; Neutrophils # (auto) 4.65 K/uL (1.40-6.50); Neutrophils % (auto) 73.6 %; Platelet Count 231 K/uL (130-400); RDW Coefficient of Variation 14.6 % (11.5-14.5); RDW Standard Deviation 47.5 fL (36.4-46.3); Red Blood Count 2.58 M/uL (4.70-6.10); White Blood Count 6.31 K/ul (4.8-10.8)
[2024-01-08 08:00] LABS: BUN Creatinine Ratio 7.7 (10-20); Calcium 7.7 mg/dl (8.6-10.3); Creatinine Clr Calc Pharmacy 16.2 ml/min; Est GFR (African American) 17.8 ml/min; Est GFR (Non-African American) 15.4 ml/min; Potassium 3.6 mmol/L (3.5-5.1)
[2024-01-08 08:07] LABS: RBC Morphology Unremarkable
[2024-01-08] MEDS ORDERED: SODIUM CHLORIDE 0.9% 250 ML IV PRN (09:12)
[2024-01-08] MEDS: ACETAMINOPHEN 325 MG TAB PO ONE (09:27)
--- NOTE | 2024-01-08 10:47 | Nephrology Progress Note ---
Date of Service January 08, 2024 Assessment & Plan (1) ISMAEL (acute kidney injury): Plan: baseline creat 1.5 and currently creat about 3.6--3.7 for last 3 days now. Making urine so non oliguric. associated with Anemia but normal PLT. Obstruction already ruled out--Renal US done. No RBCs in the urine bili is 1.2 g of proteinuria. Given anemia, ISMAEL and proteinuria, will need to rule out multiple myeloma. Serologies and SPEP UPEP are pending Continue to monitor renal function with daily BMP No indication for dialysis.Possibility of renal biopsy as this is likely a multiple myeloma (2) Anemia: Plan: He will need workup for multiple myeloma and other blood dyscrasias. Initial workup is pending. Continue to monitor and transfuse as needed for hemoglobin less than 7 Avoid transfusions for hemoglobin greater than 7 Plan Plan discussed with primary team. time spent 55 mins Admission and Anticipated Discharge Date Admission Date: January 05, 2024 Subjective Seen for acute kidney injury and anemia. He feels better today. No shortness of breath or leg swelling. He is getting a unit of blood. Review of Systems 2 Review of Systems: All other systems were reviewed and negative except as noted in HPI Physical Exam 2 Physical Exam: General exam: Appears comfortable, no acute distress HEENT: Pupils are equal and reactive to light Neck: No JVD, neck is supple trachea is midline Respiratory system: Clear breath sounds bilaterally. Gastrointestinal: Abdomen is soft, non distended, non tender, bowel sounds are present CVS: Regular rate and rhythm. No murmurs, rubs or gallops Musculoskeletal: No joint or muscle tenderness Extremities: Non tender, no edema, peripheral pulses are present Neuro: Oriented, no tremors, no focal neurological deficits Skin: No rashes Results & Data Vital Signs (Past 12 Hours) Vital Signs Temp Pulse Pulse Resp BP BP BP 01/08/24 10:38 36.7 C 73 18 150/71 H 01/08/24 10:21 36.7 C 73 18 136/71 01/08/24 08:26 36.7 C 71 18 104/63 01/08/24 08:12 80 01/08/24 07:08 01/08/24 02:34 36.9 C 82 18 118/64 01/07/24 23:07 72 01/07/24 22:58 36.8 C 79 18 112/67 Pulse Ox O2 Del Method 01/08/24 10:38 98 01/08/24 10:21 98 01/08/24 08:26 99 Room Air 01/08/24 08:12 01/08/24 07:08 Room Air 01/08/24 02:34 96 Room Air 01/07/24 23:07 01/07/24 22:58 97 Room Air Laboratory Results 01/08/24 06:57 01/08/24 06:57 WBC 6.31 RBC 2.58 L MCV 89.5 MCH 30.2 MCHC 33.8 RDW Std Deviation 47.5 H RDW Coeff of Emmett 14.6 H Plt Count 231 MPV 8.9 L (2) Anemia Anemia type: unspecified type Qualified Code(s): D64.9 - Anemia, unspecified
--- NOTE | 2024-01-08 15:08 | Hospitalist Progress Note ---
Date of Service January 08, 2024 Assessment & Plan (1) Anemia: Plan: likely secondary to Upper GI Bleed Acute gastritis, esophagitis, gastric ulcer Acute blood loss anemia FOBT done at the ER was positive. Hemoglobin 7.0 required 2 units PRBC to maintain Hg >8 given history of CAD Protonix drip given s/p EGD: Impression: - 2 cm hiatal hernia. - LA Grade B reflux esophagitis with no bleeding. Rule out Majano's esophagus. - Biopsies not done as recently on plavix. - Acute gastritis, characterized by erythema and congestion (edema). - Biopsies not done as on plavix. - Normal examined duodenum. - Non-bleeding gastric ulcers with no stigmata of bleeding. - No specimens collected. Repeat upper endoscopy in 3 months to check healing. PPI bid for 2 weeks and then qd reduce ASA to 81mg from 325mg daily hold Plavix for now, obtain CBC first on ff up with PCP, if Hg stable, resume Plavix please discuss with Vascular Surgery (carotid stenosis) if patient actually needs Plavix in addition to ASA Acute kidney failure with acute tubular necrosis Chronic kidney disease Creatinine 3.6 Renal ultrasound: Moderate prostatomegaly Urinalysis showing hyaline casts, RBCs, protein Glomerulonephritis and Multiple Myeloma workup ordered, pending crea remained stable at 3.6 voiding with no issues need to ff up with Nephro in 1-2 weeks to continue work up and evaluation advised not to use NSAIDs, seek medical attention if with vomiting/diarrhea, poor intake chronic diastolic heart failure (EF 58%, TTE 2022), euvolemic hx PVD status post surgery hypertension, stable hyperlipidemia, on statin Rx DM2 diet-controlled, well-controlled as of recent outpatient hemoglobin A1c of 5.6 few days ago past tobacco abuse DVT prophylaxis: SCDs Disposition: d/c home ff up with PCP in 1 week ff up with Nephro 1-2 weeks Admission and Anticipated Discharge Date Admission Date: January 05, 2024 Subjective Follow-up for anemia, upper GI bleed, etc. Seen resting in bed, comfortable, not in distress States he feels fine overall No abdominal pain, nausea vomiting, melena or hematochezia No chest pain, shortness of breath, palpitations No other new symptom states he is ready for discharged home Review of Systems Review of Systems: all noted and negative except for above Physical Exam Physical Exam: General- oriented x 3, not in distress, speaks in sentences with no effort or accessory muscle use Eyes- anicteric Neck- no JVD Lungs- clear breath sounds bilaterally, no rales/wheezes Heart- normal rate, regular rhythm; no murmurs Abdomen- normal bowel sounds, nondistended, soft, nontender Extremities- no pretibial edema, no calf tenderness Neuro- alert, oriented x 3; no gross focal neurologic deficits Skin- warm & dry Results & Data Results & Data Vital Signs (Past 12 Hours) Vital Signs Temp Pulse Pulse Resp BP BP BP 01/08/24 13:23 36.8 C 70 18 132/72 01/08/24 12:23 36.7 C 70 18 132/63 01/08/24 11:27 36.7 C 75 18 123/72 01/08/24 11:23 36.7 C 75 18 123/72 01/08/24 10:53 36.7 C 75 18 133/66 01/08/24 10:38 36.7 C 73 18 150/71 H 01/08/24 10:21 36.7 C 73 18 136/71 01/08/24 08:26 36.7 C 71 18 104/63 01/08/24 08:12 80 01/08/24 07:08 Pulse Ox O2 Del Method 01/08/24 13:23 98 01/08/24 12:23 99 01/08/24 11:27 100 Room Air 01/08/24 11:23 99 01/08/24 10:53 97 01/08/24 10:38 98 01/08/24 10:21 98 01/08/24 08:26 99 Room Air 01/08/24 08:12 01/08/24 07:08 Room Air all noted and reviewed including below (1) Anemia Anemia type: unspecified type Qualified Code(s): D64.9 - Anemia, unspecified
--- NOTE | 2024-01-08 16:14 | Discharge Summary ---
Discharge Summary Date of Service January 08, 2024 Principal Dx & Hospital Course #1 = Principal Diagnosis (1) Anemia: likely secondary to Upper GI Bleed Acute gastritis, esophagitis, gastric ulcer Acute blood loss anemia FOBT done at the ER was positive. Hemoglobin 7.0 required 2 units PRBC to maintain Hg >8 given history of CAD Protonix drip given s/p EGD: Impression: - 2 cm hiatal hernia. - LA Grade B reflux esophagitis with no bleeding. Rule out Majano's esophagus. - Biopsies not done as recently on plavix. - Acute gastritis, characterized by erythema and congestion (edema). - Biopsies not done as on plavix. - Normal examined duodenum. - Non-bleeding gastric ulcers with no stigmata of bleeding. - No specimens collected. Repeat upper endoscopy in 3 months to check healing. PPI bid for 2 weeks and then qd reduce ASA to 81mg from 325mg daily hold Plavix for now, obtain CBC first on ff up with PCP, if Hg stable, resume Plavix please discuss with Vascular Surgery (carotid stenosis) if patient actually needs Plavix in addition to ASA Acute kidney failure with acute tubular necrosis Chronic kidney disease Creatinine 3.6 Renal ultrasound: Moderate prostatomegaly Urinalysis showing hyaline casts, RBCs, protein Glomerulonephritis and Multiple Myeloma workup ordered, pending crea remained stable at 3.6 voiding with no issues need to ff up with Nephro in 1-2 weeks to continue work up and evaluation advised not to use NSAIDs, seek medical attention if with vomiting/diarrhea, poor intake chronic diastolic heart failure (EF 58%, TTE 2022), euvolemic hx PVD status post surgery hypertension, stable hyperlipidemia, on statin Rx DM2 diet-controlled, well-controlled as of recent outpatient hemoglobin A1c of 5.6 few days ago past tobacco abuse DVT prophylaxis: SCDs Disposition: d/c home ff up with PCP in 1 week ff up with Nephro 1-2 weeks Notes For Next Care Provider Medication Changes From Visit Decrease your aspirin from 325 mg to 81 mg p.o. daily. Start Protonix 40 mg twice a day for 2 weeks, then daily. Stop losartan. Reduce carvedilol from 12.5 to 6.25 mg twice a day Admission HPI Per Admitting Provider History obtained from patient and records. Medical history significant for chronic diastolic heart failure (EF 58%, TTE 2022), PVD status post surgery, hypertension, hyperlipidemia, DM2 diet- controlled, CRI (baseline creatinine 1.5), urolithiasis, past tobacco abuse. Patient saw PCP yesterday on follow-up visit. 20 pound weight loss in 2 months as per patient. Possible depression from 's demise years ago as per patient but denies suicidality. Transient dark stool passage 2 weeks ago without abdominal pain. Denies hematuria or flank pain. Patient denies headache, chest pain, SOB. No inordinate OTC NSAID intake. Abnormal outpatient blood work drawn from 2 days ago resulted yesterday. Hemoglobin 8.4, creatinine 3.7. Patient directed to ER for evaluation. 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 Admission Exam Per Admitting Provider GENERAL: Comfortable, pleasant, no respiratory distress SKIN: Pallor, warm HEENT: Alopecia, pale palpebral conjunctivae, no ptosis, dry buccal mucosa NECK : Supple, no tenderness CHEST : CTA, no tenderness HEART : RRR, no obvious murmurs ABDOMEN: Some distention, nontender EXTREMITIES : No LE swelling/tenderness, no other conspicuous deformities noted NEUROLOGIC : Coherent, no facial asymmetry, no other gross focality Discharge Exam General- oriented x 3, not in distress, speaks in sentences with no effort or accessory muscle use Eyes- anicteric Neck- no JVD Lungs- clear breath sounds bilaterally, no rales/wheezes Heart- normal rate, regular rhythm; no murmurs Abdomen- normal bowel sounds, nondistended, soft, nontender Extremities- no pretibial edema, no calf tenderness Neuro- alert, oriented x 3; no gross focal neurologic deficits Skin- warm & dry Updated Medication List Medication Instructions Recorded Confirmed Type Saccharomyces boulardii 250 mg 250 mg PO BID 01/05/24 01/05/24 History capsule (Florastor) acetaminophen 500 mg tablet 500 mg PO DIRECTED PRN 01/05/24 01/05/24 History (Tylenol Extra Strength) ARTHRITIC PAIN clopidogrel 75 mg tablet 75 mg PO QAM 01/05/24 01/05/24 History cyanocobalamin (vitamin B-12) 1,000 mcg PO DAILY 01/05/24 01/05/24 History 1,000 mcg tablet (Vitamin B-12) glucosamine 750 [id number] 1 tab PO BID 01/05/24 01/05/24 History no1 644 mg-C 30 mg-yadira 1 mg tablet (Osteo Bi-Flex Triple Strength) omega-3 fatty acids 1,000 mg 1,000 mg PO DAILY 01/05/24 01/05/24 History capsule rosuvastatin 40 mg tablet 40 mg PO DAILY 01/05/24 01/05/24 History aspirin 81 mg tablet,delayed 81 mg PO DAILY #30 tabs 01/08/24 Rx release (Ecotrin Low Strength) carvedilol 12.5 mg tablet 6.25 mg (1/2 x 12.5 mg) PO BID #0 01/08/24 01/05/24 Rx tabs pantoprazole 40 mg tablet,delayed 40 mg PO UD 30 days #30 tabs 01/08/24 Rx release Hospital Stay Data Consultations 01/05/24 20:22 ED Decision to Admit Stat 01/05/24 23:34 Consult Gastroenterology Routine 01/06/24 07:02 Consult Nephrology Routine Procedures Performed Operation Date: 01/07/24 17:10 Actual Procedures p Esophagogastroduodenoscopy - Juancarlos Emmanuel MD Indications: - Iron deficiency anemia due to suspected upper gastrointestinal bleeding Medications: - Monitored Anesthesia Care Complications: - No immediate complications. Estimated Blood Loss: - Estimated blood loss: None. Procedure: - Prior to the procedure, a History and Physical was performed, and patient medications and allergies were reviewed. The patient's tolerance of previous anesthesia was also reviewed. The risks and benefits of the procedure and the sedation options and risks were discussed with the patient. All questions were answered, and informed consent was obtained. Prior Anticoagulants: The patient has taken Plavix (clopidogrel), last dose was 1 day prior to procedure. ASA Grade Assessment: III - A patient with severe systemic disease. After reviewing the risks and benefits, the patient was deemed in satisfactory condition to undergo the procedure. - The egd scope was introduced through the mouth and advanced to the second part of the duodenum. - The upper GI endoscopy was accomplished without difficulty. - The patient tolerated the procedure well. Findings: - A 2 cm hiatal hernia was present. - LA Grade B (one or more mucosal breaks greater than 5 mm, not extending between the tops of two mucosal folds) esophagitis with no bleeding was found at the gastroesophageal junction (on retroflexion). Biopsies not done as recently on plavix. - Diffuse moderate inflammation characterized by erythema and congestion (edema) was found in the gastric body. Biopsies not done as on plavix. - The examined duodenum was normal. - Two non-bleeding superficial gastric ulcers with no stigmata of bleeding were found in the gastric body. The largest lesion was 4 mm in largest dimension. Impression: - 2 cm hiatal hernia. - LA Grade B reflux esophagitis with no bleeding. Rule out Majano's esophagus. - Biopsies not done as recently on plavix. - Acute gastritis, characterized by erythema and congestion (edema). - Biopsies not done as on plavix. - Normal examined duodenum. - Non-bleeding gastric ulcers with no stigmata of bleeding. - No specimens collected. Recommendation: - Discharge patient to home (ambulatory). - Resume previous diet. - Continue present medications. - Await pathology results. - Resume Plavix (clopidogrel) at prior dose tomorrow. - Return to primary care physician as previously scheduled. - Patient has a contact number available for emergencies. The signs and symptoms of potential delayed complications were discussed with the patient. Return to normal activities tomorrow. Written discharge instructions were provided to the patient. - Can we switch him to ASA 81 mg if on plavix as well. - Use Protonix (pantoprazole) 40 mg PO BID for 1 week. - Repeat upper endoscopy in 3 months to check healing. - PPI bid for 2 weeks and then qd. GI will sign off, please have pt follow up with us in 2-3 weeks. Diagnostic Imagining Performed 01/05/24 23:59 US Renal Bladder [US renal/blad retro comp] Stat COMPARISON: No relevant prior studies available. FINDINGS: Right kidney: Right kidney measures 11.5 cm in length. No stones. No hydronephrosis. Left kidney: Left kidney measures 11 cm in length. No stones. No hydronephrosis. Bladder: Bilateral ureteric jets are seen. Free fluid: Trace perihepatic fluid is seen. Other findings: Moderate prostatomegaly. IMPRESSION: 1. No hydronephrosis or nephrolithiasis 2. Moderate prostatomegaly Electronically signed by: Arjun Cosme MD 01/06/24 05:01 AM Pending Results Patient Have Any Pending Studies at Discharge: No Discharge Instructions Given to Patient (Per Discharging Provider) PLEASE REFER TO YOUR NEW MEDICATION LIST AND FOLLOW INSTRUCTIONS CAREFULLY. YOUR NEW MEDICATIONS INCLUDE: Decrease your aspirin from 325 mg to 81 mg p.o. daily. Start Protonix 40 mg twice a day for 2 weeks, then daily. Stop losartan. Reduce carvedilol from 12.5 to 6.25 mg twice a day Always take aspirin with a full stomach. Always drink plenty of water. Do not take medications under the class of NSAIDs including ibuprofen, naproxen, etc. PLEASE CALL YOUR PRIMARY CARE PHYSICIAN OR RETURN TO THE ER IF WITH WORSENING OF SYMPTOMS, INCLUDING Abdominal pain, nausea vomiting, black or bloody stools, Dizziness, shortness of breath, chest pain, weakness, Low urine output, problems urination, etc. FOLLOW UP WITH PRIMARY CARE PHYSICIAN In 1 week. Follow-up with wet machine operator Dr. Desouza in 1 to 2 weeks. The clinic will be calling you soon for the appointment. Total Time Total Time Spent Total Time Spent (In Minutes): 45 minutes
[2024-01-08] MEDS ORDERED: hydrOXYzine HCl 10 MG TAB PO PRN (19:37)
[2024-01-08] MEDS ORDERED: PANTOprazole 40 MG TAB PO SCH (21:00)
[2024-01-08] MEDS ORDERED: carvediloL 6.25 MG TAB PO SCH (21:00)
[2024-01-11 18:03] LABS: Complement C3 80 mg/dL (82-185); Complement Total(CH50) 54 U/mL (31-60)
== END 2024-01-08 15:38 | disposition home or self-care (01) | DRG 377 ==
LOC: ED 18:43 → 2N 22:09

== ENCOUNTER 2024-05-18 16:39 | Inpatient (IN) ==
[2024-05-18 17:28] LABS: Basophils # (auto) 0.07 K/uL (0.00-0.20); Basophils % (auto) 0.6 %; Eosinophils # (auto) 0.47 K/uL (0.00-0.50); Eosinophils % (auto) 4.1 %; Hematocrit (blood only) 25.2 % (42.0-52.0); Hemoglobin 8.3 g/dl (14.0-18.0); Immature Granulocytes # (auto) 0.08 K/uL (0.01-0.20); Immature Granulocytes % (auto) 0.7 %; Lymphocytes % (auto) 11.5 %; Mean Corpuscular Hemoglobin 29.5 pg (25.0-34.0); Mean Corpuscular Hgb Conc 32.9 g/dL (32.0-36.0); Mean Corpuscular Volume 89.7 fL (80.0-100.0); Mean Platelet Volume 8.7 fL (9.4-12.4); Monocytes # (auto) 0.69 K/uL (0.11-0.59); Monocytes % (auto) 6.1 %; Neutrophils # (auto) 8.72 K/uL (1.40-6.50); Platelet Count 443 K/uL (130-400); RDW Coefficient of Variation 12.7 % (11.5-14.5); RDW Standard Deviation 41.3 fL (36.4-46.3); Red Blood Count 2.81 M/uL (4.70-6.10); White Blood Count 11.33 K/ul (4.8-10.8)
[2024-05-18 17:40] LABS: Albumin Level 4.5 gm/dl (3.4-5.0); BUN Creatinine Ratio 11.4 (10-20); Bilirubin,Total 0.3 mg/dl (0.2-1.0); Calcium 9.6 mg/dl (8.6-10.3); Creatinine Clr Calc Pharmacy 19.5 ml/min; Potassium 4.1 mmol/L (3.5-5.1); Total Protein 7.4 gm/dl (6.0-8.3)
[2024-05-18] MEDS: PANTOprazole 80 MG in DEXTROSE 5% 100 ML IV ONE (17:41)
[2024-05-18] MEDS: PANTOPRAZOLE BOLUS/DRIP IV STA (17:47)
[2024-05-18] MEDS: PANTOprazole 40 MG in DEXTROSE 5% MINI-B 100 ML IV SCH (17:48)
[2024-05-18 18:02] LABS: Partial Thromboplastin Ratio 0.9; Partial Thromboplastin Time 25 Seconds (21-31); Prothrombin Time 10.8 Seconds (9.0-12.0)
--- NOTE | 2024-05-18 18:09 | History & Physical Report ---
Date of Service May 18, 2024 Assessment & Plan (1) Melena: Plan: Acute GI Bleeding/Melena: Acute blood loss anemia Likely secondary to hemorrhoids/Polyps/Diverticulosis/Gastritis Last Colonoscopy:05/08/2024 colonoscopy: Hemorrhoids, one 7 mm polyp in cecum was removed mild diverticulosis sigmoid colon and descending colon, internal hemorrhoids Last Endoscopy:05/08/2024 EGD: Nonobstructing Schatzki ring, hiatal hernia, chronic gastritis which was biopsied, acquired duodenal stenosis, nonbleeding duodenal diverticulum INR:1.0 Hold aspirin, Plavix Monitor H&H Transfuse PRBCs as needed Blood consent obtained Avoid anticoagulants, NASIDs Started on IV protonix ggt Gentle IV fluids N.p.o. after midnight Gastroenterology consulted CAD s/p stent Carotid disease s/p right carotid endarterectomy Continue statin Hold aspirin, Plavix secondary to GI bleed DM II Diet controlled Insulin sliding scale for now Monitor BGs CKD IV Renal function at baseline Monitor Avoid nephrotoxic agents as able BPH Continue tamsulosin Bladder scan as needed Hypertension Continue home medications with holding parameters Monitor blood pressure DVT Px: SCDs for now History of Present Illness Chief Complaint: Melena Primary Care Provider: Kelvin Joseph MD Patient is 79-year-old male with PMH HTN, dyslipidemia, CAD s/p stent, carotid disease s/p right carotid endarterectomy, DM II, CKD IV, history of GI bleed, CKD, BPH and other medical problems presents for evaluation of abnormal blood work. Patient visited his r developer yesterday and had blood work showing low hemoglobin and patient informed that he has been having melena which prompted the physician to send him to ED for further evaluation. Patient states that he has been having melena 1-2 bowel movements per day for the last 4 to 5 days. He also reports chills today. Patient had EGD, colonoscopy on 08 May which showed hiatal hernia, chronic gastritis, nonbleeding duodenal diverticulum, internal hemorrhoids, polyp. Patient denies any NSAIDs use. He is on aspirin, Plavix for peripheral vascular disease. His last melanotic bowel movement was this morning. Patient seen by nephrology, Dr. Desouza on 05/17/24. Hgb: 7.1 from Hgb of 10 on 03/06/2024 05/08/2024 EGD: Nonobstructing Schatzki ring, hiatal hernia, chronic gastritis which was biopsied, acquired duodenal stenosis, nonbleeding duodenal diverticulum 05/08/2024 colonoscopy: Hemorrhoids, one 7 mm polyp in cecum was removed mild diverticulosis sigmoid colon and descending colon, internal hemorrhoids Denies any history of chest pain, dyspnea, palpitations, dizziness, diaphoresis, cough, wheezing, hemoptysis, fever, chills, fall, loss of consciousness, headache, weakness, numbness, change in vision, bowel/bladder incontinence, nausea, vomiting, abdominal pain, diarrhea, dysuria, hematuria, recent change in medications . Allergies Allergy/AdvReac Type Severity Reaction Status Date / Time No Known Allergies Allergy Verified 01/05/24 20:29 Home Medications Medication Instructions Recorded Confirmed Type acetaminophen 500 mg tablet 500 mg PO DIRECTED PRN 01/05/24 05/18/24 History (Tylenol Extra Strength) ARTHRITIC PAIN clopidogrel 75 mg tablet 75 mg PO QAM 01/05/24 05/18/24 History glucosamine 750 [id number]-juarcmnieze-[id number] 1 tab PO BID 01/05/24 05/18/24 History no1 644 mg-C 30 mg-yadira 1 mg tablet (Osteo Bi-Flex Triple Strength) omega-3 fatty acids 1,000 mg 1,000 mg PO DAILY 01/05/24 05/18/24 History capsule rosuvastatin 40 mg tablet 40 mg PO DAILY 01/05/24 05/18/24 History aspirin 81 mg tablet,delayed 81 mg PO DAILY #30 tabs 01/08/24 05/18/24 Rx release (Ecotrin Low Strength) carvedilol 12.5 mg tablet 6.25 mg (1/2 x 12.5 mg) PO BID #0 01/08/24 05/18/24 Rx tabs latanoprost 0.005 % eye drops 1 drp OPB HS 05/18/24 05/18/24 History losartan 50 mg tablet 50 mg PO HS 05/18/24 05/18/24 History pantoprazole 40 mg tablet,delayed 40 mg PO DAILY 05/18/24 05/18/24 History release tamsulosin 0.4 mg capsule 0.4 mg PO QAM 05/18/24 05/18/24 History Past Med/Surg History Problem List (Updated 05/18/24 @ 19:38 by Remy Bentley MD) Melena ISMAEL (acute kidney injury) Anemia (Acute) Social History Smoking Status: Former smoker Tobacco Type: Smokeless Tobacco (Dip or Chew) Second Hand Exposure: No; Do You Dip or Chew Tobacco: Yes; Hx Alcohol Use: Yes Alcohol type: beer Hx Substance Use: No Preferred Language: Pakistani Communication Ability: Effective Facility Engineer Required: No Beliefs That Will Affect Care: None Current Living Situation: Alone Feels Safe at Home: Yes Assistive Devices: None Review of Systems Review of Systems: All systems reviewed & are unremarkable except as noted in Subjective Physical Exam Physical Exam: Physical Exam: Vitals signs as noted above General Appearance:Moderately built and nourished, no apparent distress Head: normocephalic, Atraumatic Eyes: normal inspection, EOMI Neck: supple, Trachea midline Respiratory/Chest: Normal breath sounds, CTA, No accessory muscle use Cardiovascular: S1, S2, No murmur Abdomen/GI:Soft, Non tender, Bowel sounds present Extremities/Musculoskeletal:normal inspection, no edema Neurologic/Psych:AAOX3, grossly no focal neurological deficits Skin: normal color, warm Results & Data Results & Data Vital Signs (Past 12 Hours) Vital Signs Temp Pulse Pulse Resp BP BP Pulse Ox 05/18/24 18:05 85 05/18/24 17:34 83 16 139/67 97 05/18/24 17:16 97 05/18/24 16:51 37 C 101 H 18 106/67 100 O2 Del Method 05/18/24 18:05 05/18/24 17:34 Room Air 05/18/24 17:16 Room Air 05/18/24 16:51 Room Air Laboratory Results Short CBC 05/18/24 Range/Units 17:01 WBC 11.33 H (4.8-10.8) K/ul Hgb 8.3 L (14.0-18.0) g/dl Hct 25.2 L (42.0-52.0) % Plt Count 443 H (130-400) K/uL BMP 05/18/24 17:01 Sodium 140 Potassium 4.1 Chloride 107 Carbon Dioxide 25 BUN 34 H Creatinine 2.97 H Glucose 174 H Calcium 9.6 Liver Function 05/18/24 Range/Units 17:01 Total Bilirubin 0.3 (0.2-1.0) mg/dl Direct Bilirubin 0.0 (0-0.2) mg/dl AST 13 (13-39) U/L ALT 13 (7-52) U/L Alkaline Phosphatase 72 (34-104) U/L Albumin 4.5 (3.4-5.0) gm/dl ECG Additional Comments: --EKG: Normal sinus rhythm, QTc 458.
--- NOTE | 2024-05-18 18:14 | History & Physical Report ---
Date of Service May 18, 2024 History of Present Illness Primary Care Provider: Kelvin Joseph MD Allergies Allergy/AdvReac Type Severity Reaction Status Date / Time No Known Allergies Allergy Verified 01/05/24 20:29 Home Medications Medication Instructions Recorded Confirmed Type acetaminophen 500 mg tablet 500 mg PO DIRECTED PRN 01/05/24 05/18/24 History (Tylenol Extra Strength) ARTHRITIC PAIN clopidogrel 75 mg tablet 75 mg PO QAM 01/05/24 05/18/24 History glucosamine 750 [id number] 1 tab PO BID 01/05/24 05/18/24 History no1 644 mg-C 30 mg-yadira 1 mg tablet (Osteo Bi-Flex Triple Strength) omega-3 fatty acids 1,000 mg 1,000 mg PO DAILY 01/05/24 05/18/24 History capsule rosuvastatin 40 mg tablet 40 mg PO DAILY 01/05/24 05/18/24 History aspirin 81 mg tablet,delayed 81 mg PO DAILY #30 tabs 01/08/24 05/18/24 Rx release (Ecotrin Low Strength) carvedilol 12.5 mg tablet 6.25 mg (1/2 x 12.5 mg) PO BID #0 01/08/24 05/18/24 Rx tabs latanoprost 0.005 % eye drops 1 drp OPB HS 05/18/24 05/18/24 History losartan 50 mg tablet 50 mg PO DAILY 05/18/24 05/18/24 History pantoprazole 40 mg tablet,delayed 40 mg PO DAILY 05/18/24 05/18/24 History release tamsulosin 0.4 mg capsule 0.4 mg PO QAM 05/18/24 05/18/24 History Past Med/Surg History Problem List ISMAEL (acute kidney injury) Anemia (Acute) Social History Smoking Status: Former smoker Tobacco Type: Smokeless Tobacco (Dip or Chew) Second Hand Exposure: No; Do You Dip or Chew Tobacco: Yes; Hx Alcohol Use: Yes Alcohol type: beer Hx Substance Use: No Preferred Language: [place] Communication Ability: Effective Foundry Superintendant Required: No Beliefs That Will Affect Care: None Current Living Situation: Alone Feels Safe at Home: Yes Assistive Devices: None Results & Data Results & Data Vital Signs (Past 12 Hours) Vital Signs Temp Pulse Pulse Resp BP BP Pulse Ox 05/18/24 18:05 85 05/18/24 17:34 83 16 139/67 97 05/18/24 17:16 97 05/18/24 16:51 37 C 101 H 18 106/67 100 O2 Del Method 05/18/24 18:05 05/18/24 17:34 Room Air 05/18/24 17:16 Room Air 05/18/24 16:51 Room Air
[2024-05-18] MEDS ORDERED: POLYETHYLENE (MIRALAX) 17 GM PACK PO PRN (19:59)
[2024-05-18] MEDS ORDERED: DEXTROSE 50% 50 ML SYRINGE IV PRN (19:59)
[2024-05-18] MEDS ORDERED: ONDANSETRON INJ 2 MG/ML 2 ML VIAL IV PRN (19:59)
[2024-05-18] MEDS ORDERED: ACETAMINOPHEN 325 MG TAB PO PRN (19:59)
[2024-05-18] MEDS ORDERED: SODIUM CHLORIDE 0.9% 50 ML IV PRN ×2 (19:59→22:54)
[2024-05-18] MEDS ORDERED: GLUCOSE 40% GEL 15 GM TUBE PO PRN (19:59)
[2024-05-18] MEDS ORDERED: GLUCAGON FOR INJ 1 MG VIAL SQ PRN (19:59)
[2024-05-18] MEDS ORDERED: CARBOHYDRATES FOR HYPOGLYCEMIA PO PRN (19:59)
[2024-05-18] MEDS ORDERED: GLUCOSE 10 TAB/TUBE PO PRN (19:59)
[2024-05-18] MEDS ORDERED: SODIUM CHLORIDE 0.9% 100 ML IV PRN ×2 (19:59→22:54)
[2024-05-18] MEDS: LATANOPROST 0.005% OP SOLN 2.5 ML BTL OPB SCH (20:59)
[2024-05-18] MEDS: carvediloL 6.25 MG TAB PO SCH (21:00)
[2024-05-18] MEDS: INSULIN ASPART PER UNIT CHARGE SC SCH (21:00)
[2024-05-18] MEDS: LOSARTAN POTASSIUM 50 MG TAB PO SCH (21:00)
[2024-05-18] MEDS: SODIUM CHLORIDE 0.9% 500 ML IV SCH (22:39)
[2024-05-18 22:50] LABS: Hematocrit (blood only) 19.9 % (42.0-52.0); Hemoglobin 6.6 g/dl (14.0-18.0)
[2024-05-18] MEDS: ACETAMINOPHEN 325 MG TAB PO ONE (23:02)
--- NOTE | 2024-05-18 23:31 | Emergency Department Note ---
History of Present Illness General Chief complaint: Illness Stated complaint: ANEMIC, DARK STOOLS LOW BLOOD COUNTS Time Seen by Provider: 05/18/24 17:03 History of Present Illness Provider Complaint: + melena Onset (ago): 4 day(s) Pain Consistency: + constant Relieved By: + none Exacerbated By: + bowel movement Context: + history of GI bleed; no rectal trauma, no alcohol abuse or no foreign travel Associated symptoms: no abdominal pain, no nausea, no vomiting, no epistaxis, no fever, no chills, no headaches or no shortness of breath HPI Narrative: Patient reports she was referred here by his GI doctor Dr. Miller. Home Medications Medication Instructions Recorded Confirmed Type acetaminophen 500 mg tablet 500 mg PO DIRECTED PRN 01/05/24 05/18/24 History (Tylenol Extra Strength) ARTHRITIC PAIN clopidogrel 75 mg tablet 75 mg PO QAM 01/05/24 05/18/24 History glucosamine 750 [id number] 1 tab PO BID 01/05/24 05/18/24 History no1 644 mg-C 30 mg-yadira 1 mg tablet (Osteo Bi-Flex Triple Strength) omega-3 fatty acids 1,000 mg 1,000 mg PO DAILY 01/05/24 05/18/24 History capsule rosuvastatin 40 mg tablet 40 mg PO DAILY 01/05/24 05/18/24 History aspirin 81 mg tablet,delayed 81 mg PO DAILY #30 tabs 01/08/24 05/18/24 Rx release (Ecotrin Low Strength) carvedilol 12.5 mg tablet 6.25 mg (1/2 x 12.5 mg) PO BID #0 01/08/24 05/18/24 Rx tabs latanoprost 0.005 % eye drops 1 drp OPB HS 05/18/24 05/18/24 History losartan 50 mg tablet 50 mg PO HS 05/18/24 05/18/24 History pantoprazole 40 mg tablet,delayed 40 mg PO DAILY 05/18/24 05/18/24 History release tamsulosin 0.4 mg capsule 0.4 mg PO QAM 05/18/24 05/18/24 History Allergies Allergy/AdvReac Type Severity Reaction Status Date / Time No Known Allergies Allergy Verified 01/05/24 20:29 Past Med/Surg History Problem List (Updated 05/18/24 @ 23:31 by Borck Galvan MD) Melena (Acute) Medical History (Updated 05/18/24 @ 23:31 by Brock Galvan MD) HTN (hypertension) HLD (hyperlipidemia) ISMAEL (acute kidney injury) Anemia Social History Smoking Status: Former smoker Tobacco Type: Smokeless Tobacco (Dip or Chew) Second Hand Exposure: No; Do You Dip or Chew Tobacco: Yes; Tobacco Cessation Education Requested by Patient: No Hx Alcohol Use: Yes Alcohol type: beer Hx Substance Use: No Preferred Language: Scottish Communication Ability: Effective Director Field Services Required: No Beliefs That Will Affect Care: None Current Living Situation: Alone Other Information That Helps Us Care for You: No Feels Safe at Home: Yes Safety Concerns: Feels Safe At This Time Assistive Devices: Glasses Physical Exam 2 Vital Signs: Vital Signs - 24 hr 05/18/24 16:51 05/18/24 17:16 05/18/24 17:34 Temperature 37 C Temperature Source Temporal Artery Sc an Pulse Rate 101 H Pulse Rate [Apical ] 83 Pulse Rhythm Regular Pulse Strength Normal Respiratory Rate 18 16 Respiratory Effort / Characteristics Non-Labored Sponta neous Respiratory Depth Normal Respiratory Patter n Regular Blood Pressure 106/67 Blood Pressure [Le ft Arm] 139/67 Blood Pressure Annie n 80 Blood Pressure Annie n [Left Arm] 91 Blood Pressure Pos ition Sitting Pulse Oximetry 100 97 97 Oxygen Delivery Me thod Room Air Room Air Room Air Sepsis Recent Feve r Within 48 Hours No Sepsis New/Unexpla ined Change in Men rozina Status No Sepsis Action Take n by Nursing No Action Required 05/18/24 18:05 Temperature Temperature Source Pulse Rate 85 Pulse Rate [Apical ] Pulse Rhythm Pulse Strength Respiratory Rate Respiratory Effort / Characteristics Respiratory Depth Respiratory Patter n Blood Pressure Blood Pressure [Le ft Arm] Blood Pressure Annie n Blood Pressure Annie n [Left Arm] Blood Pressure Pos ition Pulse Oximetry Oxygen Delivery Me thod Sepsis Recent Feve r Within 48 Hours Sepsis New/Unexpla ined Change in Men rozina Status Sepsis Action Take n by Nursing Physical Exam: Physical Exam GENERAL: oriented to person, place, and time. appears well-developed and well- nourished. HENT: Exam performed. - Head: Normocephalic and atraumatic. EYES: Conjunctivae and EOM are normal. Right eye exhibits no discharge. Left eye exhibits no discharge. No scleral icterus. NECK: Normal range of motion. Neck supple. No JVD present. CV: Normal rate, regular rhythm, normal heart sounds and intact distal pulses. There is no peripheral edema. Palpable radial pulses bue. PULM/CHEST: Effort normal and breath sounds normal. No respiratory distress. No stridor. no wheezes. no rales. ABD: The abdomen is soft. There is no tenderness. Rectal: Melanotic stool that is Hemoccult positive. NEURO: Motor and sensation grossly intact. SKIN: Pale PSYCH: normal mood and affect. Behavior is normal. Judgment and thought content normal. Course Course 1702: The patient was evaluated in room C5. A complete history and physical exam was performed Cardiac monitoring: An order was placed for continuous cardiac monitoring. The monitor shows a rate of 80 with sinus rhythm interpreted by me Patient started on Protonix bolus and drip. 1830: Vital signs stable. Labs show hemoglobin of 8.3. Creatinine 2.97. [facility]. Administered Medications Carvedilol (Carvedilol 6.25 Mg Tab) 6.25 mg PO BIDM [facility] Stop: 06/17/24 20:59 Last Admin: 05/18/24 21:00 Dose: 6.25 mg Documented By: BEAR Pantoprazole Sodium 40 mg/ (Dextrose) 100 mls @ 20 mls/hr IV Q5H [facility] Stop: 06/17/24 17:44 Last Admin: 05/18/24 23:03 Dose: 8 mg/hr, 20 mls/hr Documented By: Infusion: 05/18/24 22:48 Dose: Infused Documented By: Admin: 05/18/24 17:48 Dose: 8 mg/hr, 20 mls/hr Documented By: HUONG Sodium Chloride (Nss) 500 mls @ 50 mls/hr IV .Q10H [facility] Stop: 05/19/24 07:59 Last Admin: 05/18/24 22:39 Dose: 50 mls/hr Documented By: BEAR Insulin Aspart (Insulin Aspart Per Unit Charge) 0 units SC ACHS ANGEL[facility] Stop: 05/18/24 23:59 Last Admin: 05/18/24 21:00 Dose: Not Given Documented By: BEAR Latanoprost (Latanoprost 0.005% Op Soln 2.5 Ml Btl) 1 drops OPB HS ANGELES Stop: 06/17/24 20:59 Last Admin: 05/18/24 20:59 Dose: 1 drops Documented By: BEAR Losartan Potassium (Losartan Potassium 50 Mg Tab) 50 mg PO HS ANGELES Stop: 06/17/24 20:59 Last Admin: 05/18/24 21:00 Dose: 50 mg Documented By: BEAR Discontinued Medications Acetaminophen (Acetaminophen 325 Mg Tab) 650 mg PO NOW ONE Stop: 05/18/24 22:56 Last Admin: 05/18/24 23:02 Dose: 650 mg Documented By: BEAR Pantoprazole Sodium 80 mg/ (Dextrose) 120 mls @ 480 mls/hr IV NOW ONE Stop: 05/18/24 17:35 Last Infusion: 05/18/24 18:40 Dose: Infused Documented By: Admin: 05/18/24 17:41 Dose: 480 mls/hr Documented By: HUONG Pantoprazole Sodium (Pantoprazole Bolus/Drip) 1 each IV NOW STA Stop: 05/18/24 17:22 Last Admin: 05/18/24 17:47 Dose: Not Given Documented By: HUONG Medical Decision Making Laboratory Data Attestation: I reviewed the patient's lab results. 05/18/24 22:34 05/18/24 17:01 Lab Results 05/18/24 Range/Units 17:01 WBC 11.33 H (4.8-10.8) K/ul RBC 2.81 L (4.70-6.10) M/uL Hgb 8.3 L (14.0-18.0) g/dl Hct 25.2 L (42.0-52.0) % MCV 89.7 (80.0-100.0) fL MCH 29.5 (25.0-34.0) pg MCHC 32.9 (32.0-36.0) g/dL RDW Std Deviation 41.3 (36.4-46.3) fL RDW Coeff of Emmett 12.7 (11.5-14.5) % Plt Count 443 H (130-400) K/uL MPV 8.7 L (9.4-12.4) fL Immature Gran % (Auto) 0.7 % Neut % (Auto) 77.0 % Lymph % (Auto) 11.5 % Gillespie % (Auto) 6.1 % Eos % (Auto) 4.1 % Baso % (Auto) 0.6 % Neut # (Auto) 8.72 H (1.40-6.50) K/uL Lymph # (Auto) 1.30 (1.20-3.40) K/uL Gillespie # (Auto) 0.69 H (0.11-0.59) K/uL Eos # (Auto) 0.47 (0.00-0.50) K/uL Baso # (Auto) 0.07 (0.00-0.20) K/uL Immature Gran # (Auto) 0.08 (0.01-0.20) K/uL PT 10.8 (9.0-12.0) Seconds INR 1.0 (0.9-1.1) APTT 25 (21-31) Seconds PTT Ratio 0.9 Sodium 140 (136-145) mmol/L Potassium 4.1 (3.5-5.1) mmol/L Chloride 107 (98-107) mmol/L Carbon Dioxide 25 (21-32) mmol/L Anion Gap 8 (3-11) BUN 34 H (6-23) mg/dl Creatinine 2.97 H (0.6-1.4) mg/dl Est Cr Clr Drug Dosing 19.5 ml/min eGFR 20.99 BUN/Creatinine Ratio 11.4 (10-20) Glucose 174 H (70-99(Fasting)) mg/dl Calcium 9.6 (8.6-10.3) mg/dl Total Bilirubin 0.3 (0.2-1.0) mg/dl Direct Bilirubin 0.0 (0-0.2) mg/dl AST 13 (13-39) U/L ALT 13 (7-52) U/L Alkaline Phosphatase 72 (34-104) U/L Total Protein 7.4 (6.0-8.3) gm/dl Albumin 4.5 (3.4-5.0) gm/dl Lipase 63 (11-82) U/L Blood Type O Positive Antibody Screen NEGATIVE Crossmatch See Detail ECG Data Attestation: I personally reviewed and interpreted this ECG as follows: Rate (beats per minute): 84 Rhythm: normal sinus Findings: no ST depression, no ST elevation or no prolonged QT [facility] Narrative 1703: The patient was evaluated in room C5. A complete history and physical exam was performed Cardiac monitoring: An order was placed for continuous cardiac monitoring. The monitor shows a rate of 80 with sinus rhythm interpreted by me Patient started on Protonix bolus and drip. 1830: Vital signs stable. Labs show hemoglobin of 8.3. Creatinine 2.97. [facility] Impression & Plan Melena Discharge Plan Visit Data Chief Complaint: Illness Stated Complaint: ANEMIC, DARK STOOLS LOW BLOOD COUNTS ED Provider: Brock Galvan Discharge Problem: Melena Patient Disposition: Admitted As Inpatient Discharge Instructions Interventions: ED Discharge Assessment Last Done: 05/18/24 19:51
[2024-05-19] MEDS: INSULIN ASPART PER UNIT CHARGE SC SCH ×2 (01:13→17:39)
[2024-05-19 04:42] LABS: Hematocrit (blood only) 24.1 % (42.0-52.0); Hematocrit (blood only) 24.7 % (42.0-52.0); Mean Corpuscular Hemoglobin 29.9 pg (25.0-34.0); Mean Corpuscular Hgb Conc 32.4 g/dL (32.0-36.0); Mean Corpuscular Volume 92.2 fL (80.0-100.0); Mean Platelet Volume 8.6 fL (9.4-12.4); Platelet Count 314 K/uL (130-400); RDW Coefficient of Variation 14.3 % (11.5-14.5); RDW Standard Deviation 47.1 fL (36.4-46.3); Red Blood Count 2.68 M/uL (4.70-6.10)
[2024-05-19 04:59] LABS: BUN Creatinine Ratio 10.1 (10-20); Calcium 8.6 mg/dl (8.6-10.3); Creatinine Clr Calc Pharmacy 19.5 ml/min; Magnesium 1.7 mg/dl (1.7-2.4); Potassium 3.9 mmol/L (3.5-5.1)
[2024-05-19] MEDS: TAMSULOSIN HCL 0.4 MG CAP PO SCH (08:35)
[2024-05-19] MEDS: ROSUVASTATIN CALCIUM 20 MG TAB PO SCH (08:35)
--- NOTE | 2024-05-19 09:14 | Gastrointestinal Consultation ---
Date of Consultation May 19, 2024 Assessment & Plan (1) Melena: 79 year old male w/ history of chronic diastolic heart failure (EF 58%, TTE 2022), PVD, HTN, dyslipidemia, T2DM, CRI, urolithiasis, past tobacco abuse admitted through the ED w/ report of dark stools and anemia recent EGD/Colonoscopy 05/08/24 at [facility] w/ Schatzki ring, 4 cm hiatal hernia, chronic gastritis, acquired duodenal stenosis, non-bleeding duodenal diverticulum, hemorrhoids, 7 mm cecal polyp removed w/ cold snare resected and clipped, diverticulosis. He is hemodynamically stable w/ STONEWORKER 127/67, HGB 8 s/p 1 unit RBC. Recommend to continue hold ASA/Plavix. Continue to trend H&H. Transfuse PRN per primary team. Continue IV PPI BID. We can tentatively plan for EGD/Colonoscopy Wednesday unless urgently indicated over the weekend. He may have soft diet now. Please arrange clear liquid diet Wednesday. Golytely 4L Wednesday. NPO after midnight for endoscopic evaluation Wednesday. If examination is negative, please assist with arrange OP VCE. I spent a total of 60 minutes on the date of service in review of patient's record, and previously obtained information in person and appropriate medical visit, discussion and education of plan, with patient and/or caregiver, placing orders for tests/referral/procedures as medically necessary and documentation of pertinent clinical information in patient's medical records for their visit today. We appreciate assistance in the management of any serological abnormality and corrections to include: hemoglobin >7, INR <2, platelets >50,000, potassium levels >3.5 but <5.3, and sodium levels within 5 points of the reference range prior to endoscopic evaluation. Thank you for allowing us to participate in the care of this patient. Please call with any acute changes, questions or concerns. Please see addendum below with additional recommendation from my supervising physician. Supervising Physician Co-Signing Physician Notes I saw and examined this patient with our nurse practitioner and agree with her assessment and plan. Suspect bleeding is secondary to post polypectomy bleeding after review of his recent endoscopy and colonoscopy. This should resolve spontaneously especially based on the report cauterization was not used. Continue to monitor hemoglobin and hematocrit. Presently not showing any signs of persistent bleeding. However if bleeding recurs will consider repeat endoscopy and colonoscopy next week. History of Present Illness Reason for Consultation: melena Requesting Physician: Teri Baxter MD Attending Physician: Teri Baxter MD History of Present Illness 79 year old male w/ history of chronic diastolic heart failure (EF 58%, TTE 2022), PVD, HTN, dyslipidemia, T2DM, CRI, urolithiasis, past tobacco abuse admitted through the ED w/ report of dark stools and anemia. GI was asked to evaluate for melena. Pt was seen and evaluated, chart reviewed. Suggests he was doing well following his recent EGD/Colonoscopy. Suggests exams were largely unremarkable w/ the exception of one polyp which was removed and clipped. He resumed his plavix and asa the following day of the procedure. Suggests about 3/4 days later he noticed some dark stools. Suggests his bowel have been semi- formed moving 1-2 times daily but very dark and almost black. Denies any BRBPR. Feels well - denies abd pain, nausea, vomiting. No fever, chills, CP, SOB. HGB 6.6 --> 1 unit RBCs --> 8 BUN 30, LINE WALKER 2.96 EGD 05/08/24: Normal upper third of esophagus and middle third of esophagus. Non-obstructing Schatzki ring. Z-line irregular, 37 cm from the incisors. Biopsied. 4 cm hiatal hernia. Chronic gastritis. Biopsied. Acquired duodenal stenosis, likely from prior PUD. Non-bleeding duodenal diverticulum Colonoscopy 05/08/24: Hemorrhoids found on perianal exam. The examined portion of the ileum was normal. One 7 mm polyp in the cecum, removed with a cold snare. Resected and retrieved. Clip (MR conditional) was placed. Mild diverticulosis in the sigmoid colon and in the descending colon. Internal hemorrhoids. The examination was otherwise normal. EGD 01/07/24: 2 cm hiatal hernia. LA Grade B reflux esophagitis with no bleeding. Rule out Majano's esophagus. Biopsies not done as recently on plavix. Acute gastritis, characterized by erythema and congestion (edema). Biopsies not done as on plavix. Normal examined duodenum. Non-bleeding gastric ulcers with no stigmata of bleeding. No specimens collected. Allergies Allergy/AdvReac Type Severity Reaction Status Date / Time No Known Allergies Allergy Verified 01/05/24 20:29 Home Medications Medication Instructions Recorded Confirmed Type acetaminophen 500 mg tablet 500 mg PO DIRECTED PRN 01/05/24 05/18/24 History (Tylenol Extra Strength) ARTHRITIC PAIN clopidogrel 75 mg tablet 75 mg PO QAM 01/05/24 05/18/24 History glucosamine 750 [id number] 1 tab PO BID 01/05/24 05/18/24 History no1 644 mg-C 30 mg-yadira 1 mg tablet (Osteo Bi-Flex Triple Strength) omega-3 fatty acids 1,000 mg 1,000 mg PO DAILY 01/05/24 05/18/24 History capsule rosuvastatin 40 mg tablet 40 mg PO DAILY 01/05/24 05/18/24 History aspirin 81 mg tablet,delayed 81 mg PO DAILY #30 tabs 01/08/24 05/18/24 Rx release (Ecotrin Low Strength) carvedilol 12.5 mg tablet 6.25 mg (1/2 x 12.5 mg) PO BID #0 01/08/24 05/18/24 Rx tabs latanoprost 0.005 % eye drops 1 drp OPB HS 05/18/24 05/18/24 History losartan 50 mg tablet 50 mg PO HS 05/18/24 05/18/24 History pantoprazole 40 mg tablet,delayed 40 mg PO DAILY 05/18/24 05/18/24 History release tamsulosin 0.4 mg capsule 0.4 mg PO QAM 05/18/24 05/18/24 History Patient History Medical History (Updated 05/18/24 @ 23:31 by Brock Galvan MD) HTN (hypertension) HLD (hyperlipidemia) ISMAEL (acute kidney injury) Anemia Social History Smoking Status: Former smoker Tobacco Type: Smokeless Tobacco (Dip or Chew) Second Hand Exposure: No; Do You Dip or Chew Tobacco: Yes; Tobacco Cessation Education Requested by Patient: No Hx Alcohol Use: Yes Alcohol type: beer Hx Substance Use: No Preferred Language: Uzbek Communication Ability: Effective Microfilm Duplicating Unit Supervisor Required: No Beliefs That Will Affect Care: None Current Living Situation: Alone Other Information That Helps Us Care for You: No Feels Safe at Home: Yes Safety Concerns: Feels Safe At This Time Assistive Devices: None Review of Systems Review of Systems: All other findings negative except as noted in HPI. Physical Exam Constitutional: WD/WN, vitals as above Respiratory: normal respiratory effort, lungs clear to auscultation Cardiovascular: RRR, no murmur, no edema Gastrointestinal (Abdomen): normal bowel sounds, soft, nontender, no hepatosplenomegaly Skin: no rashes, warm and dry Results & Data Vital Signs (Past 12 Hours) Vital Signs Temp Pulse Pulse Resp BP BP Pulse Ox 05/19/24 07:33 37.0 C 79 18 127/67 98 05/19/24 03:16 36.6 C 79 18 107/57 L 97 05/19/24 02:50 36.6 C 76 20 123/64 99 05/19/24 01:50 36.8 C 85 20 110/66 98 05/19/24 01:20 36.8 C 81 16 118/62 98 05/19/24 01:05 36.6 C 87 18 113/65 97 05/19/24 00:45 36.6 C 85 18 103/61 96 05/19/24 00:32 80 05/18/24 22:09 36.8 C 82 16 126/67 97 O2 Del Method 05/19/24 07:33 Room Air 05/19/24 03:16 05/19/24 02:50 05/19/24 01:50 05/19/24 01:20 05/19/24 01:05 05/19/24 00:45 05/19/24 00:32 05/18/24 22:09 Room Air Laboratory Results 05/19/24 05/19/24 05/19/24 Range/Units 05:48 04:08 04:08 WBC (4.8-10.8) K/ul RBC (4.70-6.10) M/uL Hgb 8.0 L (14.0-18.0) g/dl Hct 24.1 L 24.7 L (42.0-52.0) % MCV 92.2 (80.0-100.0) fL MCH 29.9 (25.0-34.0) pg MCHC 32.4 (32.0-36.0) g/dL RDW Std Deviation 47.1 H (36.4-46.3) fL RDW Coeff of Emmett 14.3 (11.5-14.5) % Plt Count 314 (130-400) K/uL MPV 8.6 L (9.4-12.4) fL Immature Gran % (Auto) % Neut % (Auto) % Lymph % (Auto) % Lewis % (Auto) % Eos % (Auto) % Baso % (Auto) % Neut # (Auto) (1.40-6.50) K/uL Lymph # (Auto) (1.20-3.40) K/uL Lewis # (Auto) (0.11-0.59) K/uL Eos # (Auto) (0.00-0.50) K/uL Baso # (Auto) (0.00-0.20) K/uL Immature Gran # (Auto) (0.01-0.20) K/uL PT (9.0-12.0) Seconds INR (0.9-1.1) APTT (21-31) Seconds PTT Ratio Sodium 140 (136-145) mmol/L Potassium 3.9 (3.5-5.1) mmol/L Chloride 110 H (98-107) mmol/L Carbon Dioxide 22 (21-32) mmol/L Anion Gap 8 (3-11) BUN 30 H (6-23) mg/dl Creatinine 2.96 H (0.6-1.4) mg/dl Est Cr Clr Drug Dosing 19.5 ml/min eGFR 21.08 BUN/Creatinine Ratio 10.1 (10-20) Glucose 98 (70-99(Fasting)) mg/dl POC Glucose 110 H (70-99) mg/dl Calcium 8.6 (8.6-10.3) mg/dl Magnesium 1.7 (1.7-2.4) mg/dl Total Bilirubin (0.2-1.0) mg/dl Direct Bilirubin (0-0.2) mg/dl AST (13-39) U/L ALT (7-52) U/L Alkaline Phosphatase (34-104) U/L Total Protein (6.0-8.3) gm/dl Albumin (3.4-5.0) gm/dl Lipase (11-82) U/L Blood Type Antibody Screen Crossmatch 05/19/24 05/19/24 05/18/24 Range/Units 04:08 01:11 22:34 WBC 7.70 (4.8-10.8) K/ul RBC 2.68 L (4.70-6.10) M/uL Hgb 8.0 L 6.6 L* (14.0-18.0) g/dl Hct 19.9 L* (42.0-52.0) % MCV (80.0-100.0) fL MCH (25.0-34.0) pg MCHC (32.0-36.0) g/dL RDW Std Deviation (36.4-46.3) fL RDW Coeff of Emmett (11.5-14.5) % Plt Count (130-400) K/uL MPV (9.4-12.4) fL Immature Gran % (Auto) % Neut % (Auto) % Lymph % (Auto) % Lewis % (Auto) % Eos % (Auto) % Baso % (Auto) % Neut # (Auto) (1.40-6.50) K/uL Lymph # (Auto) (1.20-3.40) K/uL Lewis # (Auto) (0.11-0.59) K/uL Eos # (Auto) (0.00-0.50) K/uL Baso # (Auto) (0.00-0.20) K/uL Immature Gran # (Auto) (0.01-0.20) K/uL PT (9.0-12.0) Seconds INR (0.9-1.1) APTT (21-31) Seconds PTT Ratio Sodium (136-145) mmol/L Potassium (3.5-5.1) mmol/L Chloride (98-107) mmol/L Carbon Dioxide (21-32) mmol/L Anion Gap (3-11) BUN (6-23) mg/dl Creatinine (0.6-1.4) mg/dl Est Cr Clr Drug Dosing ml/min eGFR BUN/Creatinine Ratio (10-20) Glucose (70-99(Fasting)) mg/dl POC Glucose 103 H (70-99) mg/dl Calcium (8.6-10.3) mg/dl Magnesium (1.7-2.4) mg/dl Total Bilirubin (0.2-1.0) mg/dl Direct Bilirubin (0-0.2) mg/dl AST (13-39) U/L ALT (7-52) U/L Alkaline Phosphatase (34-104) U/L Total Protein (6.0-8.3) gm/dl Albumin (3.4-5.0) gm/dl Lipase (11-82) U/L Blood Type Antibody Screen Crossmatch 05/18/24 05/18/24 Range/Units 20:54 17:01 WBC 11.33 H (4.8-10.8) K/ul RBC 2.81 L (4.70-6.10) M/uL Hgb 8.3 L (14.0-18.0) g/dl Hct 25.2 L (42.0-52.0) % MCV 89.7 (80.0-100.0) fL MCH 29.5 (25.0-34.0) pg MCHC 32.9 (32.0-36.0) g/dL RDW Std Deviation 41.3 (36.4-46.3) fL RDW Coeff of Emmett 12.7 (11.5-14.5) % Plt Count 443 H (130-400) K/uL MPV 8.7 L (9.4-12.4) fL Immature Gran % (Auto) 0.7 % Neut % (Auto) 77.0 % Lymph % (Auto) 11.5 % Lewis % (Auto) 6.1 % Eos % (Auto) 4.1 % Baso % (Auto) 0.6 % Neut # (Auto) 8.72 H (1.40-6.50) K/uL Lymph # (Auto) 1.30 (1.20-3.40) K/uL Lewis # (Auto) 0.69 H (0.11-0.59) K/uL Eos # (Auto) 0.47 (0.00-0.50) K/uL Baso # (Auto) 0.07 (0.00-0.20) K/uL Immature Gran # (Auto) 0.08 (0.01-0.20) K/uL PT 10.8 (9.0-12.0) Seconds INR 1.0 (0.9-1.1) APTT 25 (21-31) Seconds PTT Ratio 0.9 Sodium 140 (136-145) mmol/L Potassium 4.1 (3.5-5.1) mmol/L Chloride 107 (98-107) mmol/L Carbon Dioxide 25 (21-32) mmol/L Anion Gap 8 (3-11) BUN 34 H (6-23) mg/dl Creatinine 2.97 H (0.6-1.4) mg/dl Est Cr Clr Drug Dosing 19.5 ml/min eGFR 20.99 BUN/Creatinine Ratio 11.4 (10-20) Glucose 174 H (70-99(Fasting)) mg/dl POC Glucose 94 (70-99) mg/dl Calcium 9.6 (8.6-10.3) mg/dl Magnesium (1.7-2.4) mg/dl Total Bilirubin 0.3 (0.2-1.0) mg/dl Direct Bilirubin 0.0 (0-0.2) mg/dl AST 13 (13-39) U/L ALT 13 (7-52) U/L Alkaline Phosphatase 72 (34-104) U/L Total Protein 7.4 (6.0-8.3) gm/dl Albumin 4.5 (3.4-5.0) gm/dl Lipase 63 (11-82) U/L Blood Type O Positive Antibody Screen NEGATIVE Crossmatch See Detail PG Care Time/CCT Total # of Minutes Spent Total Time Spent with Patient: Total time spent is greater than 50% in coordination of care (as documented) at patient's floor/unit and/or counseling patient: Coding Level of Care Code 38563 INT INP/OBS CARE 2/55MIN Diagnoses Melena K92.1
--- NOTE | 2024-05-19 11:32 | Electrocardiogram Report ---
Test Reason : Blood Pressure : */* mmHG Vent. Rate : 84 BPM Atrial Rate : 84 BPM P-R Int : 170 ms QRS Dur : 84 ms QT Int : 388 ms P-R-T Axes : 54 37 64 degrees QTcB Int : 458 ms Normal sinus rhythm Normal ECG No previous ECGs available Confirmed by Julio Pablo ([id number]) on 05/19/2024 11:32:01 AM Referred By: Naomi Miller Confirmed By: Julio Pablo
--- NOTE | 2024-05-19 15:05 | Hospitalist Progress Note ---
Date of Service May 19, 2024 Assessment & Plan (1) Melena: Plan: Acute GI Bleeding/Melena: Acute blood loss anemia Likely secondary to hemorrhoids/Polyps/Diverticulosis/Gastritis Last Colonoscopy:05/08/2024 colonoscopy: Hemorrhoids, one 7 mm polyp in cecum was removed mild diverticulosis sigmoid colon and descending colon, internal hemorrhoids Last Endoscopy:05/08/2024 EGD: Nonobstructing Schatzki ring, hiatal hernia, chronic gastritis which was biopsied, acquired duodenal stenosis, nonbleeding duodenal diverticulum INR:1.0 Hold aspirin, Plavix Avoid anticoagulants, NASIDs Started on IV protonix ggt Gentle IV fluids Hemoglobin dropped to 6.6 and the patient received 1 unit of PRBC. Hemoglobin went up to 8.0 as of this morning Appreciate GI input and recommendation Will observe for the next day or 2 and possible colonoscopy and EGD on Wednesday if remains stable Will start clears orally from Wednesday and start GoLytely 4 L to start around 34 PM on Wednesday CAD s/p stent Carotid disease s/p right carotid endarterectomy Continue statin Hold aspirin, Plavix secondary to GI bleed No cardiac symptoms DM II Diet controlled Insulin sliding scale for now Monitor BGs CKD IV Renal function at baseline Monitor Avoid nephrotoxic agents as able Has chronic kidney disease and the creatinine remains stable at 2.96 BPH Continue tamsulosin Bladder scan as needed Hypertension Continue home medications with holding parameters Monitor blood pressure DVT Px: SCDs for now Admission and Anticipated Discharge Date Admission Date: May 18, 2024 Subjective 05/19/2024 The patient was seen and examined in telemetry unit He was admitted with melena and is status post 1 unit of PRBC No evidence of bleeding per rectum and/or hematemesis since admission Denies any acute symptoms Review of Systems Review of Systems: All systems reviewed and are unremarkable except as noted below Physical Exam Physical Exam: Lying in bed without any acute distress Constitutional: + ill appearing and average body habitus Eyes: PERRL, conjunctivae normal, anicteric sclerae ENMT: external ear and nose normal, oropharynx normal Neck: trachea midline, no thyromegaly Respiratory: no respiratory distress Auscultation: lungs clear to auscultation bilaterally Cardiovascular: Rate/Rhythm: regular rate and regular rhythm; not tachycardic Heart Sounds: normal S1 and normal S2; no murmur Extremities: no edema Gastrointestinal (Abdomen): Inspection/Auscultation: normal bowel sounds; abdomen not distended Percussion/Palpation: abdomen soft; abdomen nontender Musculoskeletal: no acute arthritis involving any of the joint Neurologic: normal touch/pain/proprioception and moves all extremities; no focal motor deficits Lymphatic: no cervical or axillary lymphadenopathy Results & Data Results & Data Vital Signs (Past 12 Hours) Vital Signs Temp Pulse Pulse Resp BP BP Pulse Ox 05/19/24 11:20 36.6 C 77 16 144/74 H 97 05/19/24 07:33 37.0 C 79 18 127/67 98 05/19/24 03:16 36.6 C 79 18 107/57 L 97 O2 Del Method 05/19/24 11:20 Room Air 05/19/24 07:33 Room Air 05/19/24 03:16 Laboratory Results Short CBC 05/18/24 05/18/24 05/19/24 Range/Units 17:01 22:34 04:08 WBC 11.33 H 7.70 (4.8-10.8) K/ul Hgb 8.3 L 6.6 L* 8.0 L (14.0-18.0) g/dl Hct 25.2 L 19.9 L* (42.0-52.0) % Plt Count 443 H (130-400) K/uL 05/19/24 05/19/24 Range/Units 04:08 04:08 WBC (4.8-10.8) K/ul Hgb 8.0 L (14.0-18.0) g/dl Hct 24.7 L 24.1 L (42.0-52.0) % Plt Count 314 (130-400) K/uL [facility] 05/18/24 05/19/24 17:01 04:08 Sodium 140 140 Potassium 4.1 3.9 Chloride 107 110 H Carbon Dioxide 25 22 BUN 34 H 30 H Creatinine 2.97 H 2.96 H Glucose 174 H 98 Calcium 9.6 8.6 Liver Function 05/18/24 Range/Units 17:01 Total Bilirubin 0.3 (0.2-1.0) mg/dl Direct Bilirubin 0.0 (0-0.2) mg/dl AST 13 (13-39) U/L ALT 13 (7-52) U/L Alkaline Phosphatase 72 (34-104) U/L Albumin 4.5 (3.4-5.0) gm/dl Medications Administered Current Inpatient Medications Acetaminophen (Acetaminophen 325 Mg Tab) 650 mg PO Q4H PRN PRN Reason: Pain or Fever Stop: 06/17/24 19:58 Carvedilol (Carvedilol 6.25 Mg Tab) 6.25 mg PO BIDM ANGELES Stop: 06/17/24 20:59 Last Admin: 05/19/24 08:35 Dose: 6.25 mg Dextrose (Dextrose 50% 50 Ml Syringe) 25 - 50 ml IV UD PRN; Protocol PRN Reason: Hypoglycemia Protocol Stop: 06/17/24 19:58 Glucagon (Glucagon For Inj 1 Mg Vial) 1 mg SQ UD PRN; Protocol PRN Reason: Hypoglycemia Protocol Stop: 06/17/24 19:58 Glucose (Glucose 40% Gel 15 Gm Tube) 15 - 30 gm PO UD PRN; Protocol PRN Reason: Hypoglycemia Protocol Stop: 06/17/24 19:58 Glucose (Glucose 10 Tab/Tube) 4 - 8 tab PO UD PRN; Protocol PRN Reason: Hypoglycemia Protocol Stop: 06/17/24 19:58 Pantoprazole Sodium 40 mg/ (Dextrose) 100 mls @ 20 mls/hr IV Q5H [facility] Stop: 06/17/24 17:44 Last Admin: 05/19/24 10:09 Dose: 8 mg/hr, 20 mls/hr Insulin Aspart (Insulin Aspart Per Unit Charge) 0 units SC Q6 ANGELES Stop: 06/18/24 00:00 Last Admin: 05/19/24 12:02 Dose: Not Given Latanoprost (Latanoprost 0.005% Op Soln 2.5 Ml Btl) 1 drops OPB HS [facility] Stop: 06/17/24 20:59 Last Admin: 05/18/24 20:59 Dose: 1 drops Losartan Potassium (Losartan Potassium 50 Mg Tab) 50 mg PO HS [facility] Stop: 06/17/24 20:59 Last Admin: 05/18/24 21:00 Dose: 50 mg Miscellaneous (Carbohydrates For Hypoglycemia ) 15 - 30 gm PO UD PRN PRN Reason: Hypoglycemia Protocol Stop: 06/17/24 19:58 Ondansetron HCl (Ondansetron Inj 2 Mg/Ml 2 Ml Vial) 4 mg IV Q6H PRN PRN Reason: Nausea Stop: 06/17/24 19:58 Polyethylene Glycol (Polyethylene (Miralax) 17 Gm Pack) 17 gm PO DAILY PRN PRN Reason: Constipation Stop: 06/17/24 19:58 Rosuvastatin Calcium (Rosuvastatin Calcium 20 Mg Tab) 40 mg PO DAILY [facility] Stop: 06/18/24 08:59 Last Admin: 05/19/24 08:35 Dose: 40 mg Tamsulosin HCl (Tamsulosin Hcl 0.4 Mg Cap) 0.4 mg PO QAM [facility] Stop: 06/18/24 08:59 Last Admin: 05/19/24 08:35 Dose: 0.4 mg
[2024-05-19] MEDS ORDERED: Nursing to Pharmacy Communication SCH (17:00)
[2024-05-19] MEDS: PANTOprazole 40 MG/10 ML SYR IV SCH (19:54)
[2024-05-20 07:17] LABS: Basophils # (auto) 0.05 K/uL (0.00-0.20); Basophils % (auto) 0.6 %; Eosinophils # (auto) 0.32 K/uL (0.00-0.50); Hematocrit (blood only) 24.4 % (42.0-52.0); Hemoglobin 8.1 g/dl (14.0-18.0); Immature Granulocytes # (auto) 0.02 K/uL (0.01-0.20); Immature Granulocytes % (auto) 0.2 %; Lymphocytes # (auto) 1.28 K/uL (1.20-3.40); Lymphocytes % (auto) 15.9 %; Mean Corpuscular Hemoglobin 30.6 pg (25.0-34.0); Mean Corpuscular Hgb Conc 33.2 g/dL (32.0-36.0); Mean Corpuscular Volume 92.1 fL (80.0-100.0); Mean Platelet Volume 8.4 fL (9.4-12.4); Monocytes # (auto) 0.71 K/uL (0.11-0.59); Monocytes % (auto) 8.8 %; Neutrophils # (auto) 5.68 K/uL (1.40-6.50); Neutrophils % (auto) 70.5 %; Platelet Count 302 K/uL (130-400); RDW Coefficient of Variation 13.8 % (11.5-14.5); RDW Standard Deviation 46.5 fL (36.4-46.3); Red Blood Count 2.65 M/uL (4.70-6.10); White Blood Count 8.06 K/ul (4.8-10.8)
[2024-05-20 07:41] LABS: BUN Creatinine Ratio 9.4 (10-20); Calcium 8.9 mg/dl (8.6-10.3); Potassium 3.9 mmol/L (3.5-5.1)
[2024-05-20] MEDS: bisacodyL 10 MG SUPP PR STA (11:16)
[2024-05-20] MEDS: MAGNESIUM HYDROXIDE SUSP 30 ML UDC PO ONE (11:16)
--- NOTE | 2024-05-20 14:22 | Hospitalist Progress Note ---
Date of Service May 20, 2024 Assessment & Plan (1) Melena: Plan: Acute GI Bleeding/Melena: Acute blood loss anemia Likely secondary to hemorrhoids/Polyps/Diverticulosis/Gastritis Last Colonoscopy:05/08/2024 colonoscopy: Hemorrhoids, one 7 mm polyp in cecum was removed mild diverticulosis sigmoid colon and descending colon, internal hemorrhoids Last Endoscopy:05/08/2024 EGD: Nonobstructing Schatzki ring, hiatal hernia, chronic gastritis which was biopsied, acquired duodenal stenosis, nonbleeding duodenal diverticulum INR:1.0 Hold aspirin, Plavix Avoid anticoagulants, NASIDs Started on IV protonix ggt Gentle IV fluids Hemoglobin dropped to 6.6 and the patient received 1 unit of PRBC. Hemoglobin went up to 8.0 as of this morning Appreciate GI input and recommendation Will observe for the next day or 2 and possible colonoscopy and EGD on Wednesday if remains stable Will start clears orally from Wednesday and start GoLytely 4 L to start around 34 PM on Wednesday No bowel movement since admission and will give Dulcolax suppository and also milk of magnesia Clears from tomorrow morning and bowel preparation in the afternoon Possible colonoscopy and EGD on Wednesday CAD s/p stent Carotid disease s/p right carotid endarterectomy Continue statin Hold aspirin, Plavix secondary to GI bleed No cardiac symptoms DM II Diet controlled Insulin sliding scale for now Monitor BGs CKD IV Renal function at baseline Monitor Avoid nephrotoxic agents as able Has chronic kidney disease and the creatinine remains stable at 2.96 BPH Continue tamsulosin Bladder scan as needed Hypertension Continue home medications with holding parameters Monitor blood pressure DVT Px: SCDs for now Admission and Anticipated Discharge Date Admission Date: May 18, 2024 Subjective 05/19/2024 The patient was seen and examined in telemetry unit He was admitted with melena and is status post 1 unit of PRBC No evidence of bleeding per rectum and/or hematemesis since admission Denies any acute symptoms 05/20/2024 Patient was seen and examined in telemetry unit He denies any symptoms but has not had any bowel movement since admission Minimal abdominal discomfort Hemoglobin remains stable Review of Systems Review of Systems: All systems reviewed and are unremarkable except as noted below Physical Exam Physical Exam: Lying in bed without any acute distress Constitutional: + ill appearing and average body habitus Eyes: PERRL, conjunctivae normal, anicteric sclerae ENMT: external ear and nose normal, oropharynx normal Neck: trachea midline, no thyromegaly Respiratory: no respiratory distress Auscultation: lungs clear to auscultation bilaterally Cardiovascular: Rate/Rhythm: regular rate and regular rhythm; not tachycardic Heart Sounds: normal S1 and normal S2; no murmur Extremities: no edema Gastrointestinal (Abdomen): Inspection/Auscultation: normal bowel sounds; abdomen not distended Percussion/Palpation: abdomen soft; abdomen nontender Neurologic: normal touch/pain/proprioception and moves all extremities; no focal motor deficits Lymphatic: no cervical or axillary lymphadenopathy Results & Data Results & Data Vital Signs (Past 12 Hours) Vital Signs Temp Pulse Pulse Resp BP Pulse Ox O2 Del Method 05/20/24 13:54 73 05/20/24 11:01 36.6 C 79 18 147/71 H 99 Room Air 05/20/24 10:42 80 05/20/24 07:01 36.7 C 74 18 118/63 95 Room Air 05/20/24 04:20 36.7 C 79 18 116/65 96 Room Air 05/20/24 04:12 80 Laboratory Results Short CBC 05/20/24 Range/Units 06:45 WBC 8.06 (4.8-10.8) K/ul Hgb 8.1 L (14.0-18.0) g/dl Hct 24.4 L (42.0-52.0) % Plt Count 302 (130-400) K/uL BMP 05/20/24 06:45 Sodium 141 Potassium 3.9 Chloride 108 H Carbon Dioxide 26 BUN 28 H Creatinine 2.99 H Glucose 95 Calcium 8.9 Medications Administered Current Inpatient Medications Acetaminophen (Acetaminophen 325 Mg Tab) 650 mg PO Q4H PRN PRN Reason: Pain or Fever Stop: 06/17/24 19:58 Carvedilol (Carvedilol 6.25 Mg Tab) 6.25 mg PO BIDM [facility] Stop: 06/17/24 20:59 Last Admin: 05/20/24 09:11 Dose: 6.25 mg Dextrose (Dextrose 50% 50 Ml Syringe) 25 - 50 ml IV UD PRN; Protocol PRN Reason: Hypoglycemia Protocol Stop: 06/17/24 19:58 Glucagon (Glucagon For Inj 1 Mg Vial) 1 mg SQ UD PRN; Protocol PRN Reason: Hypoglycemia Protocol Stop: 06/17/24 19:58 Glucose (Glucose 40% Gel 15 Gm Tube) 15 - 30 gm PO UD PRN; Protocol PRN Reason: Hypoglycemia Protocol Stop: 06/17/24 19:58 Glucose (Glucose 10 Tab/Tube) 4 - 8 tab PO UD PRN; Protocol PRN Reason: Hypoglycemia Protocol Stop: 06/17/24 19:58 Pantoprazole Sodium (Protonix) 40 mg in 10 mls @ 5 mls/min IV BID ANGELES Stop: 06/18/24 20:59 Last Admin: 05/20/24 09:11 Dose: 5 mls/min Insulin Aspart (Insulin Aspart Per Unit Charge) 0 units SC ACHS ANGELES Stop: 06/18/24 16:59 Last Admin: 05/20/24 12:05 Dose: Not Given Latanoprost (Latanoprost 0.005% Op Soln 2.5 Ml Btl) 1 drops OPB HS ANGELES Stop: 06/17/24 20:59 Last Admin: 05/19/24 19:55 Dose: 1 drops Losartan Potassium (Losartan Potassium 50 Mg Tab) 50 mg PO HS ANGELES Stop: 06/17/24 20:59 Last Admin: 05/19/24 19:56 Dose: 50 mg Miscellaneous (Carbohydrates For Hypoglycemia ) 15 - 30 gm PO UD PRN PRN Reason: Hypoglycemia Protocol Stop: 06/17/24 19:58 Ondansetron HCl (Ondansetron Inj 2 Mg/Ml 2 Ml Vial) 4 mg IV Q6H PRN PRN Reason: Nausea Stop: 06/17/24 19:58 Polyethylene Glycol (Polyethylene (Miralax) 17 Gm Pack) 17 gm PO DAILY PRN PRN Reason: Constipation Stop: 06/17/24 19:58 Polyethylene Glycol/Electrolytes (Lavage Solution 4000ml) 16 dose PO TODAY@1800 [facility] Stop: 05/22/24 01:00 Rosuvastatin Calcium (Rosuvastatin Calcium 20 Mg Tab) 40 mg PO DAILY ANGELES Stop: 06/18/24 08:59 Last Admin: 05/20/24 09:11 Dose: 40 mg Tamsulosin HCl (Tamsulosin Hcl 0.4 Mg Cap) 0.4 mg PO QAM ANGELES Stop: 06/18/24 08:59 Last Admin: 05/20/24 09:11 Dose: 0.4 mg
[2024-05-21 07:34] LABS: Basophils # (auto) 0.04 K/uL (0.00-0.20); Basophils % (auto) 0.5 %; Eosinophils # (auto) 0.33 K/uL (0.00-0.50); Eosinophils % (auto) 3.8 %; Hematocrit (blood only) 25.1 % (42.0-52.0); Hemoglobin 8.4 g/dl (14.0-18.0); Immature Granulocytes # (auto) 0.02 K/uL (0.01-0.20); Immature Granulocytes % (auto) 0.2 %; Lymphocytes # (auto) 1.22 K/uL (1.20-3.40); Lymphocytes % (auto) 14.2 %; Mean Corpuscular Hemoglobin 30.9 pg (25.0-34.0); Mean Corpuscular Hgb Conc 33.5 g/dL (32.0-36.0); Mean Corpuscular Volume 92.3 fL (80.0-100.0); Mean Platelet Volume 8.5 fL (9.4-12.4); Monocytes # (auto) 0.74 K/uL (0.11-0.59); Monocytes % (auto) 8.6 %; Neutrophils # (auto) 6.24 K/uL (1.40-6.50); Neutrophils % (auto) 72.7 %; Platelet Count 307 K/uL (130-400); RDW Coefficient of Variation 13.9 % (11.5-14.5); Red Blood Count 2.72 M/uL (4.70-6.10); White Blood Count 8.59 K/ul (4.8-10.8)
[2024-05-21 07:49] LABS: BUN Creatinine Ratio 9.9 (10-20); Calcium 9.3 mg/dl (8.6-10.3); Creatinine Clr Calc Pharmacy 18.9 ml/min; Potassium 4.3 mmol/L (3.5-5.1)
--- NOTE | 2024-05-21 11:54 | Hospitalist Progress Note ---
Date of Service May 21, 2024 Assessment & Plan (1) Melena: Plan: Acute GI Bleeding/Melena: Acute blood loss anemia Likely secondary to hemorrhoids/Polyps/Diverticulosis/Gastritis Last Colonoscopy:05/08/2024 colonoscopy: Hemorrhoids, one 7 mm polyp in cecum was removed mild diverticulosis sigmoid colon and descending colon, internal hemorrhoids Last Endoscopy:05/08/2024 EGD: Nonobstructing Schatzki ring, hiatal hernia, chronic gastritis which was biopsied, acquired duodenal stenosis, nonbleeding duodenal diverticulum INR:1.0 Hold aspirin, Plavix Avoid anticoagulants, NASIDs Started on IV protonix ggt Gentle IV fluids Hemoglobin dropped to 6.6 and the patient received 1 unit of PRBC. Hemoglobin went up to 8.0 as of this morning Appreciate GI input and recommendation Will observe for the next day or 2 and possible colonoscopy and EGD on Wednesday if remains stable Will start clears orally from Wednesday and start GoLytely 4 L to start around 34 PM on Wednesday No bowel movement since admission and will give Dulcolax suppository and also milk of magnesia Clears from tomorrow morning and bowel preparation in the afternoon Possible colonoscopy and EGD on Wednesday No evidence of any more GI bleed and hemoglobin stable and denies any symptoms He will have bowel preparation with GoLytely today and n.p.o. after midnight for proposed colonoscopy and EGD tomorrow morning CAD s/p stent Carotid disease s/p right carotid endarterectomy Continue statin Hold aspirin, Plavix secondary to GI bleed No cardiac symptoms DM II Diet controlled Insulin sliding scale for now Monitor BGs CKD IV Renal function at baseline Monitor Avoid nephrotoxic agents as able Has chronic kidney disease and the creatinine remains stable at 2.96 BPH Continue tamsulosin Bladder scan as needed Hypertension Continue home medications with holding parameters Monitor blood pressure DVT Px: SCDs for now Admission and Anticipated Discharge Date Admission Date: May 18, 2024 Subjective 05/19/2024 The patient was seen and examined in telemetry unit He was admitted with melena and is status post 1 unit of PRBC No evidence of bleeding per rectum and/or hematemesis since admission Denies any acute symptoms 05/20/2024 Patient was seen and examined in telemetry unit He denies any symptoms but has not had any bowel movement since admission Minimal abdominal discomfort Hemoglobin remains stable 05/21/2024 The patient was seen and examined in telemetry unit He remains stable and denies any symptoms No more melena and hemoglobin remains stable Will have colonoscopy and possible EGD tomorrow Review of Systems Review of Systems: All systems reviewed and are unremarkable except as noted below Physical Exam Physical Exam: Lying in bed without any acute distress Constitutional: + ill appearing and average body habitus Eyes: PERRL, conjunctivae normal, anicteric sclerae ENMT: external ear and nose normal, oropharynx normal Neck: trachea midline, no thyromegaly Respiratory: no respiratory distress Auscultation: lungs clear to auscultation bilaterally Cardiovascular: Rate/Rhythm: regular rate and regular rhythm; not tachycardic Heart Sounds: normal S1 and normal S2; no murmur Extremities: no edema Gastrointestinal (Abdomen): Inspection/Auscultation: normal bowel sounds; abdomen not distended Percussion/Palpation: abdomen soft; abdomen nontender Neurologic: normal touch/pain/proprioception and moves all extremities; no focal motor deficits Lymphatic: no cervical or axillary lymphadenopathy Results & Data Results & Data Vital Signs (Past 12 Hours) Vital Signs Temp Pulse Pulse Resp BP Pulse Ox O2 Del Method 05/21/24 10:58 76 05/21/24 10:52 36.8 C 72 19 110/68 98 Room Air 05/21/24 07:20 36.9 C 75 19 114/66 96 Room Air 05/21/24 03:14 36.8 C 75 18 115/67 97 Room Air 05/21/24 03:11 79 Laboratory Results Short CBC 05/21/24 Range/Units 07:07 WBC 8.59 (4.8-10.8) K/ul Hgb 8.4 L (14.0-18.0) g/dl Hct 25.1 L (42.0-52.0) % Plt Count 307 (130-400) K/uL BMP 05/21/24 07:07 Sodium 141 Potassium 4.3 Chloride 107 Carbon Dioxide 28 BUN 30 H Creatinine 3.02 H Glucose 103 H Calcium 9.3 Medications Administered Current Inpatient Medications Acetaminophen (Acetaminophen 325 Mg Tab) 650 mg PO Q4H PRN PRN Reason: Pain or Fever Stop: 06/17/24 19:58 Carvedilol (Carvedilol 6.25 Mg Tab) 6.25 mg PO BIDM ANGELES Stop: 06/17/24 20:59 Last Admin: 05/21/24 07:50 Dose: 6.25 mg Dextrose (Dextrose 50% 50 Ml Syringe) 25 - 50 ml IV UD PRN; Protocol PRN Reason: Hypoglycemia Protocol Stop: 06/17/24 19:58 Glucagon (Glucagon For Inj 1 Mg Vial) 1 mg SQ UD PRN; Protocol PRN Reason: Hypoglycemia Protocol Stop: 06/17/24 19:58 Glucose (Glucose 40% Gel 15 Gm Tube) 15 - 30 gm PO UD PRN; Protocol PRN Reason: Hypoglycemia Protocol Stop: 06/17/24 19:58 Glucose (Glucose 10 Tab/Tube) 4 - 8 tab PO UD PRN; Protocol PRN Reason: Hypoglycemia Protocol Stop: 06/17/24 19:58 Pantoprazole Sodium (Protonix) 40 mg in 10 mls @ 5 mls/min IV BID ANGELES Stop: 06/18/24 20:59 Last Admin: 05/20/24 20:16 Dose: 5 mls/min Insulin Aspart (Insulin Aspart Per Unit Charge) 0 units SC ACHS ANGELES Stop: 06/18/24 16:59 Last Admin: 05/21/24 08:39 Dose: Not Given Latanoprost (Latanoprost 0.005% Op Soln 2.5 Ml Btl) 1 drops OPB HS ANGELES Stop: 06/17/24 20:59 Last Admin: 05/20/24 20:16 Dose: 1 drops Losartan Potassium (Losartan Potassium 50 Mg Tab) 50 mg PO HS ANGELES Stop: 06/17/24 20:59 Last Admin: 05/20/24 20:16 Dose: 50 mg Miscellaneous (Carbohydrates For Hypoglycemia ) 15 - 30 gm PO UD PRN PRN Reason: Hypoglycemia Protocol Stop: 06/17/24 19:58 Ondansetron HCl (Ondansetron Inj 2 Mg/Ml 2 Ml Vial) 4 mg IV Q6H PRN PRN Reason: Nausea Stop: 06/17/24 19:58 Polyethylene Glycol (Polyethylene (Miralax) 17 Gm Pack) 17 gm PO DAILY PRN PRN Reason: Constipation Stop: 06/17/24 19:58 Polyethylene Glycol/Electrolytes (Lavage Solution 4000ml) 16 dose PO TODAY@1800 ANGELES Stop: 05/22/24 01:00 Rosuvastatin Calcium (Rosuvastatin Calcium 20 Mg Tab) 40 mg PO DAILY ANGELES Stop: 06/18/24 08:59 Last Admin: 05/21/24 07:50 Dose: 40 mg Tamsulosin HCl (Tamsulosin Hcl 0.4 Mg Cap) 0.4 mg PO QA ANGELES Stop: 06/18/24 08:59 Last Admin: 05/21/24 07:49 Dose: 0.4 mg
[2024-05-21] MEDS: LAVAGE SOLUTION 4000ML PO SCH (18:07)
[2024-05-22 07:05] LABS: Basophils # (auto) 0.05 K/uL (0.00-0.20); Basophils % (auto) 0.8 %; Eosinophils # (auto) 0.27 K/uL (0.00-0.50); Eosinophils % (auto) 4.1 %; Hematocrit (blood only) 24.7 % (42.0-52.0); Hemoglobin 8.2 g/dl (14.0-18.0); Immature Granulocytes # (auto) 0.04 K/uL (0.01-0.20); Immature Granulocytes % (auto) 0.6 %; Lymphocytes # (auto) 1.15 K/uL (1.20-3.40); Lymphocytes % (auto) 17.3 %; Mean Corpuscular Hemoglobin 30.3 pg (25.0-34.0); Mean Corpuscular Hgb Conc 33.2 g/dL (32.0-36.0); Mean Corpuscular Volume 91.1 fL (80.0-100.0); Mean Platelet Volume 8.5 fL (9.4-12.4); Monocytes # (auto) 0.52 K/uL (0.11-0.59); Monocytes % (auto) 7.8 %; Neutrophils # (auto) 4.62 K/uL (1.40-6.50); Neutrophils % (auto) 69.4 %; Platelet Count 309 K/uL (130-400); RDW Coefficient of Variation 13.9 % (11.5-14.5); RDW Standard Deviation 46.5 fL (36.4-46.3); Red Blood Count 2.71 M/uL (4.70-6.10); White Blood Count 6.65 K/ul (4.8-10.8)
--- NOTE | 2024-05-22 09:14 | Anesthesiology Consultation ---
Date of Service May 22, 2024 Assessment & Plan Chart Review Chart Review: Acceptable Risk for Surgery and Patient NOT seen in Pre Admission Testing Consults Requested none ASA ASA3 Proposed Anesthesia Anesthesia Type: MAC Risk / Benefits Reviewed With: PT / POA / Parent / Guardian, Accepts Plan and Informed Consent Obtained History Surgery Operation Date: 05/22/24 16:30 Proposed Procedures p Colonoscopy EGD Dr. David - Aki David MD Height/Weight Height: 5 ft 7 in Weight: 65.1 kg Allergies Allergy/AdvReac Type Severity Reaction Status Date / Time No Known Allergies Allergy Verified 05/22/24 09:03 Medications Home Medications Medication Instructions Recorded Confirmed Last Taken acetaminophen 500 mg tablet 500 mg PO DIRECTED PRN 01/05/24 05/18/24 Unknown (Tylenol Extra Strength) ARTHRITIC PAIN clopidogrel 75 mg tablet 75 mg PO QAM 01/05/24 05/18/24 01/05/24 glucosamine 750 [id number] 1 tab PO BID 01/05/24 05/18/24 01/05/24 08:00 no1 644 mg-C 30 mg-yadira 1 mg tablet (Osteo Bi-Flex Triple Strength) omega-3 fatty acids 1,000 mg 1,000 mg PO DAILY 01/05/24 05/18/24 01/05/24 capsule rosuvastatin 40 mg tablet 40 mg PO DAILY 01/05/24 05/18/24 01/05/24 aspirin 81 mg tablet,delayed 81 mg PO DAILY #30 tabs 01/08/24 05/18/24 Unknown release (Ecotrin Low Strength) carvedilol 12.5 mg tablet 6.25 mg (1/2 x 12.5 mg) PO BID #0 01/08/24 05/18/24 01/05/24 08:00 tabs latanoprost 0.005 % eye drops 1 drp OPB HS 05/18/24 05/18/24 Unknown losartan 50 mg tablet 50 mg PO HS 05/18/24 05/18/24 Unknown pantoprazole 40 mg tablet,delayed 40 mg PO DAILY 05/18/24 05/18/24 Unknown release tamsulosin 0.4 mg capsule 0.4 mg PO QAM 05/18/24 05/18/24 Unknown Active Medications Generic Name Dose Route Start Last Admin Trade Name Freq PRN Reason Stop Dose Admin Carvedilol 6.25 mg 05/18/24 21:00 05/22/24 08:18 Carvedilol 6.25 Mg Tab PO 06/17/24 20:59 Not Given BIDM ANGELES Pantoprazole Sodium 40 mg in 10 mls @ 5 mls/min 05/19/24 21:00 05/22/24 08:18 Protonix IV 06/18/24 20:59 Not Given BID ANGELES Insulin Aspart 0 units 05/19/24 17:00 05/22/24 06:14 Insulin Aspart Per Unit Charge SC 06/18/24 16:59 Not Given ACHS ANGELES Latanoprost 1 drops 05/18/24 21:00 05/21/24 21:50 Latanoprost 0.005% Op Soln 2.5 Ml Btl OPB 06/17/24 20:59 1 drops HS ANGELES Administration Losartan Potassium 50 mg 05/18/24 21:00 05/21/24 21:51 Losartan Potassium 50 Mg Tab PO 06/17/24 20:59 50 mg HS ANGELES Administration Rosuvastatin Calcium 40 mg 05/19/24 09:00 05/22/24 08:18 Rosuvastatin Calcium 20 Mg Tab PO 06/18/24 08:59 Not Given DAILY ANGELES Tamsulosin HCl 0.4 mg 05/19/24 09:00 05/22/24 08:18 Tamsulosin Hcl 0.4 Mg Cap PO 06/18/24 08:59 Not Given QAM ANGLEES NPO Date Last Intake of Fluids: 05/21/24 Time Last Intake of Fluids: 12:00 Date Last Intake of Solids: 05/20/24 Time Last Intake of Solids: 17:30 Past Medical History Medical History (Updated 05/18/24 @ 23:31 by Brock Galvan MD) HTN (hypertension) HLD (hyperlipidemia) ISMAEL (acute kidney injury) Anemia Exercise / Class Metabolic Activity II 4-5 Yardwork/Stairs/Walk up hill Past Anesthesia History No Hx of Anesthesia Complications and No Family Hx of Anesthesia Complications History of PONV No Hx of PONV and No Hx of Motion Sickness Social History Smoking Status: Former smoker Do You Dip or Chew Tobacco: Yes Hx Alcohol Use: Yes Alcohol type: beer alcohol intake frequency: holidays/special occasions only Hx Substance Use: No substance use type: does not use Physical Exam Vital Signs Last Vital Signs Temp 37.2 C 05/22/24 09:06 Pulse 78 05/22/24 09:06 Resp 16 05/22/24 09:06 BP 137/71 05/22/24 09:06 Pulse Ox 97 05/22/24 09:06 O2 Del Method Room Air 05/22/24 09:06 ENMT Mouth: no dentition abnormality Thyromental Distance: > or= 3.5 Finger Breadths Mallampati Class: II Neck normal visual inspection Respiratory normal respiratory effort Auscultation: lungs clear to auscultation bilaterally Cardiovascular Rate/Rhythm: regular rate and regular rhythm Psychiatric Orientation: alert Testing Laboratory Results 05/22/24 06:32 05/21/24 07:07 PT 10.8 Seconds (9.0-12.0) 05/18/24 17:01 INR 1.0 (0.9-1.1) 05/18/24 17:01 APTT 25 Seconds (21-31) 05/18/24 17:01 Blood Type O Positive 05/18/24 17:01 Antibody Screen NEGATIVE 05/18/24 17:01 05/22/24 05/21/24 05:38 23:55 POC Glucose 98 93
--- NOTE | 2024-05-22 09:21 | History & Physical Bridge Note ---
Date of Service May 22, 2024 History & Physical Bridge Note I have examined the patient, reviewed the History & Physical and in the interval since the performance of the History & Physical I have noted the following changes of clinical significance: no changes noted. patient completed his prep, tells me stools are clear. He did have some dark stools still yesterday. no nausea, vomiting, chest pain, or sob. - will plan to proceed with EGD and colonoscopy for today. Supervising Physician Co-Signing Physician Notes I examined the patient and reviewed patient's chart , laboratory data and imaging studies. I agree with with assessment and plan of care as suggested by advanced practice provider
--- NOTE | 2024-05-22 10:00 | GI REPORT ---
[facility] Patient: TEENA HAM : 1945 Sex at : Male Age: 79 Years Procedure: Colonoscopy Date: 05/22/2024 Attending Physician: Aki David MD Referring MD: Teri Baxter Indications: - Evaluation of unexplained GI bleeding presenting with Melena (upper GI source has been excluded) Medications: - Monitored Anesthesia Care Complications: - No immediate complications. Estimated Blood Loss: - Estimated blood loss: None. Procedure: - The pediatric colonoscope was introduced through the anus and advanced to the cecum, identified by appendiceal orifice and ileocecal valve. - The colonoscopy was performed without difficulty. - The quality of the bowel preparation was good. - The patient tolerated the procedure well. Findings: - The perianal examination was normal. - Two small angiodysplastic lesions without bleeding were found in the cecum. Coagulation for tissue destruction using argon plasma was successful. - Many medium-mouthed diverticula were found in the left colon. - No other significant abnormalities were identified in a careful examination of the remainder of the colon. Previously placed Endo Clip was visualized in the cecum. Impression: - Two non-bleeding colonic angiodysplastic lesions. Treated with argon plasma coagulation (APC). - Diverticulosis in the left colon. - No specimens collected. Recommendation: - Observe. Reconsider indications for clopidogrel. Advance diet to regular. Procedure Code(s): - 67217, Colonoscopy, flexible; with ablation of tumor(s), polyp(s), or other lesion(s) (includes pre- and post-dilation and guide wire passage, when performed) Diagnosis Code(s): - K92.1, Melena (includes Hematochezia) - K55.20, Angiodysplasia of colon without hemorrhage - K57.30, Diverticulosis of large intestine without perforation or abscess without bleeding CPT(R) - 2023 copyright [employer]. All Rights Reserved. The CPT codes, CCI edits and ICD codes generated are intended as suggestions and were generated based on input data. These codes are preliminary and upon safety and skill based pay manager review may be revised to meet current compliance and payer requirements. The provider is responsible for the final determination of appropriate codes, and modifiers. Aki David M.D. , This document has been electronically signed. Note Initiated:05/22/2024 Note Completed:05/22/2024 10:00 AM \\[email or web address]\[email or web address]\Data\Provation\Results\LIVE\[id number].pdf
--- NOTE | 2024-05-22 10:03 | GI REPORT ---
[facility] Patient: TEENA HAM : 1945 Sex at : Male Age: 79 Years Procedure: Upper GI endoscopy Date: 05/22/2024 Attending Physician: Aki David MD Referring MD: Teri Baxter Indications: - Melena Medications: - Monitored Anesthesia Care Complications: - No immediate complications. Estimated Blood Loss: - Estimated blood loss: None. Procedure: - The egd scope was introduced through the mouth and advanced to the third part of the duodenum. - The upper GI endoscopy was accomplished without difficulty. - The patient tolerated the procedure well. Findings: - The Z-line was regular and was found 38 cm from the incisors. - The examined esophagus was normal. No evidence of esophagitis or Majano's mucosa. - The entire examined stomach was normal. No evidence of ulcer, blood, gastritis. - A large non-bleeding diverticulum was found in the second portion of the duodenum. - Otherwise the duodenum was normal. Impression: - Z-line regular, 38 cm from the incisors. - Normal esophagus. - No evidence of esophagitis or Majano's mucosa. - Normal stomach. - No evidence of ulcer, blood, gastritis. - Non-bleeding duodenal diverticulum. - Otherwise the duodenum was normal. - No specimens collected. Recommendation: - I anticipate no further need for intervention. - Observe patient's clinical course. - Observe patient's clinical course following today's procedure with therapeutic intervention. - Reconsider indications for clopidogrel. Procedure Code(s): - 12058, Esophagogastroduodenoscopy, flexible, transoral; diagnostic, including collection of specimen(s) by brushing or washing, when performed (separate procedure) Diagnosis Code(s): - K92.1, Melena (includes Hematochezia) - K57.10, Diverticulosis of small intestine without perforation or abscess without bleeding CPT(R) - 2023 copyright [employer]. All Rights Reserved. The CPT codes, CCI edits and ICD codes generated are intended as suggestions and were generated based on input data. These codes are preliminary and upon code enforcement officer review may be revised to meet current compliance and payer requirements. The provider is responsible for the final determination of appropriate codes, and modifiers. Aki David M.D. , This document has been electronically signed. Note Initiated:05/22/2024 Note Completed:05/22/2024 10:03 AM \\[email or web address]\Central\InterfaceData\Data\Provation\Results\LIVE\[id number].pdf
--- NOTE | 2024-05-22 11:21 | Anesthesiology Progress Note ---
Date of Service May 22, 2024 Anesthesia Post Procedure Vital Signs Vital Signs: Temp Pulse Pulse Pulse Resp BP Pulse Ox 05/22/24 10:24 69 18 138/72 97 05/22/24 10:09 72 18 116/61 99 05/22/24 09:54 76 14 80/50 L 99 05/22/24 09:06 37.2 C 78 16 137/71 97 05/22/24 09:00 83 05/22/24 09:00 05/22/24 07:59 36.9 C 81 18 103/66 95 05/22/24 04:07 36.7 C 79 18 112/65 97 05/22/24 00:56 85 05/21/24 23:21 36.7 C 73 16 136/72 98 05/21/24 19:23 36.5 C 88 18 191/73 H 100 05/21/24 17:00 05/21/24 16:19 36.6 C 74 19 148/73 H 100 05/21/24 14:58 78 Pulse Ox O2 Del Method O2 Del Method 05/22/24 10:24 Room Air 05/22/24 10:09 Room Air 05/22/24 09:54 Room Air 05/22/24 09:06 Room Air 05/22/24 09:00 05/22/24 09:00 Room Air 05/22/24 07:59 Room Air 05/22/24 04:07 Room Air 05/22/24 00:56 05/21/24 23:21 Room Air 05/21/24 19:23 Room Air 05/21/24 17:00 97 Room Air 05/21/24 16:19 Room Air 05/21/24 14:58 Transfer of Care Handoff Completed per policy Notes Mental Status: alert / awake / arousable Patient Amnestic to Procedure: Yes Nausea / Vomiting: adequately controlled Pain: adequately controlled Airway Patency, RR, SpO2: stable & adequate BP & HR: stable & adequate Hydration State: stable & adequate Anesthetic Complications: no major complications apparent
--- NOTE | 2024-05-22 13:29 | Hospitalist Progress Note ---
Date of Service May 22, 2024 Assessment & Plan (1) Melena: Plan: Acute GI Bleeding/Melena: Acute blood loss anemia Likely secondary to hemorrhoids/Polyps/Diverticulosis/Gastritis Last Colonoscopy:05/08/2024 colonoscopy: Hemorrhoids, one 7 mm polyp in cecum was removed mild diverticulosis sigmoid colon and descending colon, internal hemorrhoids Last Endoscopy:05/08/2024 EGD: Nonobstructing Schatzki ring, hiatal hernia, chronic gastritis which was biopsied, acquired duodenal stenosis, nonbleeding duodenal diverticulum INR:1.0 Hold aspirin, Plavix Avoid anticoagulants, NASIDs Started on IV protonix ggt Gentle IV fluids Hemoglobin dropped to 6.6 and the patient received 1 unit of PRBC. Hemoglobin went up to 8.0 as of this morning Appreciate GI input and recommendation Will observe for the next day or 2 and possible colonoscopy and EGD on Wednesday if remains stable Will start clears orally from Wednesday and start GoLytely 4 L to start around 34 PM on Wednesday No bowel movement since admission and will give Dulcolax suppository and also milk of magnesia Clears from tomorrow morning and bowel preparation in the afternoon Possible colonoscopy and EGD on Wednesday No evidence of any more GI bleed and hemoglobin stable and denies any symptoms He will have bowel preparation with GoLytely today and n.p.o. after midnight for proposed colonoscopy and EGD tomorrow morning Status post EGD and colonoscopy on 05/22/2024 EGD was unremarkable Colonoscopy did show 2 nonbleeding colonic angiodysplastic lesions which were treated with argon plasma coagulation He was started with regular diet and will be observed for tonight Likely discharge tomorrow morning following repeat check of CBC and PRP CAD s/p stent Carotid disease s/p right carotid endarterectomy Continue statin Hold aspirin, Plavix secondary to GI bleed No cardiac symptoms DM II Diet controlled Insulin sliding scale for now Monitor BGs CKD IV Renal function at baseline Monitor Avoid nephrotoxic agents as able Has chronic kidney disease and the creatinine remains stable at 2.96 BPH Continue tamsulosin Bladder scan as needed Hypertension Continue home medications with holding parameters Monitor blood pressure DVT Px: SCDs for now Admission and Anticipated Discharge Date Admission Date: May 18, 2024 Subjective 05/19/2024 The patient was seen and examined in telemetry unit He was admitted with melena and is status post 1 unit of PRBC No evidence of bleeding per rectum and/or hematemesis since admission Denies any acute symptoms 05/20/2024 Patient was seen and examined in telemetry unit He denies any symptoms but has not had any bowel movement since admission Minimal abdominal discomfort Hemoglobin remains stable 05/21/2024 The patient was seen and examined in telemetry unit He remains stable and denies any symptoms No more melena and hemoglobin remains stable Will have colonoscopy and possible EGD tomorrow 05/22/2024 The patient was seen and examined in telemetry unit He is status post EGD and colonoscopy Started on regular diet and likely discharge tomorrow patient Review of Systems Review of Systems: All systems reviewed and are unremarkable except as noted below Physical Exam Physical Exam: Lying in bed without any acute distress Constitutional: + ill appearing and average body habitus Eyes: PERRL, conjunctivae normal, anicteric sclerae ENMT: external ear and nose normal, oropharynx normal Neck: trachea midline, no thyromegaly Respiratory: no respiratory distress Auscultation: lungs clear to auscultation bilaterally Cardiovascular: Rate/Rhythm: regular rate and regular rhythm; not tachycardic Heart Sounds: normal S1 and normal S2; no murmur Extremities: no edema Gastrointestinal (Abdomen): Inspection/Auscultation: normal bowel sounds; abdomen not distended Percussion/Palpation: abdomen soft; abdomen nontender Neurologic: normal touch/pain/proprioception and moves all extremities; no focal motor deficits Lymphatic: no cervical or axillary lymphadenopathy Results & Data Results & Data Vital Signs (Past 12 Hours) Vital Signs Temp Pulse Pulse Pulse Resp BP Pulse Ox 05/22/24 11:59 36.5 C 99 H 20 115/71 95 05/22/24 10:24 69 18 138/72 97 05/22/24 10:09 72 18 116/61 99 05/22/24 09:54 76 14 80/50 L 99 05/22/24 09:06 37.2 C 78 16 137/71 97 05/22/24 09:00 83 05/22/24 09:00 05/22/24 07:59 36.9 C 81 18 103/66 95 05/22/24 04:07 36.7 C 79 18 112/65 97 O2 Del Method O2 Flow Rate 05/22/24 11:59 Nasal Cannula 2 05/22/24 10:24 Room Air 12/09/24 10:09 Room Air 05/22/24 09:54 Room Air 05/22/24 09:06 Room Air 05/22/24 09:00 05/22/24 09:00 Room Air 05/22/24 07:59 Room Air 05/22/24 04:07 Room Air Laboratory Results Short CBC 05/22/24 Range/Units 06:32 WBC 6.65 (4.8-10.8) K/ul Hgb 8.2 L (14.0-18.0) g/dl Hct 24.7 L (42.0-52.0) % Plt Count 309 (130-400) K/uL I am glad we have Medications Administered Current Inpatient Medications Acetaminophen (Acetaminophen 325 Mg Tab) 650 mg PO Q4H PRN PRN Reason: Pain or Fever Stop: 06/17/24 19:58 Carvedilol (Carvedilol 6.25 Mg Tab) 6.25 mg PO BIDM [facility]ES Stop: 06/17/24 20:59 Last Admin: 05/22/24 08:18 Dose: Not Given Dextrose (Dextrose 50% 50 Ml Syringe) 25 - 50 ml IV UD PRN; Protocol PRN Reason: Hypoglycemia Protocol Stop: 06/17/24 19:58 Glucagon (Glucagon For Inj 1 Mg Vial) 1 mg SQ UD PRN; Protocol PRN Reason: Hypoglycemia Protocol Stop: 06/17/24 19:58 Glucose (Glucose 40% Gel 15 Gm Tube) 15 - 30 gm PO UD PRN; Protocol PRN Reason: Hypoglycemia Protocol Stop: 06/17/24 19:58 Glucose (Glucose 10 Tab/Tube) 4 - 8 tab PO UD PRN; Protocol PRN Reason: Hypoglycemia Protocol Stop: 06/17/24 19:58 Pantoprazole Sodium (Protonix) 40 mg in 10 mls @ 5 mls/min IV BID [facility] Stop: 06/18/24 20:59 Last Admin: 05/22/24 08:18 Dose: Not Given Insulin Aspart (Insulin Aspart Per Unit Charge) 0 units SC ACHS ANGELES Stop: 06/18/24 16:59 Last Admin: 05/22/24 11:19 Dose: Not Given Latanoprost (Latanoprost 0.005% Op Soln 2.5 Ml Btl) 1 drops OPB HS ANG[facility]ES Stop: 06/17/24 20:59 Last Admin: 05/21/24 21:50 Dose: 1 drops Losartan Potassium (Losartan Potassium 50 Mg Tab) 50 mg PO HS ANG[facility]ES Stop: 06/17/24 20:59 Last Admin: 05/21/24 21:51 Dose: 50 mg Miscellaneous (Carbohydrates For Hypoglycemia ) 15 - 30 gm PO UD PRN PRN Reason: Hypoglycemia Protocol Stop: 06/17/24 19:58 Ondansetron HCl (Ondansetron Inj 2 Mg/Ml 2 Ml Vial) 4 mg IV Q6H PRN PRN Reason: Nausea Stop: 06/17/24 19:58 Polyethylene Glycol (Polyethylene (Miralax) 17 Gm Pack) 17 gm PO DAILY PRN PRN Reason: Constipation Stop: 06/17/24 19:58 Rosuvastatin Calcium (Rosuvastatin Calcium 20 Mg Tab) 40 mg PO DAILY [facility] Stop: 06/18/24 08:59 Last Admin: 05/22/24 08:18 Dose: Not Given Tamsulosin HCl (Tamsulosin Hcl 0.4 Mg Cap) 0.4 mg PO QAM [facility] Stop: 06/18/24 08:59 Last Admin: 05/22/24 08:18 Dose: Not Given
[2024-05-22] MEDS: LIDOCAINE 2% 2 ML VIAL/AMP(20MG/ML) INFIL ONE (18:34)
[2024-05-22] MEDS: PROPOFOL IV EMULSION 10 MG/ML 20 ML VIAL IV ONE (18:34)
[2024-05-22 19:28] VITALS: RESP 18
[2024-05-23 02:41] VITALS: O2SAT 96
[2024-05-23 08:49] LABS: Basophils # (auto) 0.05 K/uL (0.00-0.20); Basophils % (auto) 0.7 %; Eosinophils # (auto) 0.25 K/uL (0.00-0.50); Eosinophils % (auto) 3.3 %; Hematocrit (blood only) 25.1 % (42.0-52.0); Hemoglobin 8.5 g/dl (14.0-18.0); Immature Granulocytes # (auto) 0.04 K/uL (0.01-0.20); Immature Granulocytes % (auto) 0.5 %; Lymphocytes # (auto) 0.99 K/uL (1.20-3.40); Mean Corpuscular Hemoglobin 30.6 pg (25.0-34.0); Mean Corpuscular Hgb Conc 33.9 g/dL (32.0-36.0); Mean Corpuscular Volume 90.3 fL (80.0-100.0); Mean Platelet Volume 8.4 fL (9.4-12.4); Monocytes # (auto) 0.48 K/uL (0.11-0.59); Monocytes % (auto) 6.3 %; Neutrophils # (auto) 5.82 K/uL (1.40-6.50); Neutrophils % (auto) 76.2 %; Platelet Count 312 K/uL (130-400); RDW Coefficient of Variation 13.8 % (11.5-14.5); RDW Standard Deviation 45.5 fL (36.4-46.3); Red Blood Count 2.78 M/uL (4.70-6.10); White Blood Count 7.63 K/ul (4.8-10.8)
[2024-05-23 09:08] LABS: BUN Creatinine Ratio 9.7 (10-20); Calcium 9.1 mg/dl (8.6-10.3); Creatinine Clr Calc Pharmacy 17.9 ml/min; Potassium 3.8 mmol/L (3.5-5.1)
--- NOTE | 2024-05-23 09:41 | Gastroenterology Progress Note ---
Date of Service May 23, 2024 Assessment & Plan (1) Melena: Plan No further episodes of darker stools. hgb stable currently. - continue to follow hgb/hct. transfuse as needed. - continue with protonix 40mg bid. - further recommendations to follow, see MD kenny. Admission and Anticipated Discharge Date Admission Date: May 18, 2024 Subjective Patient has not seen any further melena. no brbpr. tolerating diet. he denies any nausea, vomiting, abdominal pain, reflux. Colonoscopy 05/22/24 non bleeding colonic angiodysplastic lesions, divert iculosis. EGD 05/22/24 unremarkable. 05/23/24 hgb 8.5. 05/22/24 hgb 8.2. Review of Systems Review of Systems: All systems reviewed & are unremarkable except as noted in HPI & below Physical Exam Constitutional: WD/WN, vitals as above Respiratory: normal respiratory effort, lungs clear to auscultation Cardiovascular: Rate/Rhythm: regular rate and regular rhythm Gastrointestinal (Abdomen): normal bowel sounds, soft, nontender, no hepatosplenomegaly Psychiatric: Orientation: alert and oriented x 3 Affect: euthymic affect Results & Data Results & Data Vital Signs (Past 12 Hours) Vital Signs Temp Pulse Pulse Resp BP Pulse Ox O2 Del Method 05/23/24 07:49 70 05/23/24 07:49 Room Air 05/23/24 07:36 97.9 F 72 18 108/63 96 Room Air 05/23/24 02:41 98.1 F 78 18 107/61 96 Room Air 05/22/24 22:57 98.1 F 77 18 147/70 H 98 Room Air 05/22/24 22:25 76 Coding Level of Care Code 95873 SUB INP/OBS CARE 1/25MIN Diagnoses Melena K92.1
--- NOTE | 2024-05-23 10:56 | Hospitalist Progress Note ---
Date of Service May 23, 2024 Assessment & Plan (1) Melena: Plan: Acute GI Bleeding/Melena: Acute blood loss anemia Likely secondary to hemorrhoids/Polyps/Diverticulosis/Gastritis Last Colonoscopy:05/08/2024 colonoscopy: Hemorrhoids, one 7 mm polyp in cecum was removed mild diverticulosis sigmoid colon and descending colon, internal hemorrhoids Last Endoscopy:05/08/2024 EGD: Nonobstructing Schatzki ring, hiatal hernia, chronic gastritis which was biopsied, acquired duodenal stenosis, nonbleeding duodenal diverticulum INR:1.0 Hold aspirin, Plavix Avoid anticoagulants, NASIDs Started on IV protonix ggt Gentle IV fluids Hemoglobin dropped to 6.6 and the patient received 1 unit of PRBC. Hemoglobin went up to 8.0 as of this morning Appreciate GI input and recommendation Will observe for the next day or 2 and possible colonoscopy and EGD on Wednesday if remains stable Will start clears orally from Wednesday and start GoLytely 4 L to start around 34 PM on Wednesday No bowel movement since admission and will give Dulcolax suppository and also milk of magnesia Clears from tomorrow morning and bowel preparation in the afternoon Possible colonoscopy and EGD on Wednesday No evidence of any more GI bleed and hemoglobin stable and denies any symptoms He will have bowel preparation with GoLytely today and n.p.o. after midnight for proposed colonoscopy and EGD tomorrow morning No more melena and hemoglobin remained stable Status post EGD and colonoscopy on 05/22/2024 EGD was unremarkable Colonoscopy did show 2 nonbleeding colonic angiodysplastic lesions which were treated with argon plasma coagulation He was started with regular diet and will be observed for tonight Likely discharge tomorrow morning following repeat check of CBC and PRP Repeat blood counts are unremarkable following the EGD and colonoscopy Discussed about the Plavix which will be continued CAD s/p stent Carotid disease s/p right carotid endarterectomy Continue statin Hold aspirin, Plavix secondary to GI bleed No cardiac symptoms DM II Diet controlled Insulin sliding scale for now Monitor BGs CKD IV Renal function at baseline Monitor Avoid nephrotoxic agents as able Has chronic kidney disease and the creatinine remains stable at 2.96 BPH Continue tamsulosin Bladder scan as needed Hypertension Continue home medications with holding parameters Monitor blood pressure DVT Px: SCDs for now Admission and Anticipated Discharge Date Admission Date: May 18, 2024 Subjective 05/19/2024 The patient was seen and examined in telemetry unit He was admitted with melena and is status post 1 unit of PRBC No evidence of bleeding per rectum and/or hematemesis since admission Denies any acute symptoms 05/20/2024 Patient was seen and examined in telemetry unit He denies any symptoms but has not had any bowel movement since admission Minimal abdominal discomfort Hemoglobin remains stable 05/21/2024 The patient was seen and examined in telemetry unit He remains stable and denies any symptoms No more melena and hemoglobin remains stable Will have colonoscopy and possible EGD tomorrow 05/22/2024 The patient was seen and examined in telemetry unit He is status post EGD and colonoscopy Started on regular diet and likely discharge tomorrow patient 05/23/2024 The patient was seen and examined in telemetry unit He is status post EGD and colonoscopy on 05/22/2024 No issues following the procedure and no more hematemesis and/or melena He will be discharged home this afternoon Review of Systems Review of Systems: All systems reviewed and are unremarkable except as noted below Physical Exam Physical Exam: Lying in bed without any acute distress Constitutional: + ill appearing and average body habitus Eyes: PERRL, conjunctivae normal, anicteric sclerae ENMT: external ear and nose normal, oropharynx normal Neck: trachea midline, no thyromegaly Respiratory: no respiratory distress Auscultation: lungs clear to auscultation bilaterally Cardiovascular: Rate/Rhythm: regular rate and regular rhythm; not tachycardic Heart Sounds: normal S1 and normal S2; no murmur Extremities: no edema Gastrointestinal (Abdomen): Inspection/Auscultation: normal bowel sounds; abdomen not distended Percussion/Palpation: abdomen soft; abdomen nontender Neurologic: normal touch/pain/proprioception and moves all extremities; no focal motor deficits Lymphatic: no cervical or axillary lymphadenopathy Results & Data Results & Data Vital Signs (Past 12 Hours) Vital Signs Temp Pulse Pulse Resp BP Pulse Ox O2 Del Method 05/23/24 07:49 70 05/23/24 07:49 Room Air 05/23/24 07:36 36.6 C 72 18 108/63 96 Room Air 05/23/24 02:41 36.7 C 78 18 107/61 96 Room Air 05/22/24 22:57 36.7 C 77 18 147/70 H 98 Room Air Laboratory Results Short CBC 05/23/24 Range/Units 08:23 WBC 7.63 (4.8-10.8) K/ul Hgb 8.5 L (14.0-18.0) g/dl Hct 25.1 L (42.0-52.0) % Plt Count 312 (130-400) K/uL BMP 05/23/24 08:23 Sodium 139 Potassium 3.8 Chloride 104 Carbon Dioxide 28 BUN 31 H Creatinine 3.18 H Glucose 138 H Calcium 9.1 Medications Administered Current Inpatient Medications Acetaminophen (Acetaminophen 325 Mg Tab) 650 mg PO Q4H PRN PRN Reason: Pain or Fever Stop: 06/17/24 19:58 Carvedilol (Carvedilol 6.25 Mg Tab) 6.25 mg PO BIDM [facility] Stop: 06/17/24 20:59 Last Admin: 05/23/24 08:59 Dose: 6.25 mg Dextrose (Dextrose 50% 50 Ml Syringe) 25 - 50 ml IV UD PRN; Protocol PRN Reason: Hypoglycemia Protocol Stop: 06/17/24 19:58 Glucagon (Glucagon For Inj 1 Mg Vial) 1 mg SQ UD PRN; Protocol PRN Reason: Hypoglycemia Protocol Stop: 06/17/24 19:58 Glucose (Glucose 40% Gel 15 Gm Tube) 15 - 30 gm PO UD PRN; Protocol PRN Reason: Hypoglycemia Protocol Stop: 06/17/24 19:58 Glucose (Glucose 10 Tab/Tube) 4 - 8 tab PO UD PRN; Protocol PRN Reason: Hypoglycemia Protocol Stop: 06/17/24 19:58 Pantoprazole Sodium (Protonix) 40 mg in 10 mls @ 5 mls/min IV BID [facility] Stop: 06/18/24 20:59 Last Admin: 05/23/24 08:59 Dose: 5 mls/min Insulin Aspart (Insulin Aspart Per Unit Charge) 0 units SC ACHS [facility] Stop: 06/18/24 16:59 Last Admin: 05/23/24 09:07 Dose: Not Given Latanoprost (Latanoprost 0.005% Op Soln 2.5 Ml Btl) 1 drops OPB HS [facility] Stop: 06/17/24 20:59 Last Admin: 05/22/24 21:24 Dose: 1 drops Losartan Potassium (Losartan Potassium 50 Mg Tab) 50 mg PO HS [facility] Stop: 06/17/24 20:59 Last Admin: 05/22/24 21:25 Dose: 50 mg Miscellaneous (Carbohydrates For Hypoglycemia ) 15 - 30 gm PO UD PRN PRN Reason: Hypoglycemia Protocol Stop: 06/17/24 19:58 Ondansetron HCl (Ondansetron Inj 2 Mg/Ml 2 Ml Vial) 4 mg IV Q6H PRN PRN Reason: Nausea Stop: 06/17/24 19:58 Polyethylene Glycol (Polyethylene (Miralax) 17 Gm Pack) 17 gm PO DAILY PRN PRN Reason: Constipation Stop: 06/17/24 19:58 Rosuvastatin Calcium (Rosuvastatin Calcium 20 Mg Tab) 40 mg PO DAILY [facility] Stop: 06/18/24 08:59 Last Admin: 05/23/24 08:59 Dose: 40 mg Tamsulosin HCl (Tamsulosin Hcl 0.4 Mg Cap) 0.4 mg PO QAM [facility] Stop: 06/18/24 08:59 Last Admin: 05/23/24 08:59 Dose: 0.4 mg
[2024-05-23 11:39] VITALS: BP 130/67; TEMP 98.1
[2024-05-23 12:48] VITALS: PULSE 81
--- NOTE | 2024-05-23 17:49 | Discharge Summary ---
Date of Service May 23, 2024 Admission HPI Per Admitting Provider Patient is 79-year-old male with PMH HTN, dyslipidemia, CAD s/p stent, carotid disease s/p right carotid endarterectomy, DM II, CKD IV, history of GI bleed, CKD, BPH and other medical problems presents for evaluation of abnormal blood work. 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 Patient states that he has been having melena 1-2 bowel movements per day for the last 4 to 5 days. He also reports chills today. Patient had EGD, colonoscopy on 08 May which showed hiatal hernia, chronic gastritis, nonbleeding duodenal diverticulum, internal hemorrhoids, polyp. Patient denies any NSAIDs use. He is on aspirin, Plavix for peripheral vascular disease. His last melanotic bowel movement was this morning. Patient seen by nephrology, Dr. Desouza on 05/17/24. Hgb: 7.1 from Hgb of 10 on 03/06/2024 05/08/2024 EGD: Nonobstructing Schatzki ring, hiatal hernia, chronic gastritis which was biopsied, acquired duodenal stenosis, nonbleeding duodenal diverticulum 05/08/2024 colonoscopy: Hemorrhoids, one 7 mm polyp in cecum was removed mild di verticulosis sigmoid colon and descending colon, internal hemorrhoids Denies any history of chest pain, dyspnea, palpitations, dizziness, diaphoresis, cough, wheezing, hemoptysis, fever, chills, fall, loss of consciousness, headache, weakness, numbness, change in vision, bowel/bladder incontinence, nausea, vomiting, abdominal pain, diarrhea, dysuria, hematuria, recent change in medications . Admission Exam Per Admitting Provider Physical Exam: Physical Exam: Vitals signs as noted above General Appearance:Moderately built and nourished, no apparent distress Head: normocephalic, Atraumatic Eyes: normal inspection, EOMI Neck: supple, Trachea midline Respiratory/Chest: Normal breath sounds, CTA, No accessory muscle use Cardiovascular: S1, S2, No murmur Abdomen/GI:Soft, Non tender, Bowel sounds present Extremities/Musculoskeletal:normal inspection, no edema Neurologic/Psych:AAOX3, grossly no focal neurological deficits Skin: normal color, warm Principal Diagnosis Melena status post EGD and colonoscopy, plan to 2 nonbleeding colonic FORTE dysplastic lesions wire treated with APC. Please okay okay patient, CAD status post stent Discharge Exam Lying in bed without any acute distress Constitutional + ill appearing and average body habitus Eyes PERRL, conjunctivae normal, anicteric sclerae ENMT external ear and nose normal, oropharynx normal Neck trachea midline, no thyromegaly Respiratory no respiratory distress Auscultation: lungs clear to auscultation bilaterally Cardiovascular Rate/Rhythm: regular rate and regular rhythm; not tachycardic Heart Sounds: normal S1 and normal S2; no murmur Extremities: no edema Gastrointestinal (Abdomen) Inspection/Auscultation: normal bowel sounds; abdomen not distended Percussion/Palpation: abdomen soft; abdomen nontender Neurologic normal touch/pain/proprioception and moves all extremities; no focal motor deficits Lymphatic no cervical or axillary lymphadenopathy Discharge Data Allergies Allergy/AdvReac Type Severity Reaction Status Date / Time No Known Allergies Allergy Verified 05/22/24 09:03 Consultations 05/18/24 17:45 ED Decision to Admit Stat 05/18/24 19:59 Consult Gastroenterology Routine Procedures Performed Operation Date: 05/22/24 16:30 Actual Procedures p Esophagogastroduodenoscopy - Aki David MD s Colonoscopy Hemostasis - Aki David MD Hospital Course (1) Melena: Acute GI Bleeding/Melena: Acute blood loss anemia Likely secondary to hemorrhoids/Polyps/Diverticulosis/Gastritis Last Colonoscopy:05/08/2024 colonoscopy: Hemorrhoids, one 7 mm polyp in cecum was removed mild diverticulosis sigmoid colon and descending colon, internal hemorrhoids Last Endoscopy:05/08/2024 EGD: Nonobstructing Schatzki ring, hiatal hernia, chronic gastritis which was biopsied, acquired duodenal stenosis, nonbleeding duodenal diverticulum INR:1.0 Hold aspirin, Plavix Avoid anticoagulants, NASIDs Started on IV protonix ggt Gentle IV fluids Hemoglobin dropped to 6.6 and the patient received 1 unit of PRBC. Hemoglobin went up to 8.0 as of this morning Appreciate GI input and recommendation Will observe for the next day or 2 and possible colonoscopy and EGD on Wednesday if remains stable Will start clears orally from Wednesday and start GoLytely 4 L to start around 34 PM on Wednesday No bowel movement since admission and will give Dulcolax suppository and also milk of magnesia Clears from tomorrow morning and bowel preparation in the afternoon Possible colonoscopy and EGD on Wednesday No evidence of any more GI bleed and hemoglobin stable and denies any symptoms He will have bowel preparation with GoLytely today and n.p.o. after midnight for proposed colonoscopy and EGD tomorrow morning No more melena and hemoglobin remained stable Status post EGD and colonoscopy on 05/22/2024 EGD was unremarkable Colonoscopy did show 2 nonbleeding colonic angiodysplastic lesions which were treated with argon plasma coagulation He was started with regular diet and will be observed for tonight Likely discharge tomorrow morning following repeat check of CBC and PRP Repeat blood counts are unremarkable following the EGD and colonoscopy Discussed about the Plavix which will be continued CAD s/p stent Carotid disease s/p right carotid endarterectomy Continue statin Hold aspirin, Plavix secondary to GI bleed No cardiac symptoms DM II Diet controlled Insulin sliding scale for now Monitor BGs CKD IV Renal function at baseline Monitor Avoid nephrotoxic agents as able Has chronic kidney disease and the creatinine remains stable at 2.96 BPH Continue tamsulosin Bladder scan as needed Hypertension Continue home medications with holding parameters Monitor blood pressure DVT Px: SCDs for now Total Time Total Time Spent Total Time Spent (In Minutes): 35 minutes Discharge Plan Discharge Items Patient Disposition: Home - Self-Care Reason For Visit: MELENA Discharge Diagnosis: Melena status post EGD and colonoscopy, plan to 2 nonbleeding colonic FORTE dysplastic lesions wire treated with APC. Please okay okay patient, CAD status post stent Condition on Discharge: Good Activity: Resume your previous activity Non-emergency contact: Primary Care Provider Call non-emergency contact if: you have any medication questions and your symptoms worsen Follow-up/Referrals: Kelvin Joseph MD [Primary Care Provider] - (Date & Time 05/29/2024 11:20 AM Provider Kelvin Joseph MD Department Family Medicine [facility] ) Diet: Heart Healthy Addtl Attending Provider Instructions: Please take precautions to avoid falls Take your medications as advised Please keep appointments with your healthcare providers Pending Studies at Discharge: No Stand-Alone Forms: My [employer], Smoking Cessation Medications and DC Order Prescriptions: Continued omega-3 fatty acids 1,000 mg Capsule 1,000 mg PO DAILY clopidogrel 75 mg tablet 75 mg PO QAM Hold Instructions: Resume on 02/12/24. Discuss with your primary care physician on when to resume this medication acetaminophen [Tylenol Extra Strength] 500 mg Tablet 500 mg PO DIRECTED PRN (Reason: ARTHRITIC PAIN) rosuvastatin 40 mg tablet 40 mg PO DAILY Osteo Bi-Flex Triple Strength 750 mg-644 mg- 30 mg-1 mg Tablet 1 tab PO BID aspirin [Ecotrin Low Strength] 81 mg tablet,delayed release (DR/EC) 81 mg PO DAILY Qty: 30 1RF Rx Instructions: with a full stomach carvedilol 12.5 mg tablet 6.25 mg PO BID Qty: 0 0RF Rx Instructions: TAKE WITH FOOD latanoprost 0.005 % drops 1 drp OPB HS tamsulosin 0.4 mg capsule 0.4 mg PO QAM losartan 50 mg tablet 50 mg PO HS Changed pantoprazole 40 mg tablet,delayed release (DR/EC) 40 mg PO BID Qty: 60 0RF Discharge Orders: Discharge Order (Routine); Ordered 05/23/24 Ordered By: Teri Baxter Admission Data Admit Date/Time: 05/18/24 18:25 Attending Provider: Teri Baxter Admit Provider: Remy Bentlye Primary Care Provider: Kelvin Joseph Other Providers: Remy Bentley; Dev Juarez; Juarez Long; Mary Spence; Genevieve Olvera; Rosa Elena Yung; Patricia Echevarria; Desiree Sifuentes; William Castillo; Naomi Miller; Andres Potts; Asya Massey; Alice Canales; Eileen Chand; Pamela Wyman; Rufina Fernandes; Myrna Ambrosio; Bimal Noe; Yue Diaz; Ryann Navarro Jr; Aki David; Santosh Melgar; Juancarlos Emmanuel; Tip Hough; Wen Barragan.; Dagoberto Cochran I; Hoa Lira Other Interventions: Discharge Summary Assessment (RN) Last Done: 05/23/24 12:46
== END 2024-05-23 13:34 | disposition home or self-care (01) | DRG 378 ==
LOC: ED 16:39 → 2S 18:25 → SUATTDRO 18:25 → 2S 19:51